=== PATIENT | female | born 1945 | race Caucasian/White ===

== ENCOUNTER 2019-02-13 11:16 | Emergency (ER) | payer MEDICARE ==
[~2019-02-13] VITALS: Ht 154.9 cm; Wt 45.5 kg
[2019-02-13] MEDS ORDERED: ASPE16CR TOP (12:00)
[2019-02-13] MEDS ORDERED: PROAAER10 INH (12:09)
[2019-02-13] MEDS ORDERED: PANT40TA3 PO (12:09)
[2019-02-13] MEDS ORDERED: BENA25CA4 PO (12:09)
[2019-02-13] MEDS ORDERED: VITA-157 PO (12:09)
[2019-02-13] MEDS ORDERED: RENV2TAB PO (12:09)
[2019-02-13] MEDS ORDERED: ONDA4TAB6 PO ×2 (12:09→16:19)
[2019-02-13] MEDS ORDERED: ATOR1TAB19 PO (12:09)
[2019-02-13] MEDS ORDERED: MAPA325T2 PO (12:09)
[2019-02-13] MEDS ORDERED: HYDR-3715 PO (12:09)
[2019-02-13] MEDS ORDERED: DEPA500T2 PO (12:09)
[2019-02-13] MEDS ORDERED: CLONI1TA PO ×2 (12:09)
[2019-02-13] MEDS ORDERED: LISI-538 PO (12:09)
[2019-02-13] MEDS ORDERED: BUPR150T5 PO (12:09)
[2019-02-13] MEDS ORDERED: ELIQ2.5T PO (12:09)
[2019-02-13] MEDS ORDERED: NS 500 ML IV ONE (12:45)
--- NOTE | 2019-02-13 13:04 | REP ---
PA and lateral chest: There are no comparisons. The lung bailey are hyperinflated but otherwise clear. Cardiac size is normal. The shona and mediastinum are unremarkable. There is a dual lumen right IJ central venous catheter with the tips at the confluence of the superior vena cava and right atrium in satisfactory position. There is a density in the right humeral head, nonspecific, blastic metastasis versus enchondroma versus bone infarct. Consider radionuclide bone scan. Impression: Hyperinflation. No acute cardiopulmonary findings. Dual lumen right IJ central venous catheter. Nonspecific density in the right humeral head. Consider radionuclide bone scan. Electronically Signed by Pj Haynes MD 02/13/2019 12:56 P
[2019-02-13 13:07] LABS: BASO # 0.1 10^3/uL (0.0-0.2); EOS # 0.1 10^3/uL (0.0-0.50); HEMATOCRIT 30.6 % (36.0-47.0); HEMOGLOBIN 9.7 g/dl (12.0-15.5); LYMPH # 1.2 10^3/uL (1.5-4.5); LYMPH % 16.2 % (24.0-44.0); MEAN CORPUSCULAR HEMOGLOBIN 31.6 pg (27.0-33.0); MEAN CORPUSCULAR HGB CONC 31.7 g/dl (32.0-36.5); MEAN CORPUSCULAR VOLUME 99.7 fl (80.0-96.0); MONO # 0.6 10^3/uL (0.0-0.8); MONO % 8.4 % (0.0-5.0); NEUTROPHILS # 5.2 10^3/uL (1.8-7.7); PLATELET COUNT, AUTOMATED 288 10^3/uL (150-450); RED BLOOD COUNT 3.07 10^6/uL (4.00-5.40); VENOUS BASE EXCESS -3.3 (-2.0-2.0); VENOUS HCO3 18.5 MEQ/L (23.0-27.0); VENOUS O2 SATURATION 99.3 % (60.0-80.0); VENOUS PARTIAL PRESSURE CO2 23.5 mmHg (38.0-50.0); VENOUS PARTIAL PRESSURE O2 203.1 mmHg (30.0-50.0); VENOUS PH 7.514 UNITS (7.330-7.430); VENOUS STANDARD HCO3 21.7 MEQ/L; VENOUS TOTAL CO2 19.2 MEQ/L (24.0-28.0); WHITE BLOOD COUNT 7.2 10^3/uL (4.0-10.0)
[2019-02-13 13:44] LABS: ALBUMIN 2.9 GM/DL (3.2-5.2); BILIRUBIN,DIRECT 0.1 MG/DL (0.0-0.2); BILIRUBIN,TOTAL 1.6 MG/DL (0.2-1.0); CK-MB VALUE MASS 1.7 NG/ML (<3.6); CREATININE FOR GFR 5.13 MG/DL (0.55-1.30); GLOMERULAR FILTRATION RATE 8.7 (>39); MB/CK RELATIVE INDEX 5.31 (< OR =4); POTASSIUM SERUM 4.1 MEQ/L (3.5-5.1); THYROID STIMULATING HORMONE 0.924 uIU/ML (0.358-3.740); TROPONIN I 0.02 NG/ML (< 0.10)
[2019-02-13] MEDS ORDERED: CEPHALEXIN 500 MG CAP PO ONE (15:15)
[2019-02-13] MEDS ORDERED: KEFL500C17 PO (15:32)
[2019-02-13 16:28] VITALS: BP 176/85
[2019-02-13] MEDS ORDERED: ONDANSETRON 4 MG ORAL DISINTEGRATING TAB (Q0162 PER 1MG) PO ONE (16:30)
[2019-02-13 16:47] VITALS: O2SAT 98
--- NOTE | 2019-02-14 21:12 | ECGEPIP ---
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
--- NOTE | 2019-02-22 09:42 | ED PDOC ---
Post-Departure Follow-Up certified letter sent to pt for fu of cxr .see report. find out pcp name and fax Ayo Felton MD Feb 22, 2019 09:42
== END 2019-02-13 17:10 | disposition home or self-care (01) ==
LOC: M ED 11:16
DX: N30.90 Cystitis, unspecified without hematuria (principal); E86.0 Dehydration; D63.1 Anemia in chronic kidney disease; J44.9 Chronic obstructive pulmonary disease, unspecified; I10 Essential (primary) hypertension; I48.91 Unspecified atrial fibrillation; E78.00 Pure hypercholesterolemia, unspecified; Z86.73 Personal history of transient ischemic attack (TIA), and cerebral infarction without residual deficits; Z99.81 Dependence on supplemental oxygen; Z79.899 Other long term (current) drug therapy; Z79.01 Long term (current) use of anticoagulants; Z88.0 Allergy status to penicillin; Z88.1 Allergy status to other antibiotic agents; Z87.891 Personal history of nicotine dependence
CPT/HCPCS: 36415; 71046; 80048; 80076; 81001; 82550; 82553; 82803; 84443; 84484; 85025; 87088; 87186; 93005; 93041; 99284; Q0162

== ENCOUNTER 2019-02-27 02:19 | Inpatient (IN) | payer MEDICARE ==
[~2019-02-27] VITALS: Ht 154.9 cm; Wt 46.9 kg
[2019-02-27] VITALS (9 sets, daily range): BP systolic 115–173; BP diastolic 57–100
[~2019-02-27 02:19] MED LIST: ASPE16CR TOP; ATOR1TAB19 PO; BENA25CA4 PO; BUPR150T5 PO; CLONI1TA PO; DEPA500T2 PO; ELIQ2.5T PO; HYDR-3715 PO; KEFL500C17 PO; LISI-538 PO; MAPA325T2 PO; ONDA4TAB6 PO; PANT40TA3 PO; PROAAER10 INH; RENV2TAB PO; VITA-157 PO
[2019-02-27 02:45] LABS: HEMATOCRIT 33.2 % (36.0-47.0); HEMOGLOBIN 10.4 g/dl (12.0-15.5); MEAN CORPUSCULAR HEMOGLOBIN 32.3 pg (27.0-33.0); MEAN CORPUSCULAR HGB CONC 31.3 g/dl (32.0-36.5); MEAN CORPUSCULAR VOLUME 103.1 fl (80.0-96.0); PLATELET COUNT, AUTOMATED 205 10^3/uL (150-450); RED BLOOD COUNT 3.22 10^6/uL (4.00-5.40); WHITE BLOOD COUNT 10.6 10^3/uL (4.0-10.0)
[2019-02-27] MEDS ORDERED: AMLO5TAB6 PO (02:51)
[2019-02-27] MEDS ORDERED: COLA100C5 PO (02:51)
[2019-02-27 03:11] LABS: ALBUMIN 2.6 GM/DL (3.2-5.2); ALT/SGPT 13 U/L (12-78); BILIRUBIN,DIRECT < 0.1 MG/DL (0.0-0.2); BILIRUBIN,TOTAL 0.7 MG/DL (0.2-1.0); BLOOD UREA NITROGEN 45 MG/DL (7-18); CALCIUM LEVEL 9.1 MG/DL (8.8-10.2); CARBON DIOXIDE LEVEL 32 MEQ/L (21-32); CHLORIDE LEVEL 98 MEQ/L (98-107); CREATININE FOR GFR 4.37 MG/DL (0.55-1.30); GLOMERULAR FILTRATION RATE 10.5 (>39); GLUCOSE, FASTING 53 MG/DL (70-100); LIPASE 1900 U/L (73-393); POTASSIUM SERUM 5.7 MEQ/L (3.5-5.1); SODIUM LEVEL 138 MEQ/L (136-145); TOTAL PROTEIN 5.6 GM/DL (6.4-8.2)
[2019-02-27 03:13] LABS: LYMPHOCYTES 14 % (16-52); METAMYELOCYTES 10 % (0-0); MONOCYTES 2 % (0-8); MYELOCYTES 1 % (0-0); NEUTROPHILS 69 % (35-75)
[2019-02-27 03:14] LABS: ANISOCYTOSIS 1+; PLATELET ESTIMATE NORMAL (NORMAL)
[2019-02-27 03:15] LABS: HYPOCHROMASIA 1+
[2019-02-27] MEDS ORDERED: MORPHINE 2 MG/ML 1ML SYRINGE (J2270) IV ONE (08:45)
[2019-02-27] MEDS ORDERED: ONDANSETRON 4MG/2ML VIAL (J2405) IV ONE ×3 (09:00→18:15)
--- NOTE | 2019-02-27 09:02 | REPVR ---
EXAM: CT Abdomen and Pelvis Without Contrast EXAM DATE/TIME: 02/27/2019 7:15 AM CLINICAL HISTORY: 73 years old, female; Abdominal pain; Generalized; Additional info: Diffuse abd ttp TECHNIQUE: Imaging protocol: Axial computed tomography images of the abdomen and pelvis without contrast. Coronal and sagittal reformatted images were created and reviewed. Radiation optimization: All CT scans at this facility use at least one of these dose optimization techniques: automated exposure control; mA and/or kV adjustment per patient size (includes targeted exams where dose is matched to clinical indication); or iterative reconstruction. COMPARISON: No relevant prior studies available. FINDINGS: Lungs: Centrilobular emphysema. Pleural space: Small left pleural effusion with adjacent compressive atelectasis. Liver: Normal. No mass. Gallbladder and bile ducts: Intra-and extrahepatic biliary ductal dilatation to the level of the ampulla. Markedly distended gallbladder without other specific signs of acute cholecystitis. Pancreas: Normal. No ductal dilation. Spleen: Normal. No splenomegaly. Adrenals: Normal. No mass. Kidneys and ureters: Bilateral renal cortical atrophy. Small exophytic right renal cyst Stomach and bowel: Moderate stool throughout the colon with distention of the cecum. Nonspecific bowel wall thickening involving stomach and multiple small bowel loops. Appendix: No evidence of appendicitis. Intraperitoneal space: There is small hemopneumoperitoneum highly concerning for hollow viscus perforation. The site of perforation is uncertain. Vasculature: Atherosclerotic disease of the coronary arteries. Atherosclerotic disease of the abdominal aorta. Mild aneurysmal dilatation of the infrarenal portion of the aorta measuring 5 cm. Inferior vena cava filter in place. Lymph nodes: Normal. No enlarged lymph nodes. Bladder: Unremarkable as visualized. Reproductive: Unremarkable as visualized. Bones/joints: Osteopenia. Multilevel degenerative disease and hypertrophy of the lumbar spine. Mild anterolisthesis of L4 on L5 stenosis of the spinal canal. Soft tissues: Unremarkable. IMPRESSION: Small hemopneumoperitoneum highly concerning for hollow viscus perforation. The site of perforation is uncertain. COMMENT: Consistent with the [employer]'s Incidental Findings Committee Report (J Am Sabrina Radiol 2010): Unless the patient's specific circumstances suggest otherwise, any liver lesion 0.5 cm or less, any cystic kidney lesion less than 1.0 cm, and/or any adrenal lesion 1.0 cm or less not otherwise characterized in this report as possessing suspicious or indeterminate imaging features is/are highly likely to be benign and do not require follow-up imaging or biopsy. Electronically signed by: Keaton Don On 02/27/2019 09:02:12 AM
[2019-02-27] MEDS ORDERED: metroNIDAZOLE 500 MG in APPROPRIATE DILUENT 1 EA IV ONE (09:30)
[2019-02-27] MEDS ORDERED: CIPROFLOXACIN 400 MG in APPROPRIATE DILUENT 1 EA IV ONE (09:45)
--- NOTE | 2019-02-27 10:21 | HPEPDOC ---
General Surgery H&P Date of Admission Feb 27, 2019 Attending Physician: CARL TAPIA MD History and Physical CHIEF COMPLAINT: abdominal pain HISTORY OF PRESENT ILLNESS: 73 F on hemodialysis presented to the ER at about 2:00 this morning with continuous crampy abdominal pain since at 3 am with nausea, though no vomiting found to have evidence for free air in the CT consistent with perforated viscus. Her daughter reports history of constipation. She felt constipated yesterday that she wanted to get some labs to disimpact herself. 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 She denies prior episodes similar to this. ALLERGIES: Please see below. HOME MEDICATIONS: Please see below. PAST MEDICAL HISTORY: 1. ESRD on dialysis 2. DVT with filter on eliquis last intake yesterday morning. 3. Hypertension PAST SURGICAL HISTORY: 1. IVC filter 2. AV graft - not working 3. dialysis catheter 4. tubal ligation. PERSONAL/SOCIAL HISTORY: Denies smoking, alcohol use, or recreational drug use. REVIEW OF SYSTEMS: GENERAL: Denies chills, fatigue, fever, weight gain and weight loss. HEENT: Denies blurred vision and double vision. Denies ear symptoms. Denies hoarseness. NECK: Denies any neck pain. CARDIOVASCULAR: Denies chest pain and palpitations. MUSCULOSKELETAL: Denies arthralgias, back pain and thrombophlebitis. SKIN: Denies rash. NEUROLOGIC: Denies headache, stroke and transient ischemic attack. PSYCHIATRIC: Denies anxiety and depression. ENDOCRINE: Denies thyroid disease. HEMATOLOGY/ONCOLOGY: Denies any bleeding or clotting disorder. HEART: Denies any chest pains, palpitations, paroxysmal dyspnea, orthopnea. PULMONARY: Denies chronic cough, dyspnea and wheezing. GASTROINTESTINAL: Denies rectal bleeding, family history of colon cancer, constipation, diarrhea, dysphagia, heartburn and jaundice. GENITOURINARY: Denies dysuria, frequency, hematuria and nocturia. ENDOCRINE: Denies polydipsia, polyphagia, polyuria, heat or cold intolerance. INFECTIOUS: Denies any recent upper respiratory tract infection, UTI, need for use of antibiotics. NUTRITION: Reports good appetite. PHYSICAL EXAMINATION: VITAL SIGNS: Please see below. GENERAL APPEARANCE: Patient is noticeably uncomfortable, not moving on the bed with grimacing with slight movements. Awake, alert, oriented. HEENT: Dry lips normocephalic, atraumatic. Mild pale palpebral conjunctiva. CHEST: No chest wall abnormalities. Normal respiratory motion/effort. NECK: No obvious jugular venous distention. LUNGS: Lung sounds are clear to auscultation bilaterally. No wheezing appreciated. Right sided permacath HEART: No chest wall abnormalities. Heart rate and rhythm are regular with no murmurs. ABDOMEN: Slightly rounded abdomen, moderately distended but soft. Tympanitic to percussion, quiet abdomen. Tender to palpation throughout the abdomen with involuntary guarding. SKIN: Warm and dry. EXTREMITIES: Left arm AV graft. NEUROLOGICAL: Awake, alert, oriented. ANCILLARIES: . LABORATORY DATA: Please see below. MICROBIOLOGY: Please see below. IMAGING: CT abdomen and pelvis Small hemopneumoperitoneum highly concerning for hollow viscus perforation. The site of perforation is uncertain. IMPRESSION AND PLAN: Perforated viscus unknown etiology with generalized peritonitis. I suspect most likely diverticulitis. Patient has been advised of need for surgery. She has generalized peritonitis. Based from her history probably will be acute diverticulitis with perforation. Other differentials would include a perforated ulcer, small bowel. Would start with laparoscopy but most likely would have enough with laparotomy. I advised the patient that she may need temporary colostomy if this turns out to be from diverticulitis with associated: Inflammation. She reports allergy to penicillin when she was in her teens forming a rash, denies any shortness of breath, tongue or throat swelling. She has so far received a dose of metronidazole and is supposed to get a dose of ciprofloxacin. I'll instead Humira dose of Invanz. Her blood sugars noted to be low at 50 a repeat was 34. She will get a dose of D50 IV and I'll put her on glucose containing IV fluids and this will be monitored closely perioperatively. Vital Signs Vital Signs Date Time Temp Pulse Resp B/P (MAP) Pulse Ox O2 Delivery O2 Flow Rate FiO2 02/27/19 09:13 18 02/27/19 08:30 74 157/68 (97) 99 02/27/19 06:00 97.6 Room Air 02/27/19 02:29 2.0 Laboratory Data Labs 24H Laboratory Tests 2 02/27/19 02:39: Nucleated Red Blood Cells % (auto) 0.0, Neutrophils 69, Band Neutrophils 4, Lymphocytes (Manual) 14L, Monocytes (Manual) 2, Metamyelocytes 10H, Myelocytes 1H, Platelet Estimate NORMAL, Hypochromasia 1+, Anisocytosis 1+, Anion Gap 8, Glomerular Filtration Rate 10.5L, Calcium Level 9.1, Aspartate Amino Transf (AST/SGOT) 47H, Alanine Aminotransferase (ALT/SGPT) 13, Alkaline Phosphatase 77, Total Bilirubin 0.7, Direct Bilirubin < 0.1, Total Protein 5.6L, Albumin 2.6L, Albumin/Globulin Ratio 0.87L, Lipase 1900H 02/27/19 06:25: Urine Color YELLOW, Urine Appearance CLOUDYH, Urine pH 8.0, Urine Specific Gr avity 1.013, Urine Protein 2+H, Urine Glucose (UA) NEGATIVE, Urine Ketones NEGATIVE, Urine Blood 1+H, Urine Nitrite NEGATIVE, Urine Bilirubin NEGATIVE, Urine Urobilinogen 0.2, Urine Leukocyte Esterase 2+H, Urine WBC (Auto) 58H, Urine RBC (Auto) 6H, Urine Hyaline Casts (Auto) 0, Urine Bacteria (Auto) 2+H, Urine Squamous Epithelial Cells 8, Urine Transitional Epithelial Cells 3, Urine Renal Epithelial Cells 1, Urine Amorphous Sediment MODERATEH, Urine Sperm (Auto) CBC/BMP Laboratory Tests 02/27/19 02:39 Red Blood Count 3.22 L, Mean Corpuscular Volume 103.1 H, Mean Corpuscular Hemoglobin 32.3, Mean Corpuscular Hemoglobin Concent 31.3 L, Red Cell Distribution Width 17.9 H 02/27/19 07:30 Microbiology Microbiology 02/27/19 Urine Culture, Received Pending Home Medications Scheduled Amlodipine Besylate (Amlodipine Besylate) 5 Mg Tablet, 5 MG PO QHS, (Reported) Apixaban (Eliquis) 2.5 Mg Tablet, 2.5 MG PO BID, (Reported) Atorvastatin Calcium (Atorvastatin Calcium) 10 Mg Tablet, 10 MG PO DAILY, (Repor debora) Bupropion HCl (Bupropion Xl) 150 Mg Tab.er.24h, 150 MG PO DAILY, (Reported) Clonidine Hcl (Clonidine HCl) 0.1 Mg Tablet, 0.1 MG PO TID, (Reported) Divalproex Sodium (Depakote ER) 500 Mg Tab.er.24h, 2 TAB PO QHS, (Reported) Pantoprazole Sodium (Pantoprazole Sodium) 40 Mg Tablet.dr, 40 MG PO DAILY, (Reported) Sevelamer Carbonate (Renvela) 800 Mg Tablet, 1,600 MG PO WM, (Reported) Vit B Comp No.3/Folic/C/Biotin (Mariza-Janak Rx Tablet) 1 Each Tablet, 1 TAB PO DAILY, (Reported) Scheduled PRN Acetaminophen (Mapap) 325 Mg Tablet, 650 MG PO Q4H PRN for PAIN, (Reported) Albuterol Sulfate (Proair Hfa) 8.5 Gm Hfa.aer.ad, 2 PUFF INH Q4H PRN for SHORTNESS OF BREATH, (Reported) Diphenhydramine HCl (Benadryl) 25 Mg Capsule, 12.5 MG PO PRN PRN for ITCHING, (Reported) Docusate Sodium (Colace) 100 Mg Capsule, 100 MG PO DAILY PRN for CONSTIPATION, (Reported) Hydrocodone/Acetaminophen (Hydrocodone-Acetamin 5-325 mg) 1 Each Tablet, 1 TAB PO BID PRN for PAIN, (Reported) Naproxen Sodium (Aleve) 220 Mg Tablet, 220 MG PO QHS PRN for PAIN, (Reported) Ondansetron (Ondansetron Odt) 4 Mg Tab.rapdis, 4 MG PO Q6H PRN for NAUSEA OR VOMITING, (Reported) Peppermint Oil (Ibgard) 90 Mg Capdr...er, 90 MG PO for IBS, (Reported) Allergies Coded Allergies: Penicillins (Verified Allergy, Intermediate, RASH, 02/27/19) ciprofloxacin (Verified Adverse Reaction, Mild, NV, 02/27/19) A-FIB/CHADSVASC A-FIB History Current/History of A-Fib/PAF?: No Current PO Anticoag Therapy: Yes CARL TAPIA MD Feb 27, 2019 10:21
[2019-02-27] MEDS ORDERED: ALEV220T22 PO (10:31)
[2019-02-27] MEDS ORDERED: PEPP90CA PO (10:31)
[2019-02-27] MEDS ORDERED: BUPR-365 PO (10:31)
[2019-02-27] MEDS ORDERED: RENATAB6 PO (10:31)
[2019-02-27] MEDS ORDERED: ROCURONIUM BROMIDE 50 MG/5 ML VIAL As Ordered ONE (10:41)
[2019-02-27] MEDS ORDERED: PROPOFOL 200 MG/20 ML VIAL As Ordered ONE (10:41)
[2019-02-27] MEDS ORDERED: LIDOCAINE 2% INJ 100 MG/5 ML SDV (FOR ANES.) As Ordered ONE (10:41)
[2019-02-27] MEDS ORDERED: dexameTHASONE 4 MG/ML 1ML VIAL (J1100) As Ordered ONE (10:43)
[2019-02-27] MEDS ORDERED: fentaNYL 250 MCG/5 ML INJECTION (J3010) As Ordered ONE (10:44)
[2019-02-27] MEDS ORDERED: MIDAZOLAM INJ 2 MG/2 ML VIAL (J2250) As Ordered ONE (10:44)
[2019-02-27] MEDS ORDERED: PHENYLEPHRINE INJ 10MG/ML VIAL (J2370) As Ordered ONE (10:46)
[2019-02-27] MEDS ORDERED: DEXTROSE 50% 50 ML SYRINGE As Ordered ONE ×2 (10:54→12:50)
[2019-02-27] MEDS ORDERED: MORPHINE 4 MG/ML 1ML VIAL/SYRINGE (J2270) IV ONE (11:00)
[2019-02-27] MEDS ORDERED: DEXTROSE 50% 50 ML SYRINGE IV ONE (11:00)
[2019-02-27] MEDS ORDERED: D5W/0.45% SODIUM CHLORIDE 1,000 ML IV SCH ×3 (11:00→15:45)
[2019-02-27] MEDS ORDERED: ERTAPENEM SODIUM 1 GM in NS MINI-BAG PLUS 50 ML IV ONE (11:00)
[2019-02-27] MEDS ORDERED: LIDOCAINE 1% SDV INJ 30 ML VIAL As Ordered ONE (11:22)
[2019-02-27] MEDS ORDERED: BUPIVACAINE HCL 0.25% 30 ML VIAL As Ordered ONE (11:22)
[2019-02-27] MEDS ORDERED: ONDANSETRON 4MG/2ML VIAL (J2405) As Ordered ONE ×2 (11:50→13:24)
[2019-02-27] MEDS ORDERED: DEXTROSE 50% 50 ML SYRINGE ONE (12:50)
[2019-02-27] MEDS ORDERED: LIDOCAINE 1% SDV INJ 30 ML VIAL ONE (12:50)
[2019-02-27] MEDS ORDERED: BUPIVACAINE HCL 0.25% 30 ML VIAL ONE (12:50)
[2019-02-27] MEDS ORDERED: DEXTROSE 50% 50 ML VIAL ONE (12:50)
[2019-02-27] MEDS ORDERED: DEXTROSE 50% 50 ML VIAL As Ordered ONE (12:50)
--- NOTE | 2019-02-27 12:50 | ECGEPIP ---
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
[2019-02-27] MEDS ORDERED: SUGAMMADEX SODIUM 500 MG/5 ML VIAL (BRIDION) As Ordered ONE (13:37)
[2019-02-27] MEDS ORDERED: D5W/0.9% SODIUM CHLORIDE 1,000 ML IV SCH ×2 (14:01→15:00)
[2019-02-27] MEDS ORDERED: ACETAMINOPHEN TAB 650MG DOSE (2X325MG) PO PRN (14:15)
[2019-02-27] MEDS ORDERED: GLUCAGON FOR INJ 1 MG VIAL (J1610) SC PRN (14:15)
[2019-02-27] MEDS ORDERED: diphenhydrAMINE 12.5MG/5ML ELIXIR UDC PO PRN (14:15)
[2019-02-27] MEDS ORDERED: ALBUTEROL 90 MCG/ACT 8GM HFA INHALER INH PRN (14:15)
[2019-02-27] MEDS ORDERED: GLUCOSE 4 GM CHEW TABLET PO PRN (14:15)
[2019-02-27] MEDS ORDERED: ERTAPENEM SODIUM 1 GM in NS MINI-BAG PLUS 50 ML IV SCH (14:15)
[2019-02-27] MEDS ORDERED: DEXTROSE 50% 50 ML SYRINGE IV PRN (14:15)
--- NOTE | 2019-02-27 14:20 | ROOPDOC ---
[facility] Report Of Operation Report of Operation DATE OF PROCEDURE: 02/27/19 PREPROCEDURE DIAGNOSES: perforated viscus, peritonitis. POSTPROCEDURE DIAGNOSES: perforation at sigmoid colon, diverticulitis vs fecal impaction with perforation. PROCEDURE: Diagnostic Laparoscopy, Converted to Open Exploration, Sigmoid Colectomy with Colostomy. SURGEON: Luisito March MD ANESTHESIA: General Anesthesia. ESTIMATED BLOOD LOSS: Approximately 50 mL. COMPLICATIONS: none, patient hemodynamically stable, extubated but still critically ill. PROCEDURE NOTE: large area of perforation of the sigmoid colon at the postero- lateral wall with fecal soilage of the area, minimal purulent fluid in the pelvis and in the right perihepatic, fecal soilage along left gutter. The area proximal and distal to the perforation remains healthy but her colon including the rectal stump is filled with large, hard stools. DESCRIPTION OF PROCEDURE: Patient was given metronidazole 500 mg IV in the emergency room. I had them give her a dose of Invanz 1 g IV preoperatively. She had apparent skin reaction to the ciprofloxacin 500 mg IV. She was brought to the operating room, placed supine on the table with both arms tucked. Compression boots placed on both low er extremities were DVT prophylaxis. General endotracheal anesthesia started. Anesthesia placed a right radial A-line. Prabhakar catheter was placed for urine output monitoring. Her abdomen was widely prepped and draped down to the peritoneum the usual sterile fashion. We paused for a surgical timeout using both pre-incision safety checklist to verify correct patient, procedure site and additional clinical information prior to beginning the procedure. I began by marking the skin landmarks in preparation for possible colostomy on both sides. I entered abdomen via a small left upper quadrant incision where a Veress needle was inserted in a controlled fashion. CO2 insufflation started to pressure 15 mmHg. Using a same incision a 5 mm optical trocar was placed und er direct vision laparoscope. Insertion site was inspected for injury and none was found. I surveyed the abdomen and immediately noted inflammatory swelling and stool as well as exudates located at the left lower abdomen and pelvis consistent with most likely perforated diverticulitis. There were no other noticeable fluid collections on survey of the abdomen. After determining the most likely site of perforation we ended up for laparoscopy and converted to open laparotomy. Midline incision was created about 2-3 cm above the umbilicus and taken to the level of the symphysis pubis. The subcutaneous layers as well as the anterior fascia was divided with cautery. The posterior sheath and peritoneum was lifted up in between hemostats and opened up under direct vision. This was then enlarged throughout the whole of the skin incision. On entry there was a small amount of purulent material noted in the pelvis. She was placed on a steep Trendelenburg position, her left side tilted up. The Index self-retaining retr actor was set up. The small bowel was retracted away from the pelvis towards the upper quadrants. As previously noted during laparoscopy there was some stool spillage localized on the left side. The omentum was lifted away from the area. There was no gross obstruction as the colon before and after the area of perforation seems to be of the same caliber. She has a very floppy sigmoid colon. She has hard stools all throughout her colon, with noticeable bulging into the wall of the colon with no gross distention noted. She has a very thin mesentery. The sigmoid colon was retracted medially and its attachments to the lateral abdominal and pelvic sidewall along the line of Toldt was opened up. After cleaning off the small amount of stool that spilled out there is a distinct area of perforation the size of a third of the wall on the posterior lateral wall of the mid sigmoid area with a piece of hard stool protruding out from the hole. She does have small amount of diverticulosis within the area. There is only a small amount of inflammatory reaction and this is well localized to the area of perforation. I chose an area distally where the colon seems away from the inflammation I pushed the hard stools distally towards the rectum. A mesenteric window was created and the colon was divided with a 75 mm ALISHA stapler with a green load. Continue to try to push the stools away from the area now is afraid that the hard and stools in the rectum may cause an obstruction thus a ran a running suture of 3-0 Prolene to reinforce the staple line as well as to identify this later on. I felt there is a small amount of sigmoid and left may be on to 2 cm at the cuff. I continued taking down the sigmoid colon mesentery be on the area of perforation and away from the retroperitoneum. I tried to identify the ureter but due to the inflammation, fecal soilage I was not able to definitely identify this but my dissection was well away from the retroperitoneum. The sigmoid colon mesentery was divided with Harmonic scalpel to an area well away from the perforation at the junction of the descending and sigmoid colon and this is where I divided the colon proximally with the same 75 mm ALISHA stapler with green load. The lateral attachments of the descending colon was freed up along the white line of Toldt to the splenic flexure and the descending colon was freed up from the retroperitoneal attachments and lateral to medial dissection but the splenic flexure was left in place mostly. She has adequate length for the colostomy with this. I opened up part of the medial peritoneal reflection to enable the stump of the sigmoid/descending colon to reach the abdominal wall. After passing off the specimen, I then irrigated the abdomen with several liters of warm saline on all four quadrants. I created a circular skin incision on my previously chose an area for colostomy placement on the left lower quadrant area. The subcutaneous tissue was dissected out and divided. The fascia was opened up and the rectus muscles bluntly dissected. The posterior sheath was opened up and enlarged to accommodate 2 fingerbreadths. The colon stump was then delivered through this and positioned in a way that the mesentery is not twisted. After this I irrigated the abdomen and pelvis in all 4 quadrants and in particular in the pelvis and left side of the pelvic sidewall with saline until clear returns. I left a 19 Abdirizak drain going into the pelvis posterior to the rectal stump coming through the right lower quadrant abdominal wall. The peritoneum on the infraumbilical area as well as posterior sheath coming towards the umbilicus was closed under direct visualization with 0 Vicryl. The anterior fascia was then closed starting from bottom with a running suture of double looped 1 PDS on the upper portion of the incision both the anterior and posterior fascia was incorporated with the fascial closure with another one looped PDS. This was tied secure. The subcutaneous tissue was irrigated and slightly undermined to allow for closure. We changed gloves for skin closure. The skin was then closed with imer loosely and I placed Telfa strips to act as lexy for possible subsequent drainage. The drain was secured to the skin. The colostomy was then matured in Breanna fashion. I tried to fish out the accessible hard stools in the descending colon and ran a couple of large stools removed. The colostomy appliance was placed and postoperative dressings were placed. Patient remained hemodynamically stable throughout the procedure. She was promptly awakened, extubated her Prabhakar catheter was removed testis was not putting out much. She was brought to the recovery room in stable condition. LUISITO MARCH MD Feb 27, 2019 14:20
--- NOTE | 2019-02-27 14:21 | POST-OPPD ---
Postoperative Procedure Note Date Of Procedure: Feb 27, 2019 DATE OF PROCEDURE: 02/27/19 PREPROCEDURE DIAGNOSES: perforated viscus, peritonitis. POSTPROCEDURE DIAGNOSES: perforation at sigmoid colon, diverticulitis vs fecal impaction with perforation. PROCEDURE: Diagnostic Laparoscopy, Converted to Open Exploration, Sigmoid Colectomy with Colostomy. SURGEON: Luisito March MD ANESTHESIA: General Anesthesia. ESTIMATED BLOOD LOSS: Approximately 50 mL. COMPLICATIONS: none, patient hemodynamically stable, extubated but still critically ill. Blood sugars are on the low side PROCEDURE NOTE: large area of perforation of the sigmoid colon at the postero- lateral wall with fecal soilage of the area, minimal purulent fluid in the pelvis and in the right perihepatic, fecal soilage along left gutter. The area proximal and distal to the perforation remains healthy but her colon including the rectal stump is filled with large, hard stools. SPECIMENS: sigmoid colon DRAINS: 19 shade drain to deep pelvis LUISITO MARCH MD Feb 27, 2019 14:21
[2019-02-27] MEDS ORDERED: ACETAMINOPHEN 1000MG 100ML IV BTL (OFIRMEV) (J0131 PER 10MG) As Ordered ONE (14:32)
[2019-02-27] MEDS ORDERED: METOCLOPRAMIDE INJ 10MG/2ML VIAL (J2765) As Ordered ONE (14:39)
[2019-02-27] MEDS ORDERED: KETOROLAC 30 MG/ML VIAL (J1885) As Ordered ONE (14:40)
[2019-02-27] MEDS ORDERED: fentaNYL 100 MCG/2 ML INJECTION (J3010) IV PRN (15:00)
[2019-02-27] MEDS ORDERED: ACETAMINOPHEN IV ONE (15:00)
[2019-02-27] MEDS ORDERED: ONDANSETRON 4MG/2ML VIAL (J2405) IV PRN (15:00)
[2019-02-27] MEDS ORDERED: METOCLOPRAMIDE INJ 10MG/2ML VIAL (J2765) IV PRN (15:00)
[2019-02-27] MEDS ORDERED: DILUENT IV ONE (15:00)
[2019-02-27] MEDS ORDERED: HYDROMORPHONE HCL 0.5 MG/ 0.5 ML SYRINGE (J1170 PER 1) As Ordered ONE ×2 (15:13→15:14)
[2019-02-27] MEDS: HYDROMORPHONE HCL 0.5 MG/ 0.5 ML SYRINGE (J1170 PER 1) IV PRN ×5 (15:15→15:35)
[2019-02-27] MEDS ORDERED: fentaNYL 100 MCG/2 ML INJECTION (J3010) As Ordered ONE (15:39)
[2019-02-27] MEDS: cloNIDine 0.1 MG TAB PO SCH ×3 (16:00→23:36)
--- NOTE | 2019-02-27 16:01 | CR.PDOC ---
General Date of Consultation: Feb 27, 2019 Attending Physician: CARL TAPIA MD Consultation REASON FOR CONSULTATION/CHIEF COMPLAINT: . Management of medical comorbidities HISTORY OF PRESENT ILLNESS: . 73-year-old female with past medical history of hypertension, dyslipidemia, end- stage renal disease on hemodialysis, DVT status post IVC filter on Eliquis presented to the ER with a chief complaint of abdominal pain. The patient's history was limited as she was seen postoperatively. According to the patient's daughter, who is at the bedside the patient started to have crampy abdominal pain that started about 5 days ago. She notes that the patient was nauseous, but denied any vomiting, fever, chills, or any diarrhea. In the ER, a CT scan of the abdomen/pelvis was notable for a perforated viscus. The patient was admitted under the Gen. surgery service and taken to the operating room urgently for surgical intervention. The hospitalist service has been consulted for management of the patient's medical comorbidities. ALLERGIES: Please see below. HOME MEDICATIONS: Please see below. PAST MEDICAL HISTORY: As noted in HPI. PAST SURGICAL HISTORY: 1. IVC filter 2. AV graft - not working 3. dialysis catheter 4. tubal ligation. REVIEW OF SYSTEMS: 10 point review of systems Limited due to the patient's clinical condition postoperatively PHYSICAL EXAMINATION: VITAL SIGNS: Please see below. GENERAL APPEARANCE: . Awake, alert, answering questions. In mild-moderate distress due to pain following surgery. HEENT: . Normocephalic, atraumatic RESPIRATORY: . Diminished breath sounds diffusely CARDIOVASCULAR: . Normal rate, normal S1, S2 ABDOMEN: . Patient noted to have surgical dressing placed vertically across abdominal wall. Colostomy bag + in the LLQ EXTREMITIES: . No erythema, no tenderness LABORATORY DATA: Please see below. ASSESSMENT/PLAN: Perforation at Sigmoid Colon CT abd/pel notable for perforated viscus s/p Diagnostic Laparoscopy converted to Open Exploration with Sigmoid Colectomy and Colostomy Placement on 02/27 Cultures from the OR pending Patient on Invanz Keep NPO Patient hemodynamically stable post-operatively--We will cont to monitor We will follow up Gen Surg recommendations Hypoglycemia The patient's blood glucose level was noted to be 37 this AM s/p dextrose and IVF Hydration with D5W with appropriate response---Patient not on any oral hypoglycemic therapy or Insulin based off of med reconciliation We will cont D5W with IVF at a judicious rate given the patient's history of requiring HD. We will cont to monitor the patient's fingerstick levels ESRD on HD Nephrology consulted, dialysis as per them Hx of DVT s/p IVC Filter Patient on Eliquis at baseline, this has been held 2/ surgery To be continued as per Gen Surg HTN Cont Norvasc, Clonidine Dyslipidemia Continue statin GI prophylaxis Protonix IV DVT prophylaxis SCDs/TEDs (Restart Eliquis/ or start Heparin SC on 03/01 as per Gen Surg discretion) Vital Signs/I&O Vital Signs Date Time Temp Pulse Resp B/P (MAP) Pulse Ox O2 Delivery O2 Flow Rate FiO2 02/27/19 15:30 16 97 2 02/27/19 15:15 83 171/77 (108) 02/27/19 15:00 96.6 02/27/19 11:27 Room Air Laboratory Data Labs 24H Laboratory Tests 2 02/27/19 02:39: Nucleated Red Blood Cells % (auto) 0.0, Neutrophils 69, Band Neutrophils 4, Lymphocytes (Manual) 14L, Monocytes (Manual) 2, Metamyelocytes 10H, Myelocytes 1H, Platelet Estimate NORMAL, Hypochromasia 1+, Anisocytosis 1+, Anion Gap 8, Glomerular Filtration Rate 10.5L, Calcium Level 9.1, Aspartate Amino Transf (AST/SGOT) 47H, Alanine Aminotransferase (ALT/SGPT) 13, Alkaline Phosphatase 77, Total Bilirubin 0.7, Direct Bilirubin < 0.1, Total Protein 5.6L, Albumin 2.6L, Albumin/Globulin Ratio 0.87L, Lipase 1900H 02/27/19 06:25: Urine Color YELLOW, Urine Appearance CLOUDYH, Urine pH 8.0, Urine Specific [place] 1.013, Urine Protein 2+H, Urine Glucose (UA) NEGATIVE, Urine Ketones NEGATIVE, Urine Blood 1+H, Urine Nitrite NEGATIVE, Urine Bilirubin NEGATIVE, Urine Urobilinogen 0.2, Urine Leukocyte Esterase 2+H, Urine WBC (Auto) 58H, Urine RBC (Auto) 6H, Urine Hyaline Casts (Auto) 0, Urine Bacteria (Auto) 2+H, Urine Squamous Epithelial Cells 8, Urine Transitional Epithelial Cells 3, Urine Renal Epithelial Cells 1, Urine Amorphous Sediment MODERATEH, Urine Sperm (Auto) 02/27/19 10:34: Bedside Glucose (Misc Panel) 37*L 02/27/19 11:28: Bedside Glucose (Misc Panel) 154H 02/27/19 12:41: POC pH (Misc Panel) 7.343L, POC Base Excess (Misc Panel) 2.0, POC Saturated Perc ent O2 (Misc) 100H, POC pO2 (Misc Panel) 257.0H, POC pCO2 (Misc Panel) 51.1H, POC HCO3 (Misc Panel) 27.7H, POC Glucose (Misc Panel) 88, POC Sodium (Misc Panel) 136, POC Potassium (Misc Panel) 4.1, POC Total CO2 (Misc Panel) 29.0H, POC Ionized Calcium (Misc Panel) 4.7, POC Hemoglobin (Calculated)(Misc) 9.5L, POC Hematocrit (Misc Panel) 28.0L 02/27/19 14:24: Bedside Glucose (Misc Panel) 143H CBC/BMP Laboratory Tests 02/27/19 02:39 Red Blood Count 3.22 L, Mean Corpuscular Volume 103.1 H, Mean Corpuscular Hemoglobin 32.3, Mean Corpuscular Hemoglobin Concent 31.3 L, Red Cell Distribution Width 17.9 H 02/27/19 07:30 Microbiology Microbiology 02/27/19 Anaerobic Culture, Received Pending 02/27/19 Urine Culture, Received Pending 02/27/19 Gram Stain - Final, Resulted 02/27/19 Abscess Culture, Resulted Pending Allergies Coded Allergies: Penicillins (Verified Allergy, Intermediate, RASH, 02/27/19) ciprofloxacin (Verified Adverse Reaction, Mild, NV, 02/27/19) Home Medications Scheduled Amlodipine Besylate (Amlodipine Besylate) 5 Mg Tablet, 5 MG PO QHS, (Reported) Apixaban (Eliquis) 2.5 Mg Tablet, 2.5 MG PO BID, (Reported) Atorvastatin Calcium (Atorvastatin Calcium) 10 Mg Tablet, 10 MG PO DAILY, (Reported) Bupropion HCl (Bupropion Xl) 150 Mg Tab.er.24h, 150 MG PO DAILY, (Reported) Clonidine Hcl (Clonidine HCl) 0.1 Mg Tablet, 0.1 MG PO TID, (Reported) Divalproex Sodium (Depakote ER) 500 Mg Tab.er.24h, 2 TAB PO QHS, (Reported) Pantoprazole Sodium (Pantoprazole Sodium) 40 Mg Tablet.dr, 40 MG PO DAILY, (Reported) Sevelamer Carbonate (Renvela) 800 Mg Tablet, 1,600 MG PO WM, (Reported) Vit B Comp No.3/Folic/C/Biotin (Mariza-Janak Rx Tablet) 1 Each Tablet, 1 TAB PO DAILY, (Reported) Scheduled PRN Acetaminophen (Mapap) 325 Mg Tablet, 650 MG PO Q4H PRN for PAIN, (Reported) Albuterol Sulfate (Proair Hfa) 8.5 Gm Hfa.aer.ad, 2 PUFF INH Q4H PRN for SHOR TNESS OF BREATH, (Reported) Diphenhydramine HCl (Benadryl) 25 Mg Capsule, 12.5 MG PO PRN PRN for ITCHING, (Reported) Docusate Sodium (Colace) 100 Mg Capsule, 100 MG PO DAILY PRN for CONSTIPATION, (Reported) Hydrocodone/Acetaminophen (Hydrocodone-Acetamin 5-325 mg) 1 Each Tablet, 1 TAB PO BID PRN for PAIN, (Reported) Naproxen Sodium (Aleve) 220 Mg Tablet, 220 MG PO QHS PRN for PAIN, (Reported) Ondansetron (Ondansetron Odt) 4 Mg Tab.rapdis, 4 MG PO Q6H PRN for NAUSEA OR VOMITING, (Reported) Peppermint Oil (Ibgard) 90 Mg Capdr...er, 90 MG PO for IBS, (Reported) DON DAVIS MD Feb 27, 2019 16:01
[2019-02-27] MEDS ORDERED: KETOROLAC 30 MG/ML VIAL (J1885) IV ONE (17:00)
[2019-02-27] MEDS ORDERED: HumaLOG INSULIN (NovoLOG) PER UNIT SC SCH ×2 (17:30→21:00)
[2019-02-27] MEDS: PANTOPRAZOLE 40MG INJ (PROTONIX) (C9113) IV SCH (17:44)
[2019-02-27 18:03] LABS: HEMATOCRIT 32.8 % (36.0-47.0); HEMOGLOBIN 10.1 g/dl (12.0-15.5); MEAN CORPUSCULAR HEMOGLOBIN 32.2 pg (27.0-33.0); MEAN CORPUSCULAR HGB CONC 30.8 g/dl (32.0-36.5); MEAN CORPUSCULAR VOLUME 104.5 fl (80.0-96.0); PLATELET COUNT, AUTOMATED 219 10^3/uL (150-450); RED BLOOD COUNT 3.14 10^6/uL (4.00-5.40); WHITE BLOOD COUNT 8.7 10^3/uL (4.0-10.0)
[2019-02-27 18:25] LABS: CALCIUM LEVEL 8.1 MG/DL (8.8-10.2); CREATININE FOR GFR 4.7 MG/DL (0.55-1.30); GLOMERULAR FILTRATION RATE 9.6 (>39); POTASSIUM SERUM 4.8 MEQ/L (3.5-5.1)
[2019-02-27] MEDS ORDERED: PROMETHAZINE INJ 25 MG/ML VIAL (J2550) IV PRN (19:45)
[2019-02-27] MEDS: amLODIPine 5 MG TAB PO SCH ×2 (21:00→23:37)
[2019-02-27] MEDS: DIVALPROEX 500MG *ER* TAB PO SCH ×2 (21:00→23:37)
[2019-02-27] MEDS: ONDANSETRON 4MG/2ML VIAL (J2405) IV PRN (23:47)
[2019-02-27] MEDS: PERCOCET 5MG/325MG TAB PO PRN (23:48)
[2019-02-28] VITALS (21 sets, daily range): BP systolic 98–202; BP diastolic 54–98
[2019-02-28 05:08] LABS: HEMATOCRIT 27.1 % (36.0-47.0); HEMOGLOBIN 8.6 g/dl (12.0-15.5); MEAN CORPUSCULAR HEMOGLOBIN 32.2 pg (27.0-33.0); MEAN CORPUSCULAR HGB CONC 31.7 g/dl (32.0-36.5); MEAN CORPUSCULAR VOLUME 101.5 fl (80.0-96.0); PLATELET COUNT, AUTOMATED 202 10^3/uL (150-450); RED BLOOD COUNT 2.67 10^6/uL (4.00-5.40); WHITE BLOOD COUNT 7.4 10^3/uL (4.0-10.0)
[2019-02-28 05:18] LABS: CALCIUM LEVEL 7.8 MG/DL (8.8-10.2); CREATININE FOR GFR 2.8 MG/DL (0.55-1.30); GLOMERULAR FILTRATION RATE 17.5 (>39); POTASSIUM SERUM 4.7 MEQ/L (3.5-5.1)
[2019-02-28 06:13] LABS: ANISOCYTOSIS 1+; HYPOCHROMASIA 1+; LYMPHOCYTES 6 % (16-52); MONOCYTES 3 % (0-8); NEUTROPHILS 78 % (35-75); PLATELET ESTIMATE NORMAL (NORMAL); POIKILOCYTOSIS 1+
[2019-02-28] MEDS ORDERED: DEXTROSE 50% 50 ML SYRINGE IV STA ×3 (07:15→16:07)
--- NOTE | 2019-02-28 08:03 | CR ---
DATE OF CONSULTATION: 02/27/2019 NEPHROLOGY CONSULTATION FOR: Luisito March MD REASON FOR CONSULTATION: To assist in the management of end-stage renal disease. HISTORY OF PRESENT ILLNESS: Mrs. Teague is a 73-year-old, frail lady with known history of hypertension, dyslipidemia, end-stage renal disease requiring maintenance hemodialysis, prior history of deep venous thrombosis (DVT), status post inferior vena cava (IVC) filter placement and anticoagulation. She started dialysis while in [place] 3 years ago and has been receiving dialysis via a PermaCath. She did have an arteriovenous (AV) fistula, which did not develop. She transferred to [facility] dialysis just about couple of weeks ago as she is now living with her daughter. The patient is very weak and had abdominal pain. She has very poor appetite for last couple of weeks. She was initially treated for a urinary tract infection. However, yesterday she developed abdominal pain and presented to the emergency room this morning. She was found to have free air and possible perforated viscus. She was taken to operating room by Dr. March and underwent colon resection and colostomy. Apparently, she had very hard stool in her colon. Patient is now admitted to intensive care unit postoperatively. A nephrology consultation was requested by Dr. March just before taking her to the operating room (OR) and I have seen her now in intensive care unit after surgery. Patient is receiving maintenance hemodialysis on Friday, , and Friday schedule. She did miss her dialysis today. PAST MEDICAL AND SURGICAL HISTORY (significant for): 1. Hypertension. 2. Prior history of DVT, status post IVC filter placement and anticoagulation. 3. Dyslipidemia. 4. History of anemia secondary to end-stage renal disease. 5. History of gastroesophageal reflux disease. 6. Hyperlipidemia. 7. Depression. 8. Secondary hyperparathyroidism. MEDICATIONS: Her home medications include: - amlodipine 5 mg daily - Eliquis 2.5 mg twice a day - atorvastatin 10 mg daily - bupropion 150 mg daily - clonidine 0.1 mg three times a day - Depakote ER 500 mg 2 tablets at bedtime - Protonix 40 mg daily - Renvela 800 mg 2 tablets three times a day with meals - multivitamin 1 tablet daily She is also taking: - Tylenol as needed for pain - hydrocodone/acetaminophen 5/325 mg as needed for severe pain - Zofran for nausea - albuterol inhaler as needed for dyspnea ALLERGIES: She has allergy to PENICILLIN and CIPRO. PERSONAL AND SOCIAL HISTORY: Patient does not smoke or drink. She is currently living here in [facility], recently moved from [place]. FAMILY HISTORY: Is negative for end-stage renal disease and noncontributory for this admission. REVIEW OF SYSTEMS At present, patient is quite weak and nauseated. She just came out of the operating room after her colostomy. She denies any fever or chills. Ears, nose, and throat are unremarkable. Cardiovascular system negative for dyspnea or chest pain. Respiratory system is negative for cough or hemoptysis. Gastrointestinal (GI) system is significant for nausea and vomiting. She had abdominal pain, which started yesterday. She has history of poor appetite for last couple of weeks. Genitourinary () system is significant for recent urinary tract infection. Endocrine system is negative for diabetes or thyroid problems. Hematological system is significant for long-term anticoagulation and history of DVT in the past. Psychosocial system significant for depression. Neurological system is negative for known history of seizures or stroke. She is on Depakote, for which I do not have any details. Skin is negative for rash or ulcers. PHYSICAL EXAM: Temperature 96.6 degrees Fahrenheit, heart rate 82 per minute, and respiratory rate 16 per minute. Blood pressure is 150/60 mmHg and oxygen saturation 97%. Head is atraumatic. She is using oxygen via nasal cannula. Neck is supple and without jugular venous distention (JVD) or thyroid enlargement. There is a hemodialysis catheter in right internal jugular vein. Heart sounds are regular and lungs clear to auscultation. Abdomen has a drain in the right lower quadrant and colostomy in the left lower quadrant. Bowel sounds are not audible. Extremities have no cyanosis or clubbing. Neurologically, she is awake and able to answer simple questions. LAB DATA: On admission, her WBC count was 10.6, hemoglobin 10.4 and hematocrit 33.2. Sodium 138, potassium 5.7, CO2 32, BUN 45, and creatinine 4.37. Total protein 5.6 and albumin 2.6. Lipase level was 1900. A repeat potassium level was 5.0. CT scan of abdomen and pelvis done in the emergency room was consistent with viscus perforation as there was free air. PROBLEMS: 1. End-stage renal disease. Patient has been on maintenance hemodialysis on Friday, , and Friday schedule. She is due for dialysis today and we are going to dialyze her this afternoon in intensive care unit. In fact, dialysis staff is already here with the treatment and she will be dialyzed now. 2. Hypertension. She has been on antihypertensive medications and her end-stage renal disease is likely secondary to hypertensive kidney disease. Her blood pressure will need to be monitored closely postoperatively. Once her oral intake resumes, then she can start with oral antihypertensives. At present, her blood pressure is reasonable and will watch closely. 3. Hyperkalemia. She did have hyperkalemia on admission, which did improve. We are going to recheck her labs and dialyze her with 2.0 mEq potassium bath. 4. Anemia. She has anemia of chronic kidney disease and preoperatively her anemia was appropriate. No urgent need for a transfusion. 5. Perforated viscus, status post colostomy. Patient just had her surgery and is currently on Invanz. She will receive intravenous (IV) fluids for now as ordered by surgical service. I think 50-60 mL/h of IV fluid is appropriate. Once her oral intake resumes, then her IV fluid can be cut down. Thank you for involving me in the care of Mrs. Teague. We will follow her along with you.
[2019-02-28] MEDS: BISACODYL 10 MG SUPP PR SCH (08:48)
[2019-02-28] MEDS: cloNIDine 0.1 MG TAB PO SCH ×3 (08:48→20:46)
[2019-02-28] MEDS: PANTOPRAZOLE 40MG INJ (PROTONIX) (C9113) IV SCH (08:48)
[2019-02-28] MEDS: ATORVASTATIN 10 MG TAB PO SCH (08:48)
--- NOTE | 2019-02-28 09:54 | IPNPDOC ---
Subjective General Date/Time Seen The patient was seen on 02/28/19 at 09:49. Subject Chief Complaint/History The patient is a 73-year-old female admitted with a reason for visit of Perforated Viscus. HD stable. She had some dialysis done yesterday and was able to tolerate it. Denies nausea, reports discomfort at the midline incision. Denies SOB, chest pains. Current Medications Current Medications Current Medications Medications (Trade) Dose Ordered Sig/Katelyn Route PRN Reason Start Time Stop Time Status Last Admin Dose Admin Acetaminophen (Tylenol Tab) 650 mg Q4HP PRN PO MILD PAIN or TEMP > 101 02/27/19 14:15 Albuterol Sulfate (Proventil, Ventolin Hfa) 2 puff Q4H PRN INH SHORTNESS OF BREATH 02/27/19 14:15 Amlodipine Besylate (Norvasc) 5 mg QHS PO 02/27/19 21:00 02/27/19 23:37 Atorvastatin Calcium (Lipitor) 10 mg DAILY PO 02/28/19 09:00 02/28/19 08:48 Bisacodyl (Dulcolax Suppository) 10 mg DAILY OR 02/28/19 09:00 02/28/19 08:48 Clonidine HCl (Catapres) 0.1 mg TID PO 02/27/19 16:00 02/27/19 23:36 Dextrose (Dextrose 50%) 25 ml ASDIRECTED PRN IV SEE LABEL COMMENTS 02/27/19 14:15 Dextrose (Dextrose 50%) 50 ml STAT STAT IV 02/28/19 07:15 02/28/19 07:16 DC 02/28/19 08:48 Dextrose/Sodium Chloride 1,000 ml @ 30 mls/hr Q24H IV 02/27/19 15:00 02/27/19 16:00 DC Dextrose/Sodium Chloride 1,000 ml @ 50 mls/hr Q20H IV 02/27/19 15:45 02/28/19 11:44 02/27/19 17:39 Dextrose/Sodium Chloride 1,000 ml @ 100 mls/hr Q10H IV 02/27/19 11:00 02/27/19 14:16 DC Dextrose/Sodium Chloride 1,000 ml @ 100 mls/hr Q10H IV 02/27/19 14:01 02/27/19 15:35 DC Dextrose/Sodium Chloride 1,000 ml @ 125 mls/hr Q8H IV 02/27/19 14:01 02/27/19 14:35 DC Diphenhydramine HCl (Benadryl Elixir) 12.5 mg Q6H PRN PO ITCHING 02/27/19 14:15 Divalproex Sodium (Depakote Er) 1,000 mg QHS PO 02/27/19 21:00 02/27/19 23:37 Enoxaparin Sodium (Lovenox) 30 mg DAILY SC 03/01/19 09:00 03/01/19 09:00 DC Ertapenem 0.5 gm/ Sodium Chloride 50 ml @ 100 mls/hr Q24H IV 02/28/19 16:00 Ertapenem 1 gm/ Sodium Chloride 50 ml @ 100 mls/hr Q24H IV 02/27/19 14:15 02/27/19 14:40 DC Fentanyl Citrate (Sublimaze) 25 mcg Q5MP PRN IV MODERATE PAIN (PS 4-7) 02/27/19 15:00 02/27/19 16:00 DC Glucagon (Glucagon) 1 mg ASDIRECTED PRN SC SEE LABEL COMMENTS 02/27/19 14:15 Glucose (Glucose) 16 GM ASDIRECTED PRN PO SEE LABEL COMMENTS 02/27/19 14:15 Heparin Sodium (Porcine) (Heparin) 5,000 units Q12H SQ 03/01/19 09:00 Home Med (Med Rec Complete!) ASDIRECTED XX 02/27/19 10:45 02/27/19 10:45 DC Hydromorphone HCl (Dilaudid) 0.2 mg Q5MP PRN IV MODERATE/SEVERE PAIN (PS 5-10) 02/27/19 15:00 02/27/19 16:00 DC 02/27/19 15:35 Insulin Human Lispro (HumaLOG INSULIN) SEE PROTOCOL TABLE QHS SC 02/27/19 21:00 02/27/19 21:00 DC Insulin Human Lispro (HumaLOG INSULIN) See Protocol Table AC SC 02/27/19 17:30 02/28/19 07:16 DC Metoclopramide HCl (REGLAN INJection) 5 mg Q6HP PRN IV NAUSEA OR VOMITING 02/27/19 15:00 02/27/19 16:00 DC 02/27/19 14:50 Morphine Sulfate (Morphine Sulfate Inj) 4 mg Q3HP PRN IV SEVERE PAIN (PS 8-10) 02/27/19 14:15 Ondansetron HCl (ZOFRAN INJection) 4 mg Q4HP PRN IV NAUSEA OR VOMITING 02/27/19 15:00 02/27/19 16:00 DC Ondansetron HCl (ZOFRAN INJection) 4 mg Q6HP PRN IV NAUSEA OR VOMITING 02/27/19 14:15 02/27/19 23:47 Oxycodone/ Acetaminophen (Percocet 5mg/ 325mg Tablet) 1 tab Q4HP PRN PO MODERATE PAIN (PS 5-7) 02/27/19 14:15 02/27/19 23:48 Oxycodone/ Acetaminophen (Percocet 5mg/ 325mg Tablet) 2 tab Q6HP PRN PO SEVERE PAIN (PS 8-10) 02/27/19 14:15 Pantoprazole Sodium (Protonix) 40 mg DAILY IV 02/27/19 09:00 02/28/19 08:48 Promethazine HCl (PHENERGAN INJection) 25 mg Q6HP PRN IV NAUSEA 02/27/19 19:45 02/28/19 00:18 DC 02/27/19 19:58 Allergies Coded Allergies: Penicillins (Verified Allergy, Intermediate, RASH, 02/27/19) ciprofloxacin (Verified Adverse Reaction, Mild, NV, 02/27/19) Objective Physical Examination Examination GENERAL APPEARANCE: relatively comfortable. SKIN: warm and dry. NECK: Supple, no thyromegaly. No obvious jugular venous distention. LUNGS: [Clear to auscultation bilaterally. No wheezing appreciated]. HEART: [No chest wall abnormalities. Regular rate and rhythm with no murmurs appreciated]. ABDOMEN: Abdomen is round, soft, mildly distended. Midline incision dressing C/D/I. SABINA drain light serosanguenous. Mildly tender at lower midline incision. EXTREMITIES: no edema. Vital Signs Vital Signs Date Time Temp Pulse Resp B/P (MAP) Pulse Ox O2 Delivery O2 Flow Rate FiO2 02/28/19 09:30 90 116/57 (82) 98 2.0 137/54 02/28/19 08:00 98.9 13 02/27/19 11:27 Room Air I&Os I&O- Last 24 Hours up to 6 AM 02/28/19 06:00 Intake Total 2127 ml Output Total 555 ml Balance 1572 ml Laboratory Data Labs 24H Laboratory Tests 2 02/27/19 10:34: Bedside Glucose (Misc Panel) 37*L 02/27/19 11:28: Bedside Glucose (Misc Panel) 154H 02/27/19 12:41: POC pH (Misc Panel) 7.343L, POC Base Excess (Misc Panel) 2.0, POC Saturated Percent O2 (Misc) 100H, POC pO2 (Misc Panel) 257.0H, POC pCO2 (Misc Panel) 51.1H, POC HCO3 (Misc Panel) 27.7H, POC Glucose (Misc Panel) 88, POC Sodium (Misc Panel) 136, POC Potassium (Misc Panel) 4.1, POC Total CO2 (Misc Panel) 29.0H, POC Ionized Calcium (Misc Panel) 4.7, POC Hemoglobin (Calculated)(Misc) 9.5L, POC Hematocrit (Misc Panel) 28.0L 02/27/19 14:24: Bedside Glucose (Misc Panel) 143H 02/27/19 17:00: Bedside Glucose (Misc Panel) 104 02/27/19 17:49: Nucleated Red Blood Cells % (auto) 0.0, Anion Gap 7L, Glomerular Filtration Rate 9.6L, Blood Urea Nitrogen 54H, Creatinine 4.70H, Sodium Level 139, Potassium Level 4.8, Chloride Level 104, Carbon Dioxide Level 28, Calcium Level 8.1L 02/27/19 18:42: Bedside Glucose (Misc Panel) 105 02/27/19 20:00: Bedside Glucose (Misc Panel) 112H 02/27/19 22:00: Bedside Glucose (Misc Panel) 81L 02/28/19 00:09: Bedside Glucose (Misc Panel) 78L 02/28/19 01:55: Bedside Glucose (Misc Panel) 80L 02/28/19 04:40: Bedside Glucose (Misc Panel) 78L 02/28/19 04:43: Nucleated Red Blood Cells % (auto) 0.0, Neutrophils 78H, Band Neutrophils 13H, Lymphocytes (Manual) 6L, Monocytes (Manual) 3, Platelet Estimate NORMAL, Hypochromasia 1+, Poikilocytosis 1+, Anisocytosis 1+, Macrocytosis 1+, Anion Gap 6L, Glomerular Filtration Rate 17.5L, Blood Urea Nitrogen 26#H, Creatinine 2 .80H, Sodium Level 141, Potassium Level 4.7, Chloride Level 110H, Carbon Dioxide Level 25, Calcium Level 7.8L 02/28/19 06:13: Bedside Glucose (Misc Panel) 70L 02/28/19 07:50: Bedside Glucose (Misc Panel) 78L CBC/BMP Laboratory Tests 02/27/19 17:49 Red Blood Count 3.14 L, Mean Corpuscular Volume 104.5 H, Mean Corpuscular Hemoglobin 32.2, Mean Corpuscular Hemoglobin Concent 30.8 L, Red Cell Distribution Width 17.7 H, Calcium Level 8.1 L 02/28/19 04:43 Red Blood Count 2.67 L, Mean Corpuscular Volume 101.5 H, Mean Corpuscular Hemoglobin 32.2, Mean Corpuscular Hemoglobin Concent 31.7 L, Red Cell Distribution Width 17.7 H, Calcium Level 7.8 L Microbiology Microbiology 02/27/19 Anaerobic Culture, Received Pending 02/27/19 Urine Culture - Final, Complete 02/27/19 Gram Stain - Final, Resulted 02/27/19 Abscess Culture, Resulted Pending Impression POD1 Ex Lap, Sigmoid colon resection, colostomy for perforation at sigmoid colon d/t diverticulitis/fecal impaction still with episodes of hypoglycemia though not symptomatic ESRD D/C a-Line Clear liquids today Dialysis per nephrology Continue to monitor BS OK to transfer to PCU OOB to chair, possibly ambulate incentive spirometers Eliquis on hold as of the moment lovenox for dvt prophylaxis for now Continue Invanz Plan / VTE VTE Prophylaxis Ordered?: Yes CARL TAPIA MD Feb 28, 2019 09:54
[2019-02-28] MEDS: SENOKOT S TAB PO SCH ×2 (11:40→20:44)
[2019-02-28] MEDS: MOM 30ML SUSPENSION UDC PO SCH (11:40)
[2019-02-28] MEDS: D10W/0.45% SODIUM CHLORIDE 1,000 ML IV SCH (12:55)
--- NOTE | 2019-02-28 13:44 | IPNPDOC ---
Subjective Date Seen The patient was seen on 02/28/19. Subjective Chief Complaint/HPI Patient seen and examined at the bedside. Reports that her abdominal pain is well controlled with current regimen. Denies any other acute complaints at this time. The patient has remained hemodynamically stable overnight. Objective Physical Examination General Exam: Positive: Alert, Cooperative, No Acute Distress ENT Exam: Positive: Atraumatic, Mucous membr. moist/pink Neck Exam: Negative: JVD Chest Exam: Positive: Clear to auscultation, Normal air movement Heart Exam: Positive: Rate Normal, Normal S1, Normal S2 Abdomen Exam: Positive: Soft, Other (Patient noted to have surgical dressing placed vertically across abdominal wall. Colostomy bag + in the LLQ) Extremity Exam: Negative: Tenderness, Swelling Psych Exam: Positive: Oriented x 3 Assessment /Plan Plan/VTE VTE Prophylaxis Ordered?: Yes Plan Perforation at Sigmoid Colon CT abd/pel notable for perforated viscus s/p Diagnostic Laparoscopy converted to Open Exploration with Sigmoid Colectomy and Colostomy Placement on 02/27 Cultures from the OR pending Patient on Invanz Patient ordered on a clear liquid diet as per Gen Surg Patient hemodynamically stable post-operatively--We will cont to monitor We will follow up Gen Surg recommendations Hypoglycemia The patient's blood glucose level has trended downward this AM We will increase dextrose composition in IVF to D10W at a judicious rate given the patient's history of requiring HD. We will cont to monitor the patient's fingerstick levels ESRD on HD Nephrology consulted, dialysis as per them Hx of DVT s/p IVC Filter Patient on Eliquis at baseline, this has been held 2/2 surgery To be continued as per Gen Surg HTN Cont Norvasc, Clonidine Dyslipidemia Continue statin GI prophylaxis Protonix IV DVT prophylaxis SCDs/TEDs, Restart Heparin SC on 03/01 VS, I&O, 24H, Fishbone Vital Signs/I&O Vital Signs Date Time Temp Pulse Resp B/P (MAP) Pulse Ox O2 Delivery O2 Flow Rate FiO2 02/28/19 12:00 2.0 02/28/19 10:00 88 119/57 (82) 98 02/28/19 08:00 98.9 13 02/27/19 11:27 Room Air I&O- Last 24 Hours up to 6 AM 02/28/19 05:59 Intake Total 2027 ml Output Total 505 ml Balance 1522 ml Laboratory Data 24H LABS Laboratory Tests 2 02/27/19 14:24: Bedside Glucose (Misc Panel) 143H 02/27/19 17:00: Bedside Glucose (Misc Panel) 104 02/27/19 17:49: Nucleated Red Blood Cells % (auto) 0.0, Anion Gap 7L, Glomerular Filtration Rate 9.6L, Blood Urea Nitrogen 54H, Creatinine 4.70H, Sodium Level 139, Potassium Level 4.8, Chloride Level 104, Carbon Dioxide Level 28, Calcium Level 8.1L 02/27/19 18:42: Bedside Glucose (Misc Panel) 105 02/27/19 20:00: Bedside Glucose (Misc Panel) 112H 02/27/19 22:00: Bedside Glucose (Misc Panel) 81L 02/28/19 00:09: Bedside Glucose (Misc Panel) 78L 02/28/19 01:55: Bedside Glucose (Misc Panel) 80L 02/28/19 04:40: Bedside Glucose (Misc Panel) 78L 02/28/19 04:43: Nucleated Red Blood Cells % (auto) 0.0, Neutrophils 78H, Band Neutrophils 13H, Lymphocytes (Manual) 6L, Monocytes (Manual) 3, Platelet Estimate NORMAL, Hypochromasia 1+, Poikilocytosis 1+, Anisocytosis 1+, Macrocytosis 1+, Anion Gap 6L, Glomerular Filtration Rate 17.5L, Blood Urea Nitrogen 26#H, Creatinine 2.80H, Sodium Level 141, Potassium Level 4.7, Chloride Level 110H, Carbon Dioxide Level 25, Calcium Level 7.8L 02/28/19 06:13: Bedside Glucose (Misc Panel) 70L 02/28/19 07:50: Bedside Glucose (Misc Panel) 78L 02/28/19 10:25: Bedside Glucose (Misc Panel) 116H 02/28/19 11:59: Bedside Glucose (Misc Panel) 63L 02/28/19 13:04: Bedside Glucose (Misc Panel) 174H CBC/BMP Laboratory Tests 02/27/19 17:49 Red Blood Count 3.14 L, Mean Corpuscular Volume 104.5 H, Mean Corpuscular Hemoglobin 32.2, Mean Corpuscular Hemoglobin Concent 30.8 L, Red Cell Distribution Width 17.7 H, Calcium Level 8.1 L 02/28/19 04:43 Red Blood Count 2.67 L, Mean Corpuscular Volume 101.5 H, Mean Corpuscular Hemoglobin 32.2, Mean Corpuscular Hemoglobin Concent 31.7 L, Red Cell Distribution Width 17.7 H, Calcium Level 7.8 L Microbiology Microbiology 02/27/19 Anaerobic Culture, Received Pending 02/27/19 Urine Culture - Final, Complete 02/27/19 Gram Stain - Final, Resulted 02/27/19 Abscess Culture, Resulted Pending DON DAVIS MD Feb 28, 2019 13:44
[2019-02-28] MEDS: ONDANSETRON 4MG/2ML VIAL (J2405) IV PRN ×2 (16:18→21:27)
[2019-02-28] MEDS: ERTAPENEM SODIUM 0.5 GM in NS 50 ML IV SCH (16:18)
[2019-02-28 20:01] LABS: HEMATOCRIT 26.4 % (36.0-47.0); HEMOGLOBIN 8.3 g/dl (12.0-15.5); MEAN CORPUSCULAR HEMOGLOBIN 32.7 pg (27.0-33.0); MEAN CORPUSCULAR HGB CONC 31.4 g/dl (32.0-36.5); MEAN CORPUSCULAR VOLUME 103.9 fl (80.0-96.0); PLATELET COUNT, AUTOMATED 196 10^3/uL (150-450); RED BLOOD COUNT 2.54 10^6/uL (4.00-5.40); WHITE BLOOD COUNT 7.3 10^3/uL (4.0-10.0)
[2019-02-28 20:29] LABS: ALBUMIN 1.7 GM/DL (3.2-5.2); BILIRUBIN,TOTAL 0.3 MG/DL (0.2-1.0); CALCIUM LEVEL 8.8 MG/DL (8.8-10.2); CREATININE FOR GFR 3.72 MG/DL (0.55-1.30); GLOMERULAR FILTRATION RATE 12.6 (>39); POTASSIUM SERUM 4.3 MEQ/L (3.5-5.1); TOTAL PROTEIN 4.9 GM/DL (6.4-8.2)
[2019-02-28] MEDS: DIVALPROEX 500MG *ER* TAB PO SCH (20:44)
[2019-02-28] MEDS: amLODIPine 5 MG TAB PO SCH (20:45)
[2019-02-28] MEDS: PERCOCET 5MG/325MG TAB PO PRN (21:27)
[2019-03-01] VITALS (17 sets, daily range): BP systolic 109–190; BP diastolic 56–86
[2019-03-01] MEDS: ONDANSETRON 4MG/2ML VIAL (J2405) IV PRN ×3 (04:37→17:23)
[2019-03-01 04:38] LABS: HEMATOCRIT 26.2 % (36.0-47.0); HEMOGLOBIN 8.1 g/dl (12.0-15.5); MEAN CORPUSCULAR HEMOGLOBIN 31.3 pg (27.0-33.0); MEAN CORPUSCULAR HGB CONC 30.9 g/dl (32.0-36.5); MEAN CORPUSCULAR VOLUME 101.2 fl (80.0-96.0); PLATELET COUNT, AUTOMATED 190 10^3/uL (150-450); RED BLOOD COUNT 2.59 10^6/uL (4.00-5.40); WHITE BLOOD COUNT 8.9 10^3/uL (4.0-10.0)
[2019-03-01] MEDS: PERCOCET 5MG/325MG TAB PO PRN ×4 (04:38→17:23)
[2019-03-01 05:00] LABS: CALCIUM LEVEL 8.5 MG/DL (8.8-10.2); CREATININE FOR GFR 4.01 MG/DL (0.55-1.30); GLOMERULAR FILTRATION RATE 11.6 (>39); PERCENT SATURATION 18.6 % (13.2-45.0); POTASSIUM SERUM 4.7 MEQ/L (3.5-5.1)
[2019-03-01 05:02] LABS: ALBUMIN 1.7 GM/DL (3.2-5.2); BILIRUBIN,TOTAL 0.4 MG/DL (0.2-1.0); CALCIUM LEVEL 8.7 MG/DL (8.8-10.2); CREATININE FOR GFR 4.05 MG/DL (0.55-1.30); GLOMERULAR FILTRATION RATE 11.5 (>39); POTASSIUM SERUM 4.6 MEQ/L (3.5-5.1); TOTAL PROTEIN 4.6 GM/DL (6.4-8.2)
[2019-03-01 05:11] LABS: ANISOCYTOSIS 1+; EOSINOPHILS 9 % (0-5); LYMPHOCYTES 14 % (16-52); MONOCYTES 4 % (0-8); MYELOCYTES 1 % (0-0); NEUTROPHILS 72 % (35-75); PLATELET ESTIMATE NORMAL (NORMAL)
--- NOTE | 2019-03-01 07:41 | IPNPDOC ---
Subjective General Date/Time Seen The patient was seen on 03/01/19 at 07:39. Subject Chief Complaint/History The patient is a 73-year-old female admitted with a reason for visit of Perforated Viscus. Remains hemodynamically stable. Nurse reports not drinking much orally. Blood glucose still on the low side . Ostomy not having any output yet. Current Medications Current Medications Current Medications Medications (Trade) Dose Ordered Sig/Katelyn Route PRN Reason Start Time Stop Time Status Last Admin Dose Admin Acetaminophen (Tylenol Tab) 650 mg Q4HP PRN PO MILD PAIN or TEMP > 101 02/27/19 14:15 Albuterol Sulfate (Proventil, Ventolin Hfa) 2 puff Q4H PRN INH SHORTNESS OF BREATH 02/27/19 14:15 Amlodipine Besylate (Norvasc) 5 mg QHS PO 02/27/19 21:00 02/28/19 20:45 Atorvastatin Calcium (Lipitor) 10 mg DAILY PO 02/28/19 09:00 02/28/19 08:48 Bisacodyl (Dulcolax Suppository) 10 mg DAILY RI 02/28/19 09:00 02/28/19 08:48 Clonidine HCl (Catapres) 0.1 mg TID PO 02/27/19 16:00 02/28/19 20:46 Dextrose (Dextrose 50%) 25 ml ASDIRECTED PRN IV SEE LABEL COMMENTS 02/27/19 14:15 Dextrose (Dextrose 50%) 50 ml STAT STAT IV 02/28/19 07:15 02/28/19 07:16 DC 02/28/19 08:48 Dextrose (Dextrose 50%) 50 ml STAT STAT IV 02/28/19 12:07 02/28/19 12:09 DC 02/28/19 12:33 Dextrose (Dextrose 50%) 50 ml STAT STAT IV 02/28/19 16:07 02/28/19 16:08 DC 02/28/19 17:52 Dextrose/Sodium Chloride 1,000 ml @ 30 mls/hr Q24H IV 02/27/19 15:00 02/27/19 16:00 DC Dextrose/Sodium Chloride 1,000 ml @ 30 mls/hr Q24H IV 02/28/19 14:00 02/28/19 12:55 Dextrose/Sodium Chloride 1,000 ml @ 50 mls/hr Q20H IV 02/27/19 15:45 02/28/19 11:44 DC 02/27/19 17:39 Dextrose/Sodium Chloride 1,000 ml @ 100 mls/hr Q10H IV 02/27/19 11:00 02/27/19 14:16 DC Dextrose/Sodium Chloride 1,000 ml @ 100 mls/hr Q10H IV 02/27/19 14:01 02/27/19 15:35 DC Dextrose/Sodium Chloride 1,000 ml @ 125 mls/hr Q8H IV 02/27/19 14:01 02/27/19 14:35 DC Diphenhydramine HCl (Benadryl Elixir) 12.5 mg Q6H PRN PO ITCHING 02/27/19 14:15 Divalproex Sodium (Depakote Er) 1,000 mg QHS PO 02/27/19 21:00 02/28/19 20:44 Enoxaparin Sodium (Lovenox) 30 mg DAILY SC 03/01/19 09:00 03/01/19 09:00 DC Enoxaparin Sodium (Lovenox) 30 mg DAILY SC 03/01/19 09:00 03/01/19 09:00 DC Ertapenem 0.5 gm/ Sodium Chloride 50 ml @ 100 mls/hr Q24H IV 02/28/19 16:00 02/28/19 16:18 Ertapenem 1 gm/ Sodium Chloride 50 ml @ 100 mls/hr Q24H IV 02/27/19 14:15 02/27/19 14:40 DC Fentanyl Citrate (Sublimaze) 25 mcg Q5MP PRN IV MODERATE PAIN (PS 4-7) 02/27/19 15:00 02/27/19 16:00 DC Glucagon (Glucagon) 1 mg ASDIRECTED PRN SC SEE LABEL COMMENTS 02/27/19 14:15 Glucose (Glucose) 16 GM ASDIRECTED PRN PO SEE LABEL COMMENTS 02/27/19 14:15 Heparin Sodium (Porcine) (Heparin) 5,000 units Q12H SQ 03/01/19 09:00 Home Med (Med Rec Complete!) ASDIRECTED XX 02/27/19 10:45 02/27/19 10:45 DC Hydromorphone HCl (Dilaudid) 0.2 mg Q5MP PRN IV MODERATE/SEVERE PAIN (PS 5-10) 02/27/19 15:00 02/27/19 16:00 DC 02/27/19 15:35 Insulin Human Lispro (HumaLOG INSULIN) SEE PROTOCOL TABLE QHS SC 02/27/19 21:00 02/27/19 21:00 DC Insulin Human Lispro (HumaLOG INSULIN) See Protocol Table AC SC 02/27/19 17:30 02/28/19 07:16 DC Magnesium Hydroxide (Milk Of Magnesia) 30 ml DAILY PO 02/28/19 09:00 02/28/19 11:40 Metoclopramide HCl (REGLAN INJection) 5 mg Q6HP PRN IV NAUSEA OR VOMITING 02/27/19 15:00 02/27/19 16:00 DC 02/27/19 14:50 Morphine Sulfate (Morphine Sulfate Inj) 4 mg Q3HP PRN IV SEVERE PAIN (PS 8-10) 02/27/19 14:15 Ondansetron HCl (ZOFRAN INJection) 4 mg Q4HP PRN IV NAUSEA OR VOMITING 02/27/19 15:00 02/27/19 16:00 DC Ondansetron HCl (ZOFRAN INJection) 4 mg Q6HP PRN IV NAUSEA OR VOMITING 02/27/19 14:15 03/01/19 04:37 Oxycodone/ Acetaminophen (Percocet 5mg/ 325mg Tablet) 1 tab Q4HP PRN PO MODERATE PAIN (PS 5-7) 02/27/19 14:15 03/01/19 04:38 Oxycodone/ Acetaminophen (Percocet 5mg/ 325mg Tablet) 2 tab Q6HP PRN PO SEVERE PAIN (PS 8-10) 02/27/19 14:15 Pantoprazole Sodium (Protonix) 40 mg DAILY IV 02/27/19 09:00 02/28/19 08:48 Promethazine HCl (PHENERGAN INJection) 25 mg Q6HP PRN IV NAUSEA 02/27/19 19:45 02/28/19 00:18 DC 02/27/19 19:58 Senna/Docusate Sodium (Senokot S) 1 tab BID PO 02/28/19 09:00 02/28/19 20:44 Allergies Coded Allergies: Penicillins (Verified Allergy, Intermediate, RASH, 02/27/19) ciprofloxacin (Verified Adverse Reaction, Mild, NV, 02/27/19) Objective Physical Examination Examination GENERAL APPEARANCE:relatively comfortable. SKIN: warm and dry.. HEENT: mild pale palpebral conjunctivae. NECK: Supple, no thyromegaly. No obvious jugular venous distention. LUNGS: Clear to auscultation bilaterally. No wheezing appreciated. slight shallow resp. efforts. HEART: No chest wall abnormalities. Regular rate and rhythm with no murmurs appreciated. ABDOMEN: Abdomen is round, soft, looks more distended/prominent than yesterday. Hypoactive BS. Dressings removed. Midline incision C/D/I. Telfa lexy removed . mild tenderness around incision sites.. EXTREMITIES: no edema. Vital Signs Vital Signs Date Time Temp Pulse Resp B/P (MAP) Pulse Ox O2 Delivery O2 Flow Rate FiO2 03/01/19 06:00 58 15 122/68 (86) 99 03/01/19 05:08 2.0 03/01/19 04:00 97.2 02/27/19 11:27 Room Air I&Os I&O- Last 24 Hours up to 6 AM 03/01/19 06:00 Intake Total 1350 ml Output Total 75 ml Balance 1275 ml Laboratory Data Labs 24H Laboratory Tests 2 02/28/19 07:50: Bedside Glucose (Misc Panel) 78L 02/28/19 10:25: Bedside Glucose (Misc Panel) 116H 02/28/19 11:59: Bedside Glucose (Misc Panel) 63L 02/28/19 13:04: Bedside Glucose (Misc Panel) 174H 02/28/19 14:03: Bedside Glucose (Misc Panel) 133H 02/28/19 15:46: Bedside Glucose (Misc Panel) 93 02/28/19 16:55: Bedside Glucose (Misc Panel) 89 02/28/19 17:48: Bedside Glucose (Misc Panel) 78L 02/28/19 19:36: Bedside Glucose (Misc Panel) 129H 02/28/19 19:53: Nucleated Red Blood Cells % (auto) 0.0, Anion Gap 5L, Glomerular Filtration Rate 12.6L, Blood Urea Nitrogen 34H, Creatinine 3.72H, Sodium Level 139, Potassium Level 4.3, Chloride Level 109H, Carbon Dioxide Level 25, Calcium Level 8.8, Aspartate Amino Transf (AST/SGOT) 30, Alanine Aminotransferase (ALT/SGPT) 20, Alkaline Phosphatase 66, Total Bilirubin 0.3#, Total Protein 4.9L, Albumin 1.7#L, Albumin/Globulin Ratio 0.53L, Lipase 113 02/28/19 21:26: Bedside Glucose (Misc Panel) 80L 02/28/19 23:19: Bedside Glucose (Misc Panel) 76L 03/01/19 01:04: Bedside Glucose (Misc Panel) 75L 03/01/19 02:13: Bedside Glucose (Misc Panel) 84 03/01/19 04:16: Nucleated Red Blood Cells % (auto) 0.0, Neutrophils 72, Lymphocytes (Manual) 14L, Monocytes (Manual) 4, Eosinophils (Manual) 9H, Myelocytes 1H, Platelet Estimate NORMAL, Anisocytosis 1+, Anion Gap 8, Glomerular Filtration Rate 11.5L, Blood Urea Nitrogen 37H, Creatinine 4.05H, Sodium Level 139, Potassium Level 4.6, Chloride Level 108H, Carbon Dioxide Level 23, Calcium Level 8.7L, Aspartate Amino Transf (AST/SGOT) 22, Alanine Aminotransferase (ALT/SGPT) 19, Alkaline Phosphatase 86, Total Bilirubin 0.4, Total Protein 4.6L, Albumin 1.7L, Iron Level 16L, Total Iron Binding Capacity 86L, Transferrin % Saturation 18.6, Albumin/Globulin Ratio 0.59L, Lipase 119 03/01/19 04:19: Bedside Glucose (Misc Panel) 81L 03/01/19 06:06: Bedside Glucose (Misc Panel) 83 CBC/BMP Laboratory Tests 02/28/19 19:53 Red Blood Count 2.54 L, Mean Corpuscular Volume 103.9 H, Mean Corpuscular Hemoglobin 32.7, Mean Corpuscular Hemoglobin Concent 31.4 L, Red Cell Distribution Width 17.5 H, Calcium Level 8.8, Aspartate Amino Transf (AST/SGOT) 30, Alanine Aminotransferase (ALT/SGPT) 20, Alkaline Phosphatase 66, Total Bili castillo 0.3 #, Total Protein 4.9 L, Albumin 1.7 #L 03/01/19 04:16 Red Blood Count 2.59 L, Mean Corpuscular Volume 101.2 H, Mean Corpuscular Hemoglobin 31.3, Mean Corpuscular Hemoglobin Concent 30.9 L, Red Cell Distribution Width 17.6 H, Calcium Level 8.7 L, Aspartate Amino Transf (AST/SGOT) 22, Alanine Aminotransferase (ALT/SGPT) 19, Alkaline Phosphatase 86, Total Bilirubin 0.4, Total Protein 4.6 L, Albumin 1.7 L Microbiology Microbiology 02/27/19 Anaerobic Culture, Received Pending 02/27/19 Urine Culture - Final, Complete 02/27/19 Gram Stain - Final, Resulted 02/27/19 Abscess Culture, Resulted Pending Impression POD2 Ex Lap, Sigmoid colon resection, colostomy for perforation at sigmoid colon d/t diverticulitis/fecal impaction still with episodes of hypoglycemia though not symptomatic ESRD anemia multifactorial constipation/fecal impaction hypoglycemia full liquids today Dialysis per nephrology Continue to monitor BS OK to transfer to PCU OOB to chair, possibly ambulate incentive spirometers Eliquis on hold as of the moment lovenox for dvt prophylaxis for now Continue Invanz PICC line placement - difficult peripheral access, Plan / VTE VTE Prophylaxis Ordered?: Yes CARL TAPIA MD Mar 01, 2019 07:41
[2019-03-01] MEDS: BISACODYL 10 MG SUPP PR SCH (08:03)
[2019-03-01] MEDS: MOM 30ML SUSPENSION UDC PO SCH (08:03)
[2019-03-01] MEDS: ATORVASTATIN 10 MG TAB PO SCH (08:03)
[2019-03-01] MEDS: HEPARIN SOD (PORCINE) 5000 UNITS/ML VIAL SQ SCH ×2 (08:03→20:05)
[2019-03-01] MEDS: PANTOPRAZOLE 40MG INJ (PROTONIX) (C9113) IV SCH (08:03)
[2019-03-01] MEDS: SENOKOT S TAB PO SCH ×2 (08:04→20:08)
[2019-03-01] MEDS: cloNIDine 0.1 MG TAB PO SCH ×3 (08:04→20:07)
[2019-03-01] MEDS ORDERED: ENOXAPARIN 30 MG/0.3 ML SYR (J1650) SC SCH ×2 (09:00)
[2019-03-01] MEDS: MORPHINE 4 MG/ML 1ML VIAL/SYRINGE (J2270) IV PRN (09:16)
--- NOTE | 2019-03-01 10:44 | IPNPDOC ---
Subjective Date Seen The patient was seen on 03/01/19. Subjective Chief Complaint/HPI Patient seen and examined at the bedside this morning. She was noted to be seated in a chair. States that her pain is relatively well controlled at this time. No acute overnight events noted. Objective Physical Examination General Exam: Positive: Alert, Cooperative, No Acute Distress ENT Exam: Positive: Atraumatic, Mucous membr. moist/pink Neck Exam: Negative: JVD Chest Exam: Positive: Clear to auscultation, Normal air movement Heart Exam: Positive: Rate Normal, Normal S1, Normal S2 Abdomen Exam: Positive: Soft, Other (Patient noted to have surgical dressing placed vertically across abdominal wall. Colostomy bag + in the LLQ) Extremity Exam: Negative: Tenderness, Swelling Psych Exam: Positive: Oriented x 3 Assessment /Plan Plan/VTE VTE Prophylaxis Ordered?: Yes Plan Perforation at Sigmoid Colon CT abd/pel notable for perforated viscus s/p Diagnostic Laparoscopy converted to Open Exploration with Sigmoid Colectomy and Colostomy Placement on 02/27 Cultures from the OR pending Patient on Invanz Patient advanced to a full liquid diet as per Gen Surg Patient hemodynamically stable post-operatively--We will cont to monitor We will follow up Gen Surg recommendations Hypoglycemia Cont IVF with D10W at a judicious rate given the patient's history of requiring HD. PO intake encouraged We will cont to monitor the patient's fingerstick levels ESRD on HD Nephrology consulted, dialysis as per them Hx of DVT s/p IVC Filter Patient on Eliquis at baseline, this has been held 2/2 surgery To be continued as per Gen Surg HTN Cont Norvasc, Clonidine Dyslipidemia Continue statin GI prophylaxis Protonix IV DVT prophylaxis Heparin SC Disposition-pending continued clinical improvement. Physical therapy ordered for functional optimization. VS, I&O, 24H, Fishbone Vital Signs/I&O Vital Signs Date Time Temp Pulse Resp B/P (MAP) Pulse Ox O2 Delivery O2 Flow Rate FiO2 03/01/19 09:26 12 2.0 03/01/19 08:04 145/70 03/01/19 06:00 58 99 03/01/19 04:00 97.2 02/27/19 11:27 Room Air I&O- Last 24 Hours up to 6 AM 03/01/19 05:59 Intake Total 1330 ml Output Total 115 ml Balance 1215 ml Laboratory Data 24H LABS Laboratory Tests 2 02/28/19 11:59: Bedside Glucose (Misc Panel) 63L 02/28/19 13:04: Bedside Glucose (Misc Panel) 174H 02/28/19 14:03: Bedside Glucose (Misc Panel) 133H 02/28/19 15:46: Bedside Glucose (Misc Panel) 93 02/28/19 16:55: Bedside Glucose (Misc Panel) 89 02/28/19 17:48: Bedside Glucose (Misc Panel) 78L 02/28/19 19:36: Bedside Glucose (Misc Panel) 129H 02/28/19 19:53: Nucleated Red Blood Cells % (auto) 0.0, Anion Gap 5L, Glomerular Filtration Rate 12.6L, Blood Urea Nitrogen 34H, Creatinine 3.72H, Sodium Level 139, Potassium Level 4.3, Chloride Level 109H, Carbon Dioxide Level 25, Calcium Level 8.8, Aspartate Amino Transf (AST/SGOT) 30, Alanine Aminotransferase (ALT/SGPT) 20, Alkaline Phosphatase 66, Total Bilirubin 0.3#, Total Protein 4.9L, Albumin 1.7#L, Albumin/Globulin Ratio 0.53L, Lipase 113 02/28/19 21:26: Bedside Glucose (Misc Panel) 80L 02/28/19 23:19: Bedside Glucose (Misc Panel) 76L 03/01/19 01:04: Bedside Glucose (Misc Panel) 75L 03/01/19 02:13: Bedside Glucose (Misc Panel) 84 03/01/19 04:16: Nucleated Red Blood Cells % (auto) 0.0, Neutrophils 72, Lymphocytes (Manual) 14L, Monocytes (Manual) 4, Eosinophils (Manual) 9H, Myelocytes 1H, Platelet Estimate NORMAL, Anisocytosis 1+, Anion Gap 8, Glomerular Filtration Rate 11.5L, Blood Urea Nitrogen 37H, Creatinine 4.05H, Sodium Level 139, Potassium Level 4.6, Chloride Level 108H, Carbon Dioxide Level 23, Calcium Level 8.7L, Aspartate Amino Transf (AST/SGOT) 22, Alanine Aminotransferase (ALT/SGPT) 19, Alkaline Phosphatase 86, Total Bilirubin 0.4, Total Protein 4.6L, Albumin 1.7L, Iron Level 16L, Total Iron Binding Capacity 86L, Transferrin % Saturation 18.6, Albumin/Globulin Ratio 0.59L, Lipase 119 8/12/19 04:19: Bedside Glucose (Misc Panel) 81L 03/01/19 06:06: Bedside Glucose (Misc Panel) 83 03/01/19 07:42: Bedside Glucose (Misc Panel) 82L 03/01/19 10:10: Bedside Glucose (Misc Panel) 78L CBC/BMP Laboratory Tests 02/28/19 19:53 Red Blood Count 2.54 L, Mean Corpuscular Volume 103.9 H, Mean Corpuscular Hemoglobin 32.7, Mean Corpuscular Hemoglobin Concent 31.4 L, Red Cell Distribution Width 17.5 H, Calcium Level 8.8, Aspartate Amino Transf (AST/SGOT) 30, Alanine Aminotransferase (ALT/SGPT) 20, Alkaline Phosphatase 66, Total B ilirubin 0.3 #, Total Protein 4.9 L, Albumin 1.7 #L 03/01/19 04:16 Red Blood Count 2.59 L, Mean Corpuscular Volume 101.2 H, Mean Corpuscular Hemoglobin 31.3, Mean Corpuscular Hemoglobin Concent 30.9 L, Red Cell Distribution Width 17.6 H, Calcium Level 8.7 L, Aspartate Amino Transf (AST/SGOT) 22, Alanine Aminotransferase (ALT/SGPT) 19, Alkaline Phosphatase 86, Total Bilirubin 0.4, Total Protein 4.6 L, Albumin 1.7 L Microbiology Microbiology 02/27/19 Anaerobic Culture, Received Pending 02/27/19 Urine Culture - Final, Complete 02/27/19 Gram Stain - Final, Resulted 02/27/19 Abscess Culture, Resulted Pending DON DAVIS MD Mar 01, 2019 10:44
[2019-03-01] MEDS: D10W/0.45% SODIUM CHLORIDE 1,000 ML IV SCH (14:22)
[2019-03-01] MEDS: ERTAPENEM SODIUM 0.5 GM in NS 50 ML IV SCH (16:02)
[2019-03-01] MEDS: amLODIPine 5 MG TAB PO SCH (20:07)
[2019-03-01] MEDS: DIVALPROEX 500MG *ER* TAB PO SCH (20:07)
--- NOTE | 2019-03-01 20:36 | IPN ---
DATE: 02/28/2019 Mrs. Teague is seen this morning on her bedside. Daughter is present on her bedside and reports that the patient does get confused at times. She was admitted with perforated viscus and found to have fecal impaction and a perforated diverticulum for which she underwent exploratory laparotomy and colostomy yesterday. She was dialyzed after her surgery. She did tolerate her dialysis treatment very well. She has recurrent hypoglycemia and daughter is concerned about it. The patient has been relatively asymptomatic. PHYSICAL EXAMINATION: Temperature 98 degrees Fahrenheit, heart rate 90 per minute and respiratory rate 14 per minute. Blood pressure 116/60 mmHg and oxygen saturation 98% on 2 liters oxygen. Head is atraumatic. Internal jugular vein catheter on right side is present without any signs of infection. Oral mucosa somewhat dry. Heart sounds are regular and lungs clear to auscultation. Abdomen is soft and SABINA drain is present in right lower quadrant. Colostomy is present in left lower quadrant. Bowel sounds are absent. Extremities have no cyanosis or clubbing. Neurologically she is awake and able to answer simple questions. Today's labs show a sodium level 141, potassium 4.7, CO2 25, BUN 26 and creatinine 2.8. Calcium level 7.8. WBC count 7.4, hemoglobin 8.6 and hematocrit 27.1. Platelets 202. PROBLEMS: 1. End-stage renal disease. The patient was dialyzed yesterday and her next dialysis will be due on Friday. At present there is no emergent need for dialysis today. 2. Hyperkalemia. She did have mild hyperkalemia on admission and she was dialyzed yesterday and now her potassium level is 4.7. She does not have any oral intake as yet. We do not anticipate recurrence of hyperkalemia at present. 3. Anemia. Her anemia did get worse following surgery. We will check her iron studies and give her a dose of Aranesp with next dialysis treatment. There is no emergent need for transfusion. 4. Hypertension. Blood pressure seems well controlled and she will continue with her current chronic antihypertensive medications.
[2019-03-02] VITALS (14 sets, daily range): BP systolic 86–156; BP diastolic 51–72
--- NOTE | 2019-03-02 00:26 | IPN ---
DATE: 03/01/2019 Mrs. Teague is seen this morning on her bedside. She is feeling about the same. She remains on IV fluids due to recurrent hypotension. She has no fever or chills. PHYSICAL EXAMINATION: Temperature 97 degrees Fahrenheit, heart rate 78 per minute and respiratory rate 16 per minute. Blood pressure 128/60 mmHg and oxygen saturation 98%. Head is atraumatic. Neck is supple and jugular venous distention (JVD) is not elevated. Internal jugular vein catheter on right side is present for dialysis. Heart sounds are regular and lungs clear to auscultation. Abdomen is soft and colostomy is present in left lower quadrant. A Sahil-Amor (SABINA) drain is present in the right lower quadrant. Neurologically, she is at her baseline mentation. Today's labs show WBC count 8.9, hemoglobin 8.1 and hematocrit 26.2. Sodium 139, potassium 4.6, CO2 of 23, BUN 37 and creatinine 4.05. Calcium 8.7. PROBLEM #1: End-stage renal disease. The patient was dialyzed Friday and her next dialysis will be scheduled for tomorrow. There is no emergent indication for dialysis today. PROBLEM #2: Anemia. Her anemia is gradually worsening, and we may have to consider transfusion during her next dialysis. CBC will be checked again tomorrow. PROBLEM #3: Recurrent hypoglycemia. The patient remains on IV fluid at 30 mL per hour due to recurrent hypoglycemia. She is not receiving any medications for diabetes. PROBLEM #4: Perforated viscus, status post sigmoid resection and colostomy. The patient is being followed by surgery and remains on antibiotics. She is currently afebrile and has been hemodynamically stable.
[2019-03-02] MEDS: ONDANSETRON 4MG/2ML VIAL (J2405) IV PRN ×3 (00:52→20:30)
[2019-03-02] MEDS: PERCOCET 5MG/325MG TAB PO PRN ×2 (00:53→09:30)
[2019-03-02] MEDS: MORPHINE 4 MG/ML 1ML VIAL/SYRINGE (J2270) IV PRN ×2 (04:33→20:31)
[2019-03-02 04:47] LABS: BASO % 0.4 % (0.0-1.0); EOS # 0.7 10^3/uL (0.0-0.50); EOS % 7.3 % (0.0-3.0); HEMOGLOBIN 8.5 g/dl (12.0-15.5); LYMPH # 0.9 10^3/uL (1.5-4.5); LYMPH % 9.4 % (24.0-44.0); MEAN CORPUSCULAR HEMOGLOBIN 32.9 pg (27.0-33.0); MEAN CORPUSCULAR HGB CONC 31.5 g/dl (32.0-36.5); MEAN CORPUSCULAR VOLUME 104.7 fl (80.0-96.0); MONO # 0.9 10^3/uL (0.0-0.8); MONO % 9.2 % (0.0-5.0); NEUTROPHILS # 6.9 10^3/uL (1.8-7.7); NEUTROPHILS % 73.3 % (36.0-66.0); PLATELET COUNT, AUTOMATED 193 10^3/uL (150-450); RED BLOOD COUNT 2.58 10^6/uL (4.00-5.40); WHITE BLOOD COUNT 9.5 10^3/uL (4.0-10.0)
[2019-03-02 05:02] LABS: CALCIUM LEVEL 8.8 MG/DL (8.8-10.2); CREATININE FOR GFR 4.89 MG/DL (0.55-1.30); GLOMERULAR FILTRATION RATE 9.2 (>39); POTASSIUM SERUM 4.4 MEQ/L (3.5-5.1)
--- NOTE | 2019-03-02 08:51 | IPNPDOC ---
Text Note Date of Service The patient was seen on 03/02/19. NOTE S: patient feeling weak and dizzy today. no CP, no SOB. Sitting in chair and leaning to right. Denies parathesia. States generalized weakness. no stool yet. Case discussed with Dr March. Patient for dialysis today per nursing staff. O: Vitals as below General: pleasant Weak, NAD sitting in chair and leaning to right HRRR no murmur LCTA no W/R/R HEENT: speech clear, no deviated tongue or smile. facial muscles symmetrical; Weak neck muscles and wants pills to support head while sitting in chair Ext: no edema Abdomen exam : per surgery, no bowel sound audible, tender RLQ A/P: 1) Perforation at Sigmoid Colon CT abd/pel notable for perforated viscus s/p Diagnostic Laparoscopy converted to Open Exploration with Sigmoid Colectomy and Colostomy Placement on 02/27 Cultures from the OR pending Patient on Invanz Patient advanced to a full liquid diet as per Gen Surg Patient hemodynamically stable post-operatively--We will cont to monitor We will follow up Gen Surg recommendations 2) Hypoglycemia - stable and ranging 70-87 Cont IVF with D10W at a judicious rate given the patient's history of requiring HD. PO intake encouraged We will cont to monitor the patient's fingerstick levels 3) ESRD on HD Nephrology consulted, dialysis as per them 4) Hx of DVT s/p IVC Filter Patient on Eliquis at baseline, this has been held 2/2 surgery discussed with surgery and if CT head negative, okay to restart eliquis 5) weakness and right side leaning - check CT head ; transfuse 1 unit pRBC with dialysis 6) HTN Cont Norvasc, Clonidine 7) Dyslipidemia Continue statin 8) GI prophylaxis Protonix IV 10) DVT prophylaxis Heparin SC - once elqiuis is restarted will d/c heparin Disposition-pending continued clinical improvement. Physical therapy ordered for functional optimization. VS,Fishbone, I+O VS, Fishbone, I+O Laboratory Tests 03/02/19 04:10 Red Blood Count 2.58 L, Mean Corpuscular Volume 104.7 H, Mean Corpuscular Hemoglobin 32.9, Mean Corpuscular Hemoglobin Concent 31.5 L, Red Cell Distribution Width 17.1 H, Neutrophils (%) (Auto) 73.3 H, Lymphocytes (%) (Auto) 9.4 L, Monocytes (%) (Auto) 9.2 H, Eosinophils (%) (Auto) 7.3 H, Basophils (%) (Auto) 0.4, Neutrophils # (Auto) 6.9, Lymphocytes # (Auto) 0.9 L, Monocytes # (Auto) 0.9 H, Eosinophils # (Auto) 0.7 H, Basophils # (Auto) 0.0, Calcium Level 8.8 Vital Signs Date Time Temp Pulse Resp B/P (MAP) Pulse Ox O2 Delivery O2 Flow Rate FiO2 03/02/19 06:00 81 116/59 (78) 98 2.0 03/02/19 04:43 18 03/02/19 04:00 98.2 02/27/19 11:27 Room Air I&O- Last 24 Hours up to 6 AM 03/02/19 05:59 Intake Total 1365 ml Output Total 50 ml Balance 1315 ml RAYO RUSH DO Mar 02, 2019 07:56
--- NOTE | 2019-03-02 09:24 | REP ---
CT BRAIN WITHOUT CONTRAST: HISTORY: Rule out CVA. No comparison study. FINDINGS: Preliminary digital shipping services sales representative radiograph is unremarkable. Bone window settings demonstrate an intact bony calvarium. Vascular calcification is noted in the carotid siphons. The visualized paranasal sinuses are intact. No intraorbital abnormality is seen. On soft tissue window settings, there is diffuse moderate atrophy. There are periventricular low density areas in the frontal lobes bilaterally consistent with small vessel atherosclerotic change. There is no evidence of hemorrhage, acute infarction, mass, extra-axial fluid collection, or midline shift. IMPRESSION: Diffuse atrophy, vascular calcification, small vessel atherosclerotic changes. No acute intracranial abnormality. Electronically Signed by Mulugeta Seo MD 03/02/2019 07:29 P
[2019-03-02] MEDS: HEPARIN SOD (PORCINE) 5000 UNITS/ML VIAL SQ SCH (09:28)
[2019-03-02] MEDS: PANTOPRAZOLE 40MG INJ (PROTONIX) (C9113) IV SCH (09:28)
[2019-03-02] MEDS: MOM 30ML SUSPENSION UDC PO SCH (09:31)
[2019-03-02] MEDS: ATORVASTATIN 10 MG TAB PO SCH (09:31)
[2019-03-02] MEDS: cloNIDine 0.1 MG TAB PO SCH ×3 (09:31→20:33)
[2019-03-02] MEDS: SENOKOT S TAB PO SCH ×2 (09:31→20:31)
[2019-03-02] MEDS ORDERED: HEPARIN 1,000 UNITS/ML 10ML VIAL (FOR RADIOLOGY& DIALYSIS ONLY) XX ONE (11:45)
[2019-03-02] MEDS: BISACODYL 10 MG SUPP PR SCH (13:07)
[2019-03-02] MEDS: D10W/0.45% SODIUM CHLORIDE 1,000 ML IV SCH (14:00)
--- NOTE | 2019-03-02 14:53 | IPNPDOC ---
Subjective General Date/Time Seen The patient was seen on 03/02/19 at 14:46. Subject Chief Complaint/History The patient is a 73-year-old female admitted with a reason for visit of Perforated Viscus. Patient seen sitting up on the chair. Her nurse notices that she lists towards the right side she sits up. She needs to person assist to get out of the bed. Poor oral intake. Still no output yet from her colostomy. She denies any nausea that she complains of abdominal discomfort from the incision. He has been hemodynamically stable, afebrile. We were not able to get a PICC line on her yesterday. Current Medications Current Medications Current Medications Medications (Trade) Dose Ordered Sig/Katelyn Route PRN Reason Start Time Stop Time Status Last Admin Dose Admin Acetaminophen (Tylenol Tab) 650 mg Q4HP PRN PO MILD PAIN or TEMP > 101 02/27/19 14:15 Albuterol Sulfate (Proventil, Ventolin Hfa) 2 puff Q4H PRN INH SHORTNESS OF BREATH 02/27/19 14:15 Amino Ac/Electrol/ Dextrose/Calcium 2,000 ml @ 60 mls/hr ONCE@1800 IV 03/02/19 18:00 03/03/19 17:59 Amlodipine Besylate (Norvasc) 5 mg QHS PO 02/27/19 21:00 03/01/19 20:07 Apixaban (Eliquis) 2.5 mg BID PO 03/02/19 21:00 Atorvastatin Calcium (Lipitor) 10 mg DAILY PO 02/28/19 09:00 03/02/19 09:31 Bisacodyl (Dulcolax Suppository) 10 mg DAILY IN 02/28/19 09:00 03/02/19 13:07 Clonidine HCl (Catapres) 0.1 mg TID PO 02/27/19 16:00 03/02/19 09:31 Dextrose (Dextrose 50%) 25 ml ASDIRECTED PRN IV SEE LABEL COMMENTS 02/27/19 14:15 Dextrose (Dextrose 50%) 50 ml STAT STAT IV 02/28/19 07:15 02/28/19 07:16 DC 02/28/19 08:48 Dextrose (Dextrose 50%) 50 ml STAT STAT IV 02/28/19 12:07 02/28/19 12:09 DC 02/28/19 12:33 Dextrose (Dextrose 50%) 50 ml STAT STAT IV 02/28/19 16:07 02/28/19 16:08 DC 02/28/19 17:52 Dextrose/Sodium Chloride 1,000 ml @ 30 mls/hr Q24H IV 02/27/19 15:00 02/27/19 16:00 DC Dextrose/Sodium Chloride 1,000 ml @ 30 mls/hr Q24H IV 02/28/19 14:00 03/02/19 17:59 03/01/19 14:22 Dextrose/Sodium Chloride 1,000 ml @ 50 mls/hr Q20H IV 02/27/19 15:45 02/28/19 11:44 DC 02/27/19 17:39 Dextrose/Sodium Chloride 1,000 ml @ 100 mls/hr Q10H IV 02/27/19 11:00 02/27/19 14:16 DC Dextrose/Sodium Chloride 1,000 ml @ 100 mls/hr Q10H IV 02/27/19 14:01 02/27/19 15:35 DC Dextrose/Sodium Chloride 1,000 ml @ 125 mls/hr Q8H IV 02/27/19 14:01 02/27/19 14:35 DC Diphenhydramine HCl (Benadryl Elixir) 12.5 mg Q6H PRN PO ITCHING 02/27/19 14:15 Divalproex Sodium (Depakote Er) 1,000 mg QHS PO 02/27/19 21:00 03/01/19 20:07 Enoxaparin Sodium (Lovenox) 30 mg DAILY SC 03/01/19 09:00 03/01/19 09:00 DC Enoxaparin Sodium (Lovenox) 30 mg DAILY SC 03/01/19 09:00 03/01/19 09:00 DC Ertapenem 0.5 gm/ Sodium Chloride 50 ml @ 100 mls/hr Q24H IV 02/28/19 16:00 03/01/19 16:02 Ertapenem 1 gm/ Sodium Chloride 50 ml @ 100 mls/hr Q24H IV 02/27/19 14:15 02/27/19 14:40 DC Fat Emulsion Intravenous 500 ml @ 20 mls/hr ONCE@1800 IV 03/02/19 18:00 03/03/19 17:59 Fentanyl Citrate (Sublimaze) 25 mcg Q5MP PRN IV MODERATE PAIN (PS 4-7) 02/27/19 15:00 02/27/19 16:00 DC Glucagon (Glucagon) 1 mg ASDIRECTED PRN SC SEE LABEL COMMENTS 02/27/19 14:15 Glucose (Glucose) 16 GM ASDIRECTED PRN PO SEE LABEL COMMENTS 02/27/19 14:15 Heparin Sodium (Porcine) (Heparin) 5,000 units Q12H SQ 03/01/19 09:00 03/02/19 10:30 DC 03/02/19 09:28 Home Med (Med Rec Complete!) ASDIRECTED XX 02/27/19 10:45 02/27/19 10:45 DC Hydromorphone HCl (Dilaudid) 0.2 mg Q5MP PRN IV MODERATE/SEVERE PAIN (PS 5-10) 02/27/19 15:00 02/27/19 16:00 DC 02/27/19 15:35 Insulin Human Lispro (HumaLOG INSULIN) SEE PROTOCOL TABLE QHS SC 02/27/19 21:00 02/27/19 21:00 DC Insulin Human Lispro (HumaLOG INSULIN) See Protocol Table AC SC 02/27/19 17:30 02/28/19 07:16 DC Magnesium Hydroxide (Milk Of Magnesia) 30 ml DAILY PO 02/28/19 09:00 03/02/19 09:31 Metoclopramide HCl (REGLAN INJection) 5 mg Q6HP PRN IV NAUSEA OR VOMITING 02/27/19 15:00 02/27/19 16:00 DC 02/27/19 14:50 Morphine Sulfate (Morphine Sulfate Inj) 4 mg Q3HP PRN IV SEVERE PAIN (PS 8-10) 02/27/19 14:15 03/02/19 04:33 Ondansetron HCl (ZOFRAN INJection) 4 mg Q4HP PRN IV NAUSEA OR VOMITING 02/27/19 15:00 02/27/19 16:00 DC Ondansetron HCl (ZOFRAN INJection) 4 mg Q6HP PRN IV NAUSEA OR VOMITING 02/27/19 14:15 03/02/19 12:58 Oxycodone/ Acetaminophen (Percocet 5mg/ 325mg Tablet) 1 tab Q4HP PRN PO MODERATE PAIN (PS 5-7) 02/27/19 14:15 03/01/19 17:23 Oxycodone/ Acetaminophen (Percocet 5mg/ 325mg Tablet) 2 tab Q6HP PRN PO SEVERE PAIN (PS 8-10) 02/27/19 14:15 03/02/19 09:30 Pantoprazole Sodium (Protonix) 40 mg DAILY IV 02/27/19 09:00 03/02/19 09:28 Promethazine HCl (PHENERGAN INJection) 25 mg Q6HP PRN IV NAUSEA 02/27/19 19:45 02/28/19 00:18 DC 02/27/19 19:58 Senna/Docusate Sodium (Senokot S) 1 tab BID PO 02/28/19 09:00 03/02/19 09:31 Allergies Coded Allergies: Penicillins (Verified Allergy, Intermediate, RASH, 02/27/19) ciprofloxacin (Verified Adverse Reaction, Mild, NV, 02/27/19) Objective Physical Examination Examination GENERAL APPEARANCE: Relatively comfortable. SKIN: Warm and dry, pale appearance HEENT: Peel palpebral conjunctiva. Lips and mucosa appear dry. NECK: Supple, no thyromegaly. No obvious jugular venous distention. LUNGS: Clear to auscultation bilaterally. No wheezing appreciated. Poor respiratory effort HEART: No chest wall abnormalities. Regular rate and rhythm with no murmurs appreciated. ABDOMEN: Abdomen is round, soft, still mildly distended. Lower midline incision is intact, no drainage no erythema. Right lower quadrant SABINA drain with serosanguineous fluid. Left colostomy swollen, mildly pale, no output get. EXTREMITIES: Extremities have no deformities. No edema identified. Vital Signs Vital Signs Date Time Temp Pulse Resp B/P (MAP) Pulse Ox O2 Delivery O2 Flow Rate FiO2 03/02/19 12:00 97.2 93 20 133/62 (85) 98 2.0 02/27/19 11:27 Room Air I&Os I&O- Last 24 Hours up to 6 AM 03/02/19 06:00 Intake Total 1425 ml Output Total 50 ml Balance 1375 ml Laboratory Data Labs 24H Laboratory Tests 2 03/01/19 16:01: Bedside Glucose (Misc Panel) 73L 03/01/19 20:19: Bedside Glucose (Misc Panel) 80L 03/02/19 00:59: Bedside Glucose (Misc Panel) 79L 03/02/19 04:09: Bedside Glucose (Misc Panel) 82L 03/02/19 04:10: Immature Granulocyte % (Auto) 0.4, White Blood Count 9.5, Red Blood Count 2.58L, Hemoglobin 8.5L, Hematocrit 27.0L, Mean Corpuscular Volume 104.7H, Mean Corpuscular Hemoglobin 32.9, Mean Corpuscular Hemoglobin Concent 31.5L, Red Cell Distribution Width 17.1H, Platelet Count 193, Neutrophils (%) (Auto) 73.3H, Lymphocytes (%) (Auto) 9.4L, Monocytes (%) (Auto) 9.2H, Eosinophils (%) (Auto) 7.3H, Basophils (%) (Auto) 0.4, Neutrophils # (Auto) 6.9, Lymphocytes # (Auto) 0.9L, Monocytes # (Auto) 0.9H, Eosinophils # (Auto) 0.7H, Basophils # (Auto) 0.0, Nucleated Red Blood Cells % (auto) 0.0, Anion Gap 9, Glomerular Filtration Rate 9.2L, Blood Urea Nitrogen 42H, Creatinine 4.89H, Sodium Level 138, Potassi um Level 4.4, Chloride Level 106, Carbon Dioxide Level 23, Calcium Level 8.8 03/02/19 08:06: Bedside Glucose (Misc Panel) 86 03/02/19 11:59: Bedside Glucose (Misc Panel) 83 CBC/BMP Laboratory Tests 03/02/19 04:10 Red Blood Count 2.58 L, Mean Corpuscular Volume 104.7 H, Mean Corpuscular Hemoglobin 32.9, Mean Corpuscular Hemoglobin Concent 31.5 L, Red Cell Distribution Width 17.1 H, Neutrophils (%) (Auto) 73.3 H, Lymphocytes (%) (Auto) 9.4 L, Monocytes (%) (Auto) 9.2 H, Eosinophils (%) (Auto) 7.3 H, Basophils (%) (Auto) 0.4, Neutrophils # (Auto) 6.9, Lymphocytes # (Auto) 0.9 L, Monocytes # (Auto) 0.9 H, Eosinophils # (Auto) 0.7 H, Basophils # (Auto) 0.0, Calcium Level 8.8 Microbiology Microbiology 02/27/19 Anaerobic Culture, Received Pending 02/27/19 Urine Culture - Final, Complete 02/27/19 Gram Stain - Final, Complete 02/27/19 Abscess Culture - Final, Complete Klebsiella Pneumoniae Escherichia Coli Enterococcus Avium Streptococcus Mitis Streptococcus Anginosus Grp Impression POD3 Ex Lap, Sigmoid colon resection, colostomy for perforation at sigmoid colon d/t diverticulitis/fecal impaction still with episodes of hypoglycemia though not symptomatic, on D10 IVF ESRD on dialysis anemia multifactorial constipation/fecal impaction We are going to get a CT of the head is to make sure there is no any acute cerebral event that would explain the listing to the right side. Her daughter reports that she has been doing this and seems to be favoring the right side because of her left-sided AV fistula. Mentation why she seems to be just about baseline. If the CT of the head is negative I think we can resume her Eliquis. Continue on IV antibiotics. She is on some bowel regimen. My concern is that she has had this hard stools. I think this has some effect on her abdominal distention. Continue on full liquids. She is also getting some Dulcolax suppository per rectum for the rem aining hard stools in the rectum. Dialysis per nephrology. I think she is showing that she will not have a expedient recovery. Given that baseline she may have some poor nutrition, I think it is prudent to start her on TPN while awaiting bowel function. We'll also arrange for PT and OT to start working with her. Plan / VTE VTE Prophylaxis Ordered?: Yes CARL TAPIA MD Mar 02, 2019 14:53
[2019-03-02] MEDS: ERTAPENEM SODIUM 0.5 GM in NS 50 ML IV SCH (15:27)
[2019-03-02] MEDS ORDERED: NS 500 ML IV ONE (17:00)
[2019-03-02] MEDS ORDERED: FAT EMULSION IV 20% 500 ML IV SCH (18:00)
[2019-03-02] MEDS ORDERED: AMINO AC/ELECTROLYTE/DEX/CALC 2,000 ML IV SCH (18:00)
--- NOTE | 2019-03-02 18:37 | IPN ---
DATE: 03/02/2019 Mrs. Teague is seen this morning on her bedside. She is still on intravenous fluid with D10W due to recurrent hypoglycemia. Her diet has been advanced to full liquid diet. Colostomy is still not functioning. She denies any dyspnea or chest pain. She has no fever or chills. PHYSICAL EXAMINATION: The patient is awake and at her baseline mentation. Temperature 98.2 degrees Fahrenheit, heart rate 90 per minute, respiratory rate 20 per minute, blood pressure 143/63 mm of mercury, and oxygen saturation 95% on 2 liters oxygen. Head is atraumatic. Neck is supple and without jugular venous distention (JVD) or thyroid enlargement. Perm-A-Cath is present in right internal jugular vein. Heart sounds are regular, and lungs clear to auscultation. Abdomen soft with some bowel sounds which are hypoactive. Colostomy has no significant output. She has a Sahil-Amor (SABINA) drain in right lower abdomen. Extremities have no cyanosis or clubbing. Today's labs show WBC count 9.5, hemoglobin 8.5, hematocrit 27.0, platelets 193. Sodium 138, potassium 4.4, CO2 of 23, BUN 42, and creatinine 4.89. Glucose 79 and calcium 8.8. Yesterday her iron level was only 16 and saturation 18.6%. PROBLEMS: 1. End-stage renal disease. The patient is due for dialysis today. We will try to dialyze her late this afternoon or most likely merchandise flow associate tomorrow. Her volume status is well compensated, and electrolytes are all within normal range. There is no emergent need for dialysis today. She was last dialyzed on Friday evening after her surgery. 2. Anemia. Her anemia did get worse postoperatively. She can be transfused during dialysis. Dr. March has ordered 1 unit of blood, which can be transfused during dialysis today. 3. Nutrition. The patient has very minimal oral intake. If surgery feels that the patient will not be able to eat for a few more days, then total parenteral nutrition (TPN) could be an option. Unfortunately she could not get a peripherally inserted central catheter (PICC) line placed yesterday, and her hemodialysis catheter is currently being used for intravenous (IV) fluid. TPN can certainly be an option, which can be given via her dialysis catheter if needed. 4. Hypertension. Blood pressure seems well controlled on current medications.
[2019-03-02] MEDS: amLODIPine 5 MG TAB PO SCH (20:31)
[2019-03-02] MEDS: DIVALPROEX 500MG *ER* TAB PO SCH (20:32)
[2019-03-02] MEDS: APIXABAN 2.5 MG TAB (ELIQUIS) PO SCH (20:32)
[2019-03-03] VITALS (19 sets, daily range): BP systolic 100–152; BP diastolic 53–75
[2019-03-03] MEDS: PERCOCET 5MG/325MG TAB PO PRN (04:06)
[2019-03-03 04:23] LABS: BASO % 0.3 % (0.0-1.0); EOS # 0.7 10^3/uL (0.0-0.50); EOS % 7.6 % (0.0-3.0); LYMPH % 10.1 % (24.0-44.0); MEAN CORPUSCULAR HEMOGLOBIN 32.1 pg (27.0-33.0); MEAN CORPUSCULAR HGB CONC 30.8 g/dl (32.0-36.5); MEAN CORPUSCULAR VOLUME 104.4 fl (80.0-96.0); MONO # 1.2 10^3/uL (0.0-0.8); MONO % 12.8 % (0.0-5.0); NEUTROPHILS # 6.4 10^3/uL (1.8-7.7); NEUTROPHILS % 68.2 % (36.0-66.0); PLATELET COUNT, AUTOMATED 184 10^3/uL (150-450); RED BLOOD COUNT 2.49 10^6/uL (4.00-5.40); WHITE BLOOD COUNT 9.4 10^3/uL (4.0-10.0)
[2019-03-03 04:43] LABS: CALCIUM LEVEL 9.3 MG/DL (8.8-10.2); CREATININE FOR GFR 5.63 MG/DL (0.55-1.30); GLOMERULAR FILTRATION RATE 7.8 (>39); POTASSIUM SERUM 4.7 MEQ/L (3.5-5.1)
[2019-03-03] MEDS: cloNIDine 0.1 MG TAB PO SCH ×3 (08:39→20:18)
[2019-03-03] MEDS: ATORVASTATIN 10 MG TAB PO SCH (08:40)
[2019-03-03] MEDS: SENOKOT S TAB PO SCH ×2 (08:40→20:18)
[2019-03-03] MEDS: PANTOPRAZOLE 40MG INJ (PROTONIX) (C9113) IV SCH (08:40)
[2019-03-03] MEDS: BISACODYL 10 MG SUPP PR SCH (08:40)
[2019-03-03] MEDS: APIXABAN 2.5 MG TAB (ELIQUIS) PO SCH ×2 (08:40→20:18)
[2019-03-03] MEDS: MOM 30ML SUSPENSION UDC PO SCH (08:41)
[2019-03-03] MEDS ORDERED: NICOTINE 14 MG/24 HR TRANSDERMAL TD SCH (09:00)
[2019-03-03] MEDS ORDERED: KETOROLAC 30 MG/ML VIAL (J1885) IV PRN (09:15)
--- NOTE | 2019-03-03 09:15 | IPNPDOC ---
Text Note Date of Service The patient was seen on 03/03/19. NOTE S: patient did not receive pRBC yesterday or dialysis. Received morphine at 1999 last night and 2 percocet at 0400 this AM, and now patient is lethargic, tired, falling asleep during exam and slur speech. She is unable to participate with PT today due to pain medication induced lethargy. Daughter at bedside. Patient is able to answer questions appropriately and then falls back asleep. She states no pain, no CP, no SOB, n o stool output via ostomy, minimal gas via ostomy. O: Vitals as below General: lethargic, sleeping, easily awakens HRRR no murmur LCTA no W/R/R, decreased breath sounds Ext: no edema Abdomen: diffusely tender, scant bowel sounds A/P; 1) Perforation at Sigmoid Colon - POD 4 CT abd/pel notable for perforated viscus s/p Diagnostic Laparoscopy converted to Open Exploration with Sigmoid Colectomy and Colostomy Placement on 02/27 Cultures from the OR with klebsiella, e coli, entercoccus and strep. - roblero sensitivity to levaquin and ceftriaxone. would recommend changing invanz to rocephin for abscess culture. Patient on Invanz Patient advanced diet as per Gen Surg Patient hemodynamically stable post-operatively--We will cont to monitor 2) Hypoglycemia - stable and improved with TPN We will cont to monitor the patient's fingerstick levels 3) ESRD on HD Nephrology consulted, dialysis as per them- possibly today 03/03 with 1 unit pRBC 4) Hx of DVT s/p IVC Filter- eliquis restarted post operatively 5) weakness and right side leaning - negative for stroke - this appears to be global weakness and deconditioning. Daughter states weakness/deconditioning started in December after aggressive PT sessions left patient in pain and too tired to continue. Consider adjusting pain medication regimen as this contributes to her fatigue and deconditioning. 6) HTN Cont Norvasc, Clonidine 7) Dyslipidemia Continue statin 8) GI prophylaxis Protonix IV 10) DVT prophylaxis- on eliquis therapeutic dose for age/renal function Current Medications Medications (Trade) Dose Ordered Sig/Katelyn Route PRN Reason Start Time Stop Time Status Last Admin Dose Admin Acetaminophen (Tylenol Tab) 650 mg Q4HP PRN PO MILD PAIN or TEMP > 101 02/27/19 14:15 Albuterol Sulfate (Proventil, Ventolin Hfa) 2 puff Q4H PRN INH SHORTNESS OF BREATH 02/27/19 14:15 Amino Ac/Electrol/ Dextrose/Calcium 2,000 ml @ 60 mls/hr ONCE@1800 IV 03/02/19 18:00 03/03/19 17:59 03/02/19 17:31 Amlodipine Besylate (Norvasc) 5 mg QHS PO 02/27/19 21:00 03/02/19 20:31 Apixaban (Eliquis) 2.5 mg BID PO 03/02/19 21:00 03/03/19 08:40 Atorvastatin Calcium (Lipitor) 10 mg DAILY PO 02/28/19 09:00 03/03/19 08:40 Bisacodyl (Dulcolax Suppository) 10 mg DAILY OH 02/28/19 09:00 03/03/19 08:40 Clonidine HCl (Catapres) 0.1 mg TID PO 02/27/19 16:00 03/02/19 20:33 Dextrose (Dextrose 50%) 25 ml ASDIRECTED PRN IV SEE LABEL COMMENTS 02/27/19 14:15 Dextrose (Dextrose 50%) 50 ml STAT STAT IV 02/28/19 07:15 02/28/19 07:16 DC 02/28/19 08:48 Dextrose (Dextrose 50%) 50 ml STAT STAT IV 02/28/19 12:07 02/28/19 12:09 DC 02/28/19 12:33 Dextrose (Dextrose 50%) 50 ml STAT STAT IV 02/28/19 16:07 02/28/19 16:08 DC 02/28/19 17:52 Dextrose/Sodium Chloride 1,000 ml @ 30 mls/hr Q24H IV 02/27/19 15:00 02/27/19 16:00 DC Dextrose/Sodium Chloride 1,000 ml @ 30 mls/hr Q24H IV 02/28/19 14:00 03/02/19 17:59 DC 03/01/19 14:22 Dextrose/Sodium Chloride 1,000 ml @ 50 mls/hr Q20H IV 02/27/19 15:45 02/28/19 11:44 DC 02/27/19 17:39 Dextrose/Sodium Chloride 1,000 ml @ 100 mls/hr Q10H IV 02/27/19 11:00 02/27/19 14:16 DC Dextrose/Sodium Chloride 1,000 ml @ 100 mls/hr Q10H IV 02/27/19 14:01 02/27/19 15:35 DC Dextrose/Sodium Chloride 1,000 ml @ 125 mls/hr Q8H IV 02/27/19 14:01 02/27/19 14:35 DC Diphenhydramine HCl (Benadryl Elixir) 12.5 mg Q6H PRN PO ITCHING 02/27/19 14:15 Divalproex Sodium (Depakote Er) 1,000 mg QHS PO 02/27/19 21:00 03/02/19 20:32 Enoxaparin Sodium (Lovenox) 30 mg DAILY SC 03/01/19 09:00 03/01/19 09:00 DC Enoxaparin Sodium (Lovenox) 30 mg DAILY SC 03/01/19 09:00 03/01/19 09:00 DC Ertapenem 0.5 gm/ Sodium Chloride 50 ml @ 100 mls/hr Q24H IV 02/28/19 16:00 03/02/19 15:27 Ertapenem 1 gm/ Sodium Chloride 50 ml @ 100 mls/hr Q24H IV 02/27/19 14:15 02/27/19 14:40 DC Fat Emulsion Intravenous 500 ml @ 20 mls/hr ONCE@1800 IV 03/02/19 18:00 03/03/19 17:59 03/02/19 17:32 Fentanyl Citrate (Sublimaze) 25 mcg Q5MP PRN IV MODERATE PAIN (PS 4-7) 02/27/19 15:00 02/27/19 16:00 DC Glucagon (Glucagon) 1 mg ASDIRECTED PRN SC SEE LABEL COMMENTS 02/27/19 14:15 Glucose (Glucose) 16 GM ASDIRECTED PRN PO SEE LABEL COMMENTS 02/27/19 14:15 Heparin Sodium (Porcine) (Heparin) 5,000 units Q12H SQ 03/01/19 09:00 03/02/19 10:30 DC 03/02/19 09:28 Home Med (Med Rec Complete!) ASDIRECTED XX 02/27/19 10:45 02/27/19 10:45 DC Hydromorphone HCl (Dilaudid) 0.2 mg Q5MP PRN IV MODERATE/SEVERE PAIN (PS 5-10) 02/27/19 15:00 02/27/19 16:00 DC 02/27/19 15:35 Insulin Human Lispro (HumaLOG INSULIN) SEE PROTOCOL TABLE QHS SC 02/27/19 21:00 02/27/19 21:00 DC Insulin Human Lispro (HumaLOG INSULIN) See Protocol Table AC SC 02/27/19 17:30 02/28/19 07:16 DC Magnesium Hydroxide (Milk Of Magnesia) 30 ml DAILY PO 02/28/19 09:00 03/03/19 08:41 Metoclopramide HCl (REGLAN INJection) 5 mg Q6HP PRN IV NAUSEA OR VOMITING 02/27/19 15:00 02/27/19 16:00 DC 02/27/19 14:50 Morphine Sulfate (Morphine Sulfate Inj) 4 mg Q3HP PRN IV SEVERE PAIN (PS 8-10) 02/27/19 14:15 03/02/19 20:31 Nicotine (Nicoderm Cq 14mg) 1 patch DAILY TD 03/03/19 09:00 03/03/19 09:00 DC Ondansetron HCl (ZOFRAN INJection) 4 mg Q4HP PRN IV NAUSEA OR VOMITING 02/27/19 15:00 02/27/19 16:00 DC Ondansetron HCl (ZOFRAN INJection) 4 mg Q6HP PRN IV NAUSEA OR VOMITING 02/27/19 14:15 03/02/19 20:30 Oxycodone/ Acetaminophen (Percocet 5mg/ 325mg Tablet) 1 tab Q4HP PRN PO MODERATE PAIN (PS 5-7) 02/27/19 14:15 03/01/19 17:23 Oxycodone/ Acetaminophen (Percocet 5mg/ 325mg Tablet) 2 tab Q6HP PRN PO SEVERE PAIN (PS 8-10) 02/27/19 14:15 03/03/19 04:06 Pantoprazole Sodium (Protonix) 40 mg DAILY IV 02/27/19 09:00 03/03/19 08:40 Promethazine HCl (PHENERGAN INJection) 25 mg Q6HP PRN IV NAUSEA 02/27/19 19:45 02/28/19 00:18 DC 02/27/19 19:58 Senna/Docusate Sodium (Senokot S) 1 tab BID PO 02/28/19 09:00 03/03/19 08:40 VS,Patito, I+O VS, Guilhermebone, I+O Laboratory Tests 03/03/19 03:47 Red Blood Count 2.49 L, Mean Corpuscular Volume 104.4 H, Mean Corpuscular Hemoglobin 32.1, Mean Corpuscular Hemoglobin Concent 30.8 L, Red Cell Distribution Width 16.9 H, Neutrophils (%) (Auto) 68.2 H, Lymphocytes (%) (Auto) 10.1 L, Monocytes (%) (Auto) 12.8 H, Eosinophils (%) (Auto) 7.6 H, Basophils (%) (Auto) 0.3, Neutrophils # (Auto) 6.4, Lymphocytes # (Auto) 1.0 L, Monocytes # (Auto) 1.2 H, Eosinophils # (Auto) 0.7 H, Basophils # (Auto) 0.0, Calcium Level 9.3 Vital Signs Date Time Temp Pulse Resp B/P (MAP) Pulse Ox O2 Delivery O2 Flow Rate FiO2 03/03/19 06:00 73 17 102/53 (69) 97 2.0 03/03/19 04:00 99.0 02/27/19 11:27 Room Air I&O- Last 24 Hours up to 6 AM 03/03/19 06:00 Intake Total 1520 ml Output Total 40 ml Balance 1480 ml RAYO RUSH DO Mar 03, 2019 07:31
--- NOTE | 2019-03-03 09:17 | IPNPDOC ---
Subjective General Date/Time Seen The patient was seen on 03/03/19 at 09:14. Subject Chief Complaint/History The patient is a 73-year-old female admitted with a reason for visit of Perforated Viscus. Patient looks lethargic this morning. She can be awakened with verbal prompts but would promptly fell back to sleep. Otherwise she has been hemodynamically stable. Still no stool output yet from the colostomy. Current Medications Current Medications Current Medications Medications (Trade) Dose Ordered Sig/Katelyn Route PRN Reason Start Time Stop Time Status Last Admin Dose Admin Acetaminophen (Tylenol Tab) 650 mg Q4HP PRN PO MILD PAIN or TEMP > 101 02/27/19 14:15 Albuterol Sulfate (Proventil, Ventolin Hfa) 2 puff Q4H PRN INH SHORTNESS OF BREATH 02/27/19 14:15 Amino Ac/Electrol/ Dextrose/Calcium 2,000 ml @ 60 mls/hr ONCE@1800 IV 03/02/19 18:00 03/03/19 17:59 03/02/19 17:31 Amlodipine Besylate (Norvasc) 5 mg QHS PO 02/27/19 21:00 03/02/19 20:31 Apixaban (Eliquis) 2.5 mg BID PO 03/02/19 21:00 03/03/19 08:40 Atorvastatin Calcium (Lipitor) 10 mg DAILY PO 02/28/19 09:00 03/03/19 08:40 Bisacodyl (Dulcolax Suppository) 10 mg DAILY MO 02/28/19 09:00 03/03/19 08:40 Clonidine HCl (Catapres) 0.1 mg TID PO 02/27/19 16:00 03/02/19 20:33 Dextrose (Dextrose 50%) 25 ml ASDIRECTED PRN IV SEE LABEL COMMENTS 02/27/19 14:15 Dextrose (Dextrose 50%) 50 ml STAT STAT IV 02/28/19 07:15 02/28/19 07:16 DC 02/28/19 08:48 Dextrose (Dextrose 50%) 50 ml STAT STAT IV 02/28/19 12:07 02/28/19 12:09 DC 02/28/19 12:33 Dextrose (Dextrose 50%) 50 ml STAT STAT IV 02/28/19 16:07 02/28/19 16:08 DC 02/28/19 17:52 Dextrose/Sodium Chloride 1,000 ml @ 30 mls/hr Q24H IV 02/27/19 15:00 02/27/19 16:00 DC Dextrose/Sodium Chloride 1,000 ml @ 30 mls/hr Q24H IV 02/28/19 14:00 03/02/19 17:59 DC 03/01/19 14:22 Dextrose/Sodium Chloride 1,000 ml @ 50 mls/hr Q20H IV 02/27/19 15:45 02/28/19 11:44 DC 02/27/19 17:39 Dextrose/Sodium Chloride 1,000 ml @ 100 mls/hr Q10H IV 02/27/19 11:00 02/27/19 14:16 DC Dextrose/Sodium Chloride 1,000 ml @ 100 mls/hr Q10H IV 02/27/19 14:01 02/27/19 15:35 DC Dextrose/Sodium Chloride 1,000 ml @ 125 mls/hr Q8H IV 02/27/19 14:01 02/27/19 14:35 DC Diphenhydramine HCl (Benadryl Elixir) 12.5 mg Q6H PRN PO ITCHING 02/27/19 14:15 Divalproex Sodium (Depakote Er) 1,000 mg QHS PO 02/27/19 21:00 03/02/19 20:32 Enoxaparin Sodium (Lovenox) 30 mg DAILY SC 03/01/19 09:00 03/01/19 09:00 DC Enoxaparin Sodium (Lovenox) 30 mg DAILY SC 03/01/19 09:00 03/01/19 09:00 DC Ertapenem 0.5 gm/ Sodium Chloride 50 ml @ 100 mls/hr Q24H IV 02/28/19 16:00 03/02/19 15:27 Ertapenem 1 gm/ Sodium Chloride 50 ml @ 100 mls/hr Q24H IV 02/27/19 14:15 02/27/19 14:40 DC Fat Emulsion Intravenous 500 ml @ 20 mls/hr ONCE@1800 IV 03/02/19 18:00 03/03/19 17:59 03/02/19 17:32 Fentanyl Citrate (Sublimaze) 25 mcg Q5MP PRN IV MODERATE PAIN (PS 4-7) 02/27/19 15:00 02/27/19 16:00 DC Glucagon (Glucagon) 1 mg ASDIRECTED PRN SC SEE LABEL COMMENTS 02/27/19 14:15 Glucose (Glucose) 16 GM ASDIRECTED PRN PO SEE LABEL COMMENTS 02/27/19 14:15 Heparin Sodium (Porcine) (Heparin) 5,000 units Q12H SQ 03/01/19 09:00 03/02/19 10:30 DC 03/02/19 09:28 Home Med (Med Rec Complete!) ASDIRECTED XX 02/27/19 10:45 02/27/19 10:45 DC Hydromorphone HCl (Dilaudid) 0.2 mg Q5MP PRN IV MODERATE/SEVERE PAIN (PS 5-10) 02/27/19 15:00 02/27/19 16:00 DC 02/27/19 15:35 Insulin Human Lispro (HumaLOG INSULIN) SEE PROTOCOL TABLE QHS SC 02/27/19 21:00 02/27/19 21:00 DC Insulin Human Lispro (HumaLOG INSULIN) See Protocol Table AC SC 02/27/19 17:30 02/28/19 07:16 DC Ketorolac Tromethamine (ToRADol) 15 mg Q12H PRN IV pain 03/03/19 09:15 03/08/19 09:14 UNV Magnesium Hydroxide (Milk Of Magnesia) 30 ml DAILY PO 02/28/19 09:00 03/03/19 08:41 Metoclopramide HCl (REGLAN INJection) 5 mg Q6HP PRN IV NAUSEA OR VOMITING 02/27/19 15:00 02/27/19 16:00 DC 02/27/19 14:50 Morphine Sulfate (Morphine Sulfate Inj) 4 mg Q3HP PRN IV SEVERE PAIN (PS 8-10) 02/27/19 14:15 03/02/19 20:31 Nicotine (Nicoderm Cq 14mg) 1 patch DAILY TD 03/03/19 09:00 03/03/19 09:00 DC Ondansetron HCl (ZOFRAN INJection) 4 mg Q4HP PRN IV NAUSEA OR VOMITING 02/27/19 15:00 02/27/19 16:00 DC Ondansetron HCl (ZOFRAN INJection) 4 mg Q6HP PRN IV NAUSEA OR VOMITING 02/27/19 14:15 03/02/19 20:30 Oxycodone/ Acetaminophen (Percocet 5mg/ 325mg Tablet) 1 tab Q4HP PRN PO MODERATE PAIN (PS 5-7) 02/27/19 14:15 03/01/19 17:23 Oxycodone/ Acetaminophen (Percocet 5mg/ 325mg Tablet) 2 tab Q6HP PRN PO SEVERE PAIN (PS 8-10) 02/27/19 14:15 03/03/19 04:06 Pantoprazole Sodium (Protonix) 40 mg DAILY IV 02/27/19 09:00 03/03/19 08:40 Promethazine HCl (PHENERGAN INJection) 25 mg Q6HP PRN IV NAUSEA 02/27/19 19:45 02/28/19 00:18 DC 02/27/19 19:58 Senna/Docusate Sodium (Senokot S) 1 tab BID PO 02/28/19 09:00 03/03/19 08:40 Allergies Coded Allergies: Penicillins (Verified Allergy, Intermediate, RASH, 02/27/19) ciprofloxacin (Verified Adverse Reaction, Mild, NV, 02/27/19) Objective Physical Examination Examination GENERAL APPEARANCE: Asleep, lethargic. SKIN: Warm and dry. HEENT: Mild pale palpebral conjunctiva. Lips mildly dry. NECK: Supple, no thyromegaly. No obvious jugular venous distention. LUNGS: Clear to auscultation bilaterally. No wheezing appreciated. HEART: No chest wall abnormalities. Regular rate and rhythm with no murmurs appr eciated. ABDOMEN: Abdomen is found, soft, slightly less distended today compared to yesterday.. Lower midline incision with imer intact. No bleeding no drainage. Left lower quadrant ostomy with some air in the bag no stool output as of yet. Right lower quadrant SABINA drain noted small amount of serosanguineous light pink fluid. EXTREMITIES: Extremities have no deformities. No edema identified. Vital Signs Vital Signs Date Time Temp Pulse Resp B/P (MAP) Pulse Ox O2 Delivery O2 Flow Rate FiO2 03/03/19 08:39 133/60 03/03/19 06:00 73 17 97 2.0 03/03/19 04:00 99.0 02/27/19 11:27 Room Air I&Os I&O- Last 24 Hours up to 6 AM 03/03/19 06:00 Intake Total 1520 ml Output Total 40 ml Balance 1480 ml Laboratory Data Labs 24H Laboratory Tests 2 03/02/19 11:59: Bedside Glucose (Misc Panel) 83 03/02/19 15:23: Bedside Glucose (Misc Panel) 88 03/02/19 20:03: Bedside Glucose (Misc Panel) 118H 03/03/19 00:17: Bedside Glucose (Misc Panel) 117H 03/03/19 03:47: Immature Granulocyte % (Auto) 1.0, White Blood Count 9.4, Red Blood Count 2.49L, Hemoglobin 8.0L, Hematocrit 26.0L, Mean Corpuscular Volume 104.4H, Mean Corpuscular Hemoglobin 32.1, Mean Corpuscular Hemoglobin Concent 30.8L, Red Cell Distribution Width 16.9H, Platelet Count 184, Neutrophils (%) (Auto) 68.2H, Lymphocytes (%) (Auto) 10.1L, Monocytes (%) (Auto) 12.8H, Eosinophils (%) (Auto) 7.6H, Basophils (%) (Auto) 0.3, Neutrophils # (Auto) 6.4, Lymphocytes # (Auto) 1.0L, Monocytes # (Auto) 1.2H, Eosinophils # (Auto) 0.7H, Basophils # (Auto) 0.0, Nucleated Red Blood Cells % (auto) 0.0, Bedside Glucose (Misc Panel) 116H, Anion Gap 6L, Glomerular Filtration Rate 7.8L, Blood Urea Nitrogen 56H, Creatinine 5.63H, Sodium Level 136, Potassium Level 4.7, Chloride Level 103, Carbon Dioxide Level 27, Calcium Level 9.3, Total Creatine Kinase 41 CBC/BMP Laboratory Tests 03/03/19 03:47 Red Blood Count 2.49 L, Mean Corpuscular Volume 104.4 H, Mean Corpuscular Hemoglobin 32.1, Mean Corpuscular Hemoglobin Concent 30.8 L, Red Cell Distribution Width 16.9 H, Neutrophils (%) (Auto) 68.2 H, Lymphocytes (%) (Auto) 10.1 L, Monocytes (%) (Auto) 12.8 H, Eosinophils (%) (Auto) 7.6 H, Basophils (%) (Auto) 0.3, Neutrophils # (Auto) 6.4, Lymphocytes # (Auto) 1.0 L, Monocytes # (Auto) 1.2 H, Eosinophils # (Auto) 0.7 H, Basophils # (Auto) 0.0, Calcium Level 9.3 Microbiology Microbiology 02/27/19 Anaerobic Culture, Received Pending 02/27/19 Urine Culture - Final, Complete 02/27/19 Gram Stain - Final, Complete 02/27/19 Abscess Culture - Final, Complete Klebsiella Pneumoniae Escherichia Coli Enterococcus Avium Streptococcus Mitis Streptococcus Anginosus Grp Impression POD4 Ex Lap, Sigmoid colon resection, colostomy for perforation at sigmoid colon d/t diverticulitis/fecal impaction still with episodes of hypoglycemia though not symptomatic, on D10 IVF ESRD on dialysis anemia multifactorial constipation/fecal impaction Shes quite lethargic this morning, she would wake up when prompted but would fall back to sleep so PT and nurses not able to do much with her activity prado. She took a few bites from her morning tray(oatmeal) it looks like. She has been started on TPN and would need this continued until she has adequate oral intake. Shes requiring intermittent percocets for pain, last one was 4 am. Ill add some toradol to see if we can control the pain without narcotics. Ostomy starting to show function (gas) and abdomen slightly softer. may resume eliquis dialysis today per nerphrology - would get a unit of blood with dialysis. Patient remains on Invanz. I reviewed the microbiology results. Should be adequate coverage. This will be difficult to confer to orals given allergy to both penicillin and 14 on screening reported by the patient. Continue with TPN Plan / VTE VTE Prophylaxis Ordered?: Yes CARL TAPIA MD Mar 03, 2019 09:17
[2019-03-03] MEDS: ONDANSETRON 4MG/2ML VIAL (J2405) IV PRN (09:48)
[2019-03-03] MEDS ORDERED: HEPARIN 1,000 UNITS/ML 10ML VIAL (FOR RADIOLOGY& DIALYSIS ONLY) XX ONE (14:00)
[2019-03-03] MEDS ORDERED: AMINO AC/ELECTROLYTE/DEX/CALC 2,000 ML IV SCH (18:00)
[2019-03-03] MEDS ORDERED: FAT EMULSION IV 20% 500 ML IV SCH (18:00)
[2019-03-03] MEDS: ERTAPENEM SODIUM 0.5 GM in NS 50 ML IV SCH (18:59)
[2019-03-03] MEDS: KETOROLAC 30 MG/ML VIAL (J1885) IV PRN (19:01)
[2019-03-03] MEDS: HumaLOG INSULIN (NovoLOG) PER UNIT SC SCH (19:18)
[2019-03-03] MEDS: DIVALPROEX 500MG *ER* TAB PO SCH ×3 (20:17→21:10)
[2019-03-03] MEDS: amLODIPine 5 MG TAB PO SCH (20:18)
[2019-03-04] VITALS (23 sets, daily range): BP systolic 120–171; BP diastolic 57–83
[2019-03-04] MEDS: HumaLOG INSULIN (NovoLOG) PER UNIT SC SCH ×4 (06:00→17:57)
[2019-03-04 07:58] LABS: CALCIUM LEVEL 8.4 MG/DL (8.8-10.2); CREATININE FOR GFR 2.92 MG/DL (0.55-1.30); GLOMERULAR FILTRATION RATE 16.7 (>39); POTASSIUM SERUM 4.1 MEQ/L (3.5-5.1)
[2019-03-04 08:12] LABS: BASO # 0.1 10^3/uL (0.0-0.2); EOS # 0.7 10^3/uL (0.0-0.50); HEMATOCRIT 36.2 % (36.0-47.0); LYMPH # 1.2 10^3/uL (1.5-4.5); LYMPH % 13.4 % (24.0-44.0); MEAN CORPUSCULAR HEMOGLOBIN 29.5 pg (27.0-33.0); MEAN CORPUSCULAR HGB CONC 32.3 g/dl (32.0-36.5); MEAN CORPUSCULAR VOLUME 91.4 fl (80.0-96.0); MONO # 1.6 10^3/uL (0.0-0.8); MONO % 18.4 % (0.0-5.0); NEUTROPHILS # 4.7 10^3/uL (1.8-7.7); NEUTROPHILS % 54.6 % (36.0-66.0); PLATELET COUNT, AUTOMATED 172 10^3/uL (150-450); RED BLOOD COUNT 3.96 10^6/uL (4.00-5.40); WHITE BLOOD COUNT 8.7 10^3/uL (4.0-10.0)
[2019-03-04] MEDS: cloNIDine 0.1 MG TAB PO SCH ×3 (09:00→21:41)
[2019-03-04] MEDS: APIXABAN 2.5 MG TAB (ELIQUIS) PO SCH ×3 (09:00→21:00)
[2019-03-04 09:22] LABS: HEMOGLOBIN 11.7 g/dl (12.0-15.5)
--- NOTE | 2019-03-04 11:24 | IPNPDOC ---
Text Note Date of Service The patient was seen on 03/04/19. NOTE S:Patient discouraged this AM. States feels better than yesterday but has di ffuse pain (myalgia, arthralgia and abdomen pain). states no CP, no SOB, no N. no stool output; received dialysis and i unit pRBC yesterday. O: Vitals as below General: pleasant NAD AAOx3 HRRR LCTA Abdomen: distended, soft, no audible bowel sounds. no stool in ostomy Ext: no edema A/P: 1) Perforation at Sigmoid Colon - POD 5 CT abd/pel notable for perforated viscus s/p Diagnostic Laparoscopy converted to Open Exploration with Sigmoid Colectomy and Colostomy Placement on 02/27 Cultures from the OR with klebsiella, e coli, entercoccus and strep. - discussed with surgeon and continue with deangeloanz for now. Patient advanced diet as per Gen Surg Patient hemodynamically stable post-operatively Case discussed with nephrology /surgery and will order CT abd/pel due to distension, increased pain, no stool output from ostomy 2) Hypoglycemia - stable and improved with TPN We will cont to monitor the patient's fingerstick levels 3) ESRD on HD Nephrology consulted, dialysis as per them- dialysis on 03/03 and transfused i unit pRBC 03/03 4) Hx of DVT s/p IVC Filter- eliquis restarted post operatively 5) weakness and right side leaning - negative for stroke - this appears to be global weakness and deconditioning. Daughter states weakness/deconditioning started in December after aggressive PT sessions left patient in pain and too tired to continue. 6) HTN Cont Norvasc, Clonidine 7) Dyslipidemia Continue statin 8) GI prophylaxis Protonix IV 10) DVT prophylaxis- on eliquis therapeutic dose for age/renal function Current Medications Medications (Trade) Dose Ordered Sig/Katelyn Route PRN Reason Start Time Stop Time Status Last Admin Dose Admin Acetaminophen (Tylenol Tab) 650 mg Q4HP PRN PO MILD PAIN or TEMP > 101 02/27/19 14:15 Albuterol Sulfate (Proventil, Ventolin Hfa) 2 puff Q4H PRN INH SHORTNESS OF BREATH 02/27/19 14:15 Amino Ac/Electrol/ Dextrose/Calcium 2,000 ml @ 60 mls/hr ONCE@1800 IV 03/02/19 18:00 03/03/19 17:59 DC 03/02/19 17:31 Amino Ac/Electrol/ Dextrose/Calcium 2,000 ml @ 60 mls/hr ONCE@1800 IV 03/03/19 18:00 03/04/19 17:59 03/03/19 18:59 Amlodipine Besylate (Norvasc) 5 mg QHS PO 02/27/19 21:00 03/03/19 20:18 Apixaban (Eliquis) 2.5 mg BID PO 03/02/19 21:00 03/03/19 20:18 Atorvastatin Calcium (Lipitor) 10 mg DAILY PO 02/28/19 09:00 03/03/19 08:40 Bisacodyl (Dulcolax Suppository) 10 mg DAILY OK 02/28/19 09:00 03/03/19 08:40 Clonidine HCl (Catapres) 0.1 mg TID PO 02/27/19 16:00 03/03/19 20:18 Dextrose (Dextrose 50%) 25 ml ASDIRECTED PRN IV SEE LABEL COMMENTS 02/27/19 14:15 Dextrose (Dextrose 50%) 50 ml STAT STAT IV 02/28/19 07:15 02/28/19 07:16 DC 02/28/19 08:48 Dextrose (Dextrose 50%) 50 ml STAT STAT IV 02/28/19 12:07 02/28/19 12:09 DC 02/28/19 12:33 Dextrose (Dextrose 50%) 50 ml STAT STAT IV 02/28/19 16:07 02/28/19 16:08 DC 02/28/19 17:52 Dextrose/Sodium Chloride 1,000 ml @ 30 mls/hr Q24H IV 02/27/19 15:00 02/27/19 16:00 DC Dextrose/Sodium Chloride 1,000 ml @ 30 mls/hr Q24H IV 02/28/19 14:00 03/02/19 17:59 DC 03/01/19 14:22 Dextrose/Sodium Chloride 1,000 ml @ 50 mls/hr Q20H IV 02/27/19 15:45 02/28/19 11:44 DC 02/27/19 17:39 Dextrose/Sodium Chloride 1,000 ml @ 100 mls/hr Q10H IV 02/27/19 11:00 02/27/19 14:16 DC Dextrose/Sodium Chloride 1,000 ml @ 100 mls/hr Q10H IV 02/27/19 14:01 02/27/19 15:35 DC Dextrose/Sodium Chloride 1,000 ml @ 125 mls/hr Q8H IV 02/27/19 14:01 02/27/19 14:35 DC Diphenhydramine HCl (Benadryl Elixir) 12.5 mg Q6H PRN PO ITCHING 02/27/19 14:15 Divalproex Sodium (Depakote Er) 1,000 mg QHS PO 02/27/19 21:00 03/02/19 20:32 Enoxaparin Sodium (Lovenox) 30 mg DAILY SC 03/01/19 09:00 03/01/19 09:00 DC Enoxaparin Sodium (Lovenox) 30 mg DAILY SC 03/01/19 09:00 03/01/19 09:00 DC Ertapenem 0.5 gm/ Sodium Chloride 50 ml @ 100 mls/hr Q24H IV 02/28/19 16:00 03/03/19 18:59 Ertapenem 1 gm/ Sodium Chloride 50 ml @ 100 mls/hr Q24H IV 02/27/19 14:15 02/27/19 14:40 DC Fat Emulsion Intravenous 500 ml @ 20 mls/hr ONCE@1800 IV 03/02/19 18:00 03/03/19 17:59 DC 03/02/19 17:32 Fat Emulsion Intravenous 500 ml @ 20 mls/hr ONCE@1800 IV 03/03/19 18:00 03/04/19 17:59 03/03/19 19:00 Fentanyl Citrate (Sublimaze) 25 mcg Q5MP PRN IV MODERATE PAIN (PS 4-7) 02/27/19 15:00 02/27/19 16:00 DC Glucagon (Glucagon) 1 mg ASDIRECTED PRN SC SEE LABEL COMMENTS 02/27/19 14:15 Glucose (Glucose) 16 GM ASDIRECTED PRN PO SEE LABEL COMMENTS 02/27/19 14:15 Heparin Sodium (Porcine) (Heparin) 5,000 units Q12H SQ 03/01/19 09:00 03/02/19 10:30 DC 03/02/19 09:28 Home Med (Med Rec Complete!) ASDIRECTED XX 02/27/19 10:45 02/27/19 10:45 DC Hydromorphone HCl (Dilaudid) 0.2 mg Q5MP PRN IV MODERATE/SEVERE PAIN (PS 5-10) 02/27/19 15:00 02/27/19 16:00 DC 02/27/19 15:35 Insulin Human Lispro (HumaLOG INSULIN) SEE PROTOCOL TABLE QHS SC 02/27/19 21:00 02/27/19 21:00 DC Insulin Human Lispro (HumaLOG INSULIN) See Protocol Table AC SC 02/27/19 17:30 02/28/19 07:16 DC Insulin Human Lispro (HumaLOG INSULIN) See Protocol Table Q6H SC 03/03/19 18:00 03/04/19 12:01 Ketorolac Tromethamine (ToRADol) 10 mg Q12H PRN IV pain 03/03/19 09:00 03/08/19 08:59 03/03/19 19:01 Ketorolac Tromethamine (ToRADol) 15 mg Q12H PRN IV pain 03/03/19 09:15 03/03/19 10:16 DC Magnesium Hydroxide (Milk Of Magnesia) 30 ml DAILY PO 02/28/19 09:00 03/03/19 08:41 Metoclopramide HCl (REGLAN INJection) 5 mg Q6HP PRN IV NAUSEA OR VOMITING 02/27/19 15:00 02/27/19 16:00 DC 02/27/19 14:50 Morphine Sulfate (Morphine Sulfate Inj) 4 mg Q3HP PRN IV SEVERE PAIN (PS 8-10) 02/27/19 14:15 03/03/19 13:54 DC 03/02/19 20:31 Nicotine (Nicoderm Cq 14mg) 1 patch DAILY TD 03/03/19 09:00 03/03/19 09:00 DC Ondansetron HCl (ZOFRAN INJection) 4 mg Q4HP PRN IV NAUSEA OR VOMITING 02/27/19 15:00 02/27/19 16:00 DC Ondansetron HCl (ZOFRAN INJection) 4 mg Q6HP PRN IV NAUSEA OR VOMITING 02/27/19 14:15 03/03/19 09:48 Oxycodone/ Acetaminophen (Percocet 5mg/ 325mg Tablet) 1 tab Q4HP PRN PO MODERATE PAIN (PS 5-7) 02/27/19 14:15 03/01/19 17:23 Oxycodone/ Acetaminophen (Percocet 5mg/ 325mg Tablet) 2 tab Q6HP PRN PO SEVERE PAIN (PS 8-10) 02/27/19 14:15 03/03/19 04:06 Pantoprazole Sodium (Protonix) 40 mg DAILY IV 02/27/19 09:00 03/03/19 08:40 Promethazine HCl (PHENERGAN INJection) 25 mg Q6HP PRN IV NAUSEA 02/27/19 19:45 02/28/19 00:18 DC 02/27/19 19:58 Senna/Docusate Sodium (Senokot S) 1 tab BID PO 02/28/19 09:00 03/03/19 20:18 VS,Fishbone, I+O VS, Fishbone, I+O Laboratory Tests 03/04/19 03:31 Red Blood Count 3.96 L, Mean Corpuscular Volume 91.4, Mean Corpuscular Hemoglobin 29.5, Mean Corpuscular Hemoglobin Concent 32.3, Red Cell Distribution Width 24.1 H, Neutrophils (%) (Auto) 54.6, Lymphocytes (%) (Auto) 13.4 L, Monocytes (%) (Auto) 18.4 H, Eosinophils (%) (Auto) 8.0 H, Basophils (%) (Auto) 1.0, Neutrophils # (Auto) 4.7, Lymphocytes # (Auto) 1.2 L, Monocytes # (Auto) 1.6 H, Eosinophils # (Auto) 0.7 H, Basophils # (Auto) 0.1, Calcium Level 8.4 L Vital Signs Date Time Temp Pulse Resp B/P (MAP) Pulse Ox O2 Delivery O2 Flow Rate FiO2 03/04/19 09:00 127/62 03/04/19 06:00 70 16 95 2.0 03/04/19 04:00 98.2 02/27/19 11:27 Room Air I&O- Last 24 Hours up to 6 AM 03/04/19 06:00 Intake Total 2180 ml Output Total 1550 ml Balance 630 ml RAYO RUSH DO Mar 04, 2019 10:40
[2019-03-04] MEDS: SENOKOT S TAB PO SCH ×2 (11:28→21:41)
[2019-03-04] MEDS: ATORVASTATIN 10 MG TAB PO SCH (11:28)
[2019-03-04] MEDS: BISACODYL 10 MG SUPP PR SCH (11:29)
[2019-03-04] MEDS: MOM 30ML SUSPENSION UDC PO SCH (11:29)
[2019-03-04] MEDS: PANTOPRAZOLE 40MG INJ (PROTONIX) (C9113) IV SCH (11:29)
[2019-03-04] MEDS: PERCOCET 5MG/325MG TAB PO PRN ×2 (11:32→20:06)
--- NOTE | 2019-03-04 12:47 | REP ---
REASON: Postop evaluation. COMPARISON: 02/27/2019, a preoperative exam. The lack of intravenous contrast decreases the sensitivity of the exam. There are small bilateral pleural effusions, left greater than right but representing a change from the prior exam. The gallbladder is hydropic and increased in size from the prior exam. This is seen in conjunction with intrahepatic and extrahepatic ductal dilatation also increased from the prior exam. The liver is otherwise unchanged. The spleen, pancreas, adrenal glands, and kidneys are unchanged. There is a left parasagittal colostomy which represents a change from the prior exam. There is no intestinal obstruction. There is no change in the abdominal aorta or para-aortic regions. There is no change in the Rogers filter. A drainage tube is seen ending in the left hemipelvis representing a change from the prior exam. There is no change in the osseous structures. IMPRESSION: 1. Bilateral pleural effusions as described above. 2. Postop colostomy without evidence of intestinal obstruction. 3. Surgical drainage tube on the left. 4. Other findings as described above. ? Electronically Signed by Joseph Patrick DO 03/04/2019 03:42 P
[2019-03-04] MEDS: KETOROLAC 30 MG/ML VIAL (J1885) IV PRN (15:26)
--- NOTE | 2019-03-04 16:14 | IPNPDOC ---
Subjective General Date/Time Seen The patient was seen on 03/04/19 at 16:05. Subject Chief Complaint/History The patient is a 73-year-old female admitted with a reason for visit of Perforated Viscus. Patient looks more awake today. She is complaining of pain all over especially when moving around including of her abdomen. She denies any nausea. She was suspected to have some aspiration when she was taken her medications last night but she did okay this morning. A CT scan of the abdomen and pelvis was done at the request of the hospitalist for workup the abdominal pain. No function yet on her colostomy. Current Medications Current Medications Current Medications Medications (Trade) Dose Ordered Sig/Katelyn Route PRN Reason Start Time Stop Time Status Last Admin Dose Admin Acetaminophen (Tylenol Tab) 650 mg Q4HP PRN PO MILD PAIN or TEMP > 101 02/27/19 14:15 Albuterol Sulfate (Proventil, Ventolin Hfa) 2 puff Q4H PRN INH SHORTNESS OF BREATH 02/27/19 14:15 Amino Ac/Electrol/ Dextrose/Calcium 2,000 ml @ 60 mls/hr ONCE@1800 IV 03/02/19 18:00 03/03/19 17:59 DC 03/02/19 17:31 Amino Ac/Electrol/ Dextrose/Calcium 2,000 ml @ 60 mls/hr ONCE@1800 IV 03/03/19 18:00 03/04/19 17:59 03/03/19 18:59 Amino Ac/Electrol/ Dextrose/Calcium 2,000 ml @ 60 mls/hr ONCE@1800 IV 03/04/19 18:00 03/05/19 17:59 Amlodipine Besylate (Norvasc) 5 mg QHS PO 02/27/19 21:00 03/03/19 20:18 Apixaban (Eliquis) 2.5 mg BID PO 03/02/19 21:00 03/03/19 20:18 Atorvastatin Calcium (Lipitor) 10 mg DAILY PO 02/28/19 09:00 03/04/19 11:28 Bisacodyl (Dulcolax Suppository) 10 mg DAILY IN 02/28/19 09:00 03/04/19 11:29 Clonidine HCl (Catapres) 0.1 mg TID PO 02/27/19 16:00 03/03/19 20:18 Dextrose (Dextrose 50%) 25 ml ASDIRECTED PRN IV SEE LABEL COMMENTS 02/27/19 14:15 Dextrose (Dextrose 50%) 50 ml STAT STAT IV 02/28/19 07:15 02/28/19 07:16 DC 02/28/19 08:48 Dextrose (Dextrose 50%) 50 ml STAT STAT IV 02/28/19 12:07 02/28/19 12:09 DC 02/28/19 12:33 Dextrose (Dextrose 50%) 50 ml STAT STAT IV 02/28/19 16:07 02/28/19 16:08 DC 02/28/19 17:52 Dextrose/Sodium Chloride 1,000 ml @ 30 mls/hr Q24H IV 02/27/19 15:00 02/27/19 16:00 DC Dextrose/Sodium Chloride 1,000 ml @ 30 mls/hr Q24H IV 02/28/19 14:00 03/02/19 17:59 DC 03/01/19 14:22 Dextrose/Sodium Chloride 1,000 ml @ 50 mls/hr Q20H IV 02/27/19 15:45 02/28/19 11:44 DC 02/27/19 17:39 Dextrose/Sodium Chloride 1,000 ml @ 100 mls/hr Q10H IV 02/27/19 11:00 02/27/19 14:16 DC Dextrose/Sodium Chloride 1,000 ml @ 100 mls/hr Q10H IV 02/27/19 14:01 02/27/19 15:35 DC Dextrose/Sodium Chloride 1,000 ml @ 125 mls/hr Q8H IV 02/27/19 14:01 02/27/19 14:35 DC Diphenhydramine HCl (Benadryl Elixir) 12.5 mg Q6H PRN PO ITCHING 02/27/19 14:15 Divalproex Sodium (Depakote Er) 1,000 mg QHS PO 02/27/19 21:00 03/02/19 20:32 Enoxaparin Sodium (Lovenox) 30 mg DAILY SC 03/01/19 09:00 03/01/19 09:00 DC Enoxaparin Sodium (Lovenox) 30 mg DAILY SC 03/01/19 09:00 03/01/19 09:00 DC Ertapenem 0.5 gm/ Sodium Chloride 50 ml @ 100 mls/hr Q24H IV 02/28/19 16:00 03/03/19 18:59 Ertapenem 1 gm/ Sodium Chloride 50 ml @ 100 mls/hr Q24H IV 02/27/19 14:15 02/27/19 14:40 DC Fat Emulsion Intravenous 500 ml @ 20 mls/hr ONCE@1800 IV 03/02/19 18:00 03/03/19 17:59 DC 03/02/19 17:32 Fat Emulsion Intravenous 500 ml @ 20 mls/hr ONCE@1800 IV 03/03/19 18:00 03/04/19 17:59 03/03/19 19:00 Fat Emulsion Intravenous 500 ml @ 20 mls/hr ONCE@1800 IV 03/04/19 18:00 03/05/19 17:59 Fentanyl Citrate (Sublimaze) 25 mcg Q5MP PRN IV MODERATE PAIN (PS 4-7) 02/27/19 15:00 02/27/19 16:00 DC Glucagon (Glucagon) 1 mg ASDIRECTED PRN SC SEE LABEL COMMENTS 02/27/19 14:15 Glucose (Glucose) 16 GM ASDIRECTED PRN PO SEE LABEL COMMENTS 02/27/19 14:15 Heparin Sodium (Porcine) (Heparin) 5,000 units Q12H SQ 03/01/19 09:00 03/02/19 10:30 DC 03/02/19 09:28 Home Med (Med Rec Complete!) ASDIRECTED XX 02/27/19 10:45 02/27/19 10:45 DC Hydromorphone HCl (Dilaudid) 0.2 mg Q5MP PRN IV MODERATE/SEVERE PAIN (PS 5-10) 02/27/19 15:00 02/27/19 16:00 DC 02/27/19 15:35 Insulin Human Lispro (HumaLOG INSULIN) SEE PROTOCOL TABLE QHS SC 02/27/19 21:00 02/27/19 21:00 DC Insulin Human Lispro (HumaLOG INSULIN) See Protocol Table AC SC 02/27/19 17:30 02/28/19 07:16 DC Insulin Human Lispro (HumaLOG INSULIN) See Protocol Table Q6H SC 03/03/19 18:00 03/04/19 12:01 DC Insulin Human Lispro (HumaLOG INSULIN) See Protocol Table Q6H SC 03/04/19 18:00 03/05/19 12:01 Ketorolac Tromethamine (ToRADol) 10 mg Q12H PRN IV pain 03/03/19 09:00 03/08/19 08:59 03/04/19 15:26 Ketorolac Tromethamine (ToRADol) 15 mg Q12H PRN IV pain 03/03/19 09:15 03/03/19 10:16 DC Magnesium Hydroxide (Milk Of Magnesia) 30 ml DAILY PO 02/28/19 09:00 03/04/19 11:29 Metoclopramide HCl (REGLAN INJection) 5 mg Q6HP PRN IV NAUSEA OR VOMITING 02/27/19 15:00 02/27/19 16:00 DC 02/27/19 14:50 Morphine Sulfate (Morphine Sulfate Inj) 4 mg Q3HP PRN IV SEVERE PAIN (PS 8-10) 02/27/19 14:15 03/03/19 13:54 DC 03/02/19 20:31 Nicotine (Nicoderm Cq 14mg) 1 patch DAILY TD 03/03/19 09:00 03/03/19 09:00 DC Ondansetron HCl (ZOFRAN INJection) 4 mg Q4HP PRN IV NAUSEA OR VOMITING 02/27/19 15:00 02/27/19 16:00 DC Ondansetron HCl (ZOFRAN INJection) 4 mg Q6HP PRN IV NAUSEA OR VOMITING 02/27/19 14:15 03/03/19 09:48 Oxycodone/ Acetaminophen (Percocet 5mg/ 325mg Tablet) 1 tab Q4HP PRN PO MODERATE PAIN (PS 5-7) 02/27/19 14:15 03/04/19 11:32 Oxycodone/ Acetaminophen (Percocet 5mg/ 325mg Tablet) 2 tab Q6HP PRN PO SEVERE PAIN (PS 8-10) 02/27/19 14:15 03/03/19 04:06 Pantoprazole Sodium (Protonix) 40 mg DAILY IV 02/27/19 09:00 03/04/19 11:29 Promethazine HCl (PHENERGAN INJection) 25 mg Q6HP PRN IV NAUSEA 02/27/19 19:45 02/28/19 00:18 DC 02/27/19 19:58 Senna/Docusate Sodium (Senokot S) 1 tab BID PO 02/28/19 09:00 03/04/19 11:28 Allergies Coded Allergies: Penicillins (Verified Allergy, Intermediate, RASH, 02/27/19) ciprofloxacin (Verified Adverse Reaction, Mild, NV, 02/27/19) Objective Physical Examination Examination GENERAL APPEARANCE: When she shows slightly now she looks uncomfortable with whenever we tried to move her she complains of pain all over otherwise not in any acute distress. SKIN: Warm and dry NECK: Supple, no thyromegaly. No obvious jugular venous distention. LUNGS: Clear to auscultation bilaterally. No wheezing appreciated. Shallow respiratory effort. HEART: No chest wall abnormalities. Regular rate and rhythm with no murmurs appreciated. ABDOMEN: Abdomen is round, soft, still mildly distended some more fullness over the right upper quadrant area. Seems less distended than yesterday. Left lower quadrant ostomy pale pink without otherwise viable. Small amount of air. No gross stool function yet. Midline incision is clean, dry and intact. SABINA drainage is pink serosanguineous EXTREMITIES: Extremities have no deformities. No edema identified. Vital Signs Vital Signs Date Time Temp Pulse Resp B/P (MAP) Pulse Ox O2 Delivery O2 Flow Rate FiO2 03/04/19 15:52 2.0 03/04/19 15:50 129/67 03/04/19 15:00 70 96 03/04/19 12:02 20 03/04/19 12:00 97.9 02/27/19 11:27 Room Air I&Os I&O- Last 24 Hours up to 6 AM 03/04/19 05:59 Intake Total 2180 ml Output Total 1550 ml Balance 630 ml Laboratory Data Labs 24H Laboratory Tests 2 03/03/19 16:20: Bedside Glucose (Misc Panel) 73L 03/03/19 19:16: Bedside Glucose (Misc Panel) 115H 03/03/19 23:06: Bedside Glucose (Misc Panel) 95 03/04/19 03:30: Bedside Glucose (Misc Panel) 98 03/04/19 03:31: Immature Granulocyte % (Auto) 4.6H, White Blood Count 8.7, Red Blood Count 3.96 L, Hemoglobin 11.7#L, Hematocrit 36.2, Mean Corpuscular Volume 91.4, Mean Corpuscular Hemoglobin 29.5, Mean Corpuscular Hemoglobin Concent 32.3, Red Cell Distribution Width 24.1H, Platelet Count 172, Neutrophils (%) (Auto) 54.6, Lymphocytes (%) (Auto) 13.4L, Monocytes (%) (Auto) 18.4H, Eosinophils (%) (Auto) 8.0H, Basophils (%) (Auto) 1.0, Neutrophils # (Auto) 4.7, Lymphocytes # (Auto) 1.2L, Monocytes # (Auto) 1.6H, Eosinophils # (Auto) 0.7H, Basophils # (Auto) 0.1, Nucleated Red Blood Cells % (auto) 0.0, Anion Gap 8, Glomerular Filtration Rate 16.7L, Blood Urea Nitrogen 34H, Creatinine 2.92H, Sodium Level 138, Potassium Level 4.1, Chloride Level 103, Carbon Dioxide Level 27, Calcium Level 8.4L 03/04/19 06:16: Bedside Glucose (Misc Panel) 101 03/04/19 10:37: Bedside Glucose (Misc Panel) 95 CBC/BMP Laboratory Tests 03/04/19 03:31 Red Blood Count 3.96 L, Mean Corpuscular Volume 91.4, Mean Corpuscular Hemoglobin 29.5, Mean Corpuscular Hemoglobin Concent 32.3, Red Cell Distribution Width 24.1 H, Neutrophils (%) (Auto) 54.6, Lymphocytes (%) (Auto) 13.4 L, Monocytes (%) (Auto) 18.4 H, Eosinophils (%) (Auto) 8.0 H, Basophils (%) (Auto) 1.0, Neutrophils # (Auto) 4.7, Lymphocytes # (Auto) 1.2 L, Monocytes # (Auto) 1.6 H, Eosinophils # (Auto) 0.7 H, Basophils # (Auto) 0.1, Calcium Level 8.4 L Microbiology Microbiology 02/27/19 Anaerobic Culture - Final, Complete Clostridium Perfringens Eubacterium Lentum Porphyromonas Asaccharolytica Actinomyces Israelii Fusobacterium Varium 03/03/19 Stool Occult Blood (SHANTHI) - Final, Complete 02/27/19 Urine Culture - Final, Complete 02/27/19 Gram Stain - Final, Complete 02/27/19 Abscess Culture - Final, Complete Klebsiella Pneumoniae Escherichia Coli Enterococcus Avium Streptococcus Mitis Streptococcus Anginosus Grp Impression POD5 Ex Lap, Sigmoid colon resection, colostomy for perforation at sigmoid colon d/t diverticulitis/fecal impaction still with episodes of hypoglycemia though not symptomatic, on D10 IVF ESRD on dialysis anemia multifactorial constipation/fecal impaction She is more awake today which I think is an improvement. We did have to come down on her narcotics and therefore she is having more pain. Her pain though is not distended in the abdomen that she complains of pain all over her body. She still is distended and stones no function yet from her colostomy. Overall she remains hemodynamically stable not septic appearing. She was voicing some frustration was even considering being placed on comfort measures only and this was brought up to her daughter who is her healthcare proxy was surprised by that. She is awake, alert and oriented though I'm not sure if she just prefers to be comfortable into being prodded and move around with this treatment. I think this will take a prolonged discussion to really figure out what she would eventually want. For now I'll thinks remains status quo with the treatment. I'll give her a dose of lactulose to try and see if we can get her colostomy to work much better. I reviewed the images on her CT scan and did not find anything unexpected. She has disc gallbladder distention which seems to be increased but she's been not eating well for the past few days so am not totally surprised by this. I will check her LFTs tomorrow with the labs. may resume eliquis dialysis today per nerphrology - would get a unit of blood with dialysis. Patient remains on Invanz. I reviewed the microbiology results. Should be adequate coverage. This will be difficult to confer to orals given allergy to both penicillin and 14 on screening reported by the patient. Continue with TPN Plan / VTE VTE Prophylaxis Ordered?: Yes CARL TAPIA MD Mar 04, 2019 16:14
[2019-03-04] MEDS ORDERED: LACTULOSE 20 GM/30 ML SYRUP UD PO ONE (16:15)
[2019-03-04] MEDS: ERTAPENEM SODIUM 0.5 GM in NS 50 ML IV SCH (16:48)
--- NOTE | 2019-03-04 17:59 | IPN ---
DATE: 03/03/2019 Mrs. Teague is seen this morning on her bedside. Nursing staff reports that she has been confused at times and not feeling well. Her blood pressure has been on the low side but she is afebrile. She had a CT scan of the head done last night which did not show any acute infarct or bleed. Her colostomy is still not putting out anything. PHYSICAL EXAMINATION: Temperature is 98.5 degrees Fahrenheit, heart rate 72 per minute and respiratory rate 16 per minute. Blood pressure 100/56 mmHg and oxygen saturation 96% on two liters of oxygen. Head is atraumatic. Right internal jugular vein dialysis catheter is present. Neck veins are not abnormally distended. Heart sounds are regular. Lungs with diminished breath sounds and poor inspiratory effort. Abdomen is soft and bowel sounds are hypoactive. Colostomy is present in the left lower quadrant. Neurologically, she does seem somewhat confused. LABORATORY DATA: Today's laboratories show WBC count 9.4, hemoglobin 8.0 and hematocrit 26.0. Platelets 184. Sodium 136, potassium 4.7, CO2 27, BUN 56 and creatinine 5.63. Glucose 111 and calcium 9.3. PROBLEMS: 1. End-stage renal disease. The patient will be dialyzed this afternoon. Her electrolytes are still within normal range and does not have any evidence of metabolic acidosis on her chemistry. Her blood pressure is somewhat low and I have advised the nursing staff to hold her clonidine for systolic blood pressure less than 130. We will try to remove one liter of fluid if tolerated. 2. Anemia. Her anemia did get worse following surgery. She will be transfused two units of packed red blood cells (RBCs) during dialysis today. 3. Pain. She does have pain and has not tolerated narcotics very well. She is somewhat lethargic. Dr. March has ordered Toradol. I feel that 10 mg of Toradol should be tried first and see how she responds. 4. Nutrition. She is already receiving total parenteral nutrition (TPN) as ordered by surgery.
[2019-03-04] MEDS ORDERED: AMINO AC/ELECTROLYTE/DEX/CALC 2,000 ML IV SCH (18:00)
[2019-03-04] MEDS ORDERED: FAT EMULSION IV 20% 500 ML IV SCH (18:00)
[2019-03-04] MEDS: ONDANSETRON 4MG/2ML VIAL (J2405) IV PRN (20:06)
--- NOTE | 2019-03-04 20:52 | IPN ---
DATE: 03/04/2019 Mrs. Teague is seen this morning on her bedside. She reports feeling somewhat better today though her daughter does not agree with her. The patient had hemodialysis yesterday which she tolerated very well. Her colostomy has not put out anything and abdomen is distended. Nursing staff reports that she aspirated last evening. Due to which, she has been made nothing by mouth. She is receiving total parenteral nutrition (TPN). PHYSICAL EXAMINATION: Temperature 98.2 degrees Fahrenheit, heart rate 70 per minute and respiratory rate 16 per minute. Blood pressure 120/57 mmHg and oxygen saturation 95% on two liters of oxygen. Head is atraumatic. She is using oxygen via nasal cannula. Neck is supple and jugular venous distention (JVD) is not abnormally elevated. Internal jugular vein catheter in the right side is present without any signs of infection at the site. Heart sounds are regular. Lungs with diminished breath sounds at bases. Abdomen is protuberant and mildly tender. Bowel sounds are hypoactive. Colostomy in left lower quadrant is present. Extremities have no cyanosis or clubbing. LABORATORY DATA: Today's laboratories show WBC count 8.7, hemoglobin 11.7 and hematocrit 36.2. Platelets 172. Sodium 138, potassium 4.1, CO2 27, BUN 34 and creatinine 2.92. Glucose 93 and calcium 8.4. PROBLEMS: 1. End-stage renal disease. The patient was dialyzed yesterday and we will reevaluate her tomorrow for another dialysis treatment. Her electrolytes are within normal range and volume status is reasonably well-compensated. 2. Abdominal pain, status post colostomy for perforated viscus and fecal impaction. Colostomy has not functioned. She just had a CT scan of abdomen and pelvis done and results are pending. She has been made nothing by mouth due to aspiration. She is receiving total parenteral nutrition (TPN). 3. Anemia. She received two units of packed red blood cells (RBCs) yesterday and anemia has improved significantly. No intervention is needed at this point.
[2019-03-04] MEDS: DIVALPROEX 500MG *ER* TAB PO SCH (21:40)
[2019-03-04] MEDS: amLODIPine 5 MG TAB PO SCH (21:41)
[2019-03-05] VITALS (8 sets, daily range): BP systolic 133–156; BP diastolic 66–104
[2019-03-05] MEDS: PERCOCET 5MG/325MG TAB PO PRN ×2 (00:06→04:31)
[2019-03-05 05:01] LABS: HEMATOCRIT 35.5 % (36.0-47.0); HEMOGLOBIN 11.6 g/dl (12.0-15.5); MEAN CORPUSCULAR HEMOGLOBIN 29.3 pg (27.0-33.0); MEAN CORPUSCULAR HGB CONC 32.7 g/dl (32.0-36.5); MEAN CORPUSCULAR VOLUME 89.6 fl (80.0-96.0); PLATELET COUNT, AUTOMATED 231 10^3/uL (150-450); RED BLOOD COUNT 3.96 10^6/uL (4.00-5.40); WHITE BLOOD COUNT 10.4 10^3/uL (4.0-10.0)
[2019-03-05 05:29] LABS: ANISOCYTOSIS 3+; BASOPHILS 2 % (0-4); EOSINOPHILS 8 % (0-5); LYMPHOCYTES 12 % (16-52); METAMYELOCYTES 3 % (0-0); MONOCYTES 5 % (0-8); MYELOCYTES 1 % (0-0); NEUTROPHILS 66 % (35-75); PLATELET ESTIMATE NORMAL (NORMAL)
[2019-03-05 05:30] LABS: OVALOCYTES 1+; POLYCHROMASIA 1+
[2019-03-05 05:33] LABS: ALBUMIN 1.6 GM/DL (3.2-5.2); BILIRUBIN,TOTAL 0.4 MG/DL (0.2-1.0); CALCIUM LEVEL 9.7 MG/DL (8.8-10.2); CREATININE FOR GFR 3.85 MG/DL (0.55-1.30); GLOMERULAR FILTRATION RATE 12.1 (>39); POTASSIUM SERUM 4.7 MEQ/L (3.5-5.1); TOTAL PROTEIN 5.1 GM/DL (6.4-8.2)
[2019-03-05] MEDS: HumaLOG INSULIN (NovoLOG) PER UNIT SC SCH ×2 (05:40)
[2019-03-05] MEDS: ONDANSETRON 4MG/2ML VIAL (J2405) IV PRN (07:46)
[2019-03-05] MEDS ORDERED: SCOPOLAMINE 1MG TRANSDERMAL PATCH TOP PRN (09:00)
[2019-03-05] MEDS: APIXABAN 2.5 MG TAB (ELIQUIS) PO SCH ×2 (09:00→20:29)
[2019-03-05] MEDS: ATORVASTATIN 10 MG TAB PO SCH (09:00)
[2019-03-05] MEDS: cloNIDine 0.1 MG TAB PO SCH ×3 (09:00→20:29)
[2019-03-05] MEDS: BISACODYL 10 MG SUPP PR SCH (09:00)
[2019-03-05] MEDS: PANTOPRAZOLE 40MG INJ (PROTONIX) (C9113) IV SCH (09:00)
[2019-03-05] MEDS: MOM 30ML SUSPENSION UDC PO SCH (09:00)
[2019-03-05] MEDS: SENOKOT S TAB PO SCH ×2 (09:00→20:30)
--- NOTE | 2019-03-05 09:11 | IPNPDOC ---
Text Note Date of Service The patient was seen on 03/05/19. NOTE Patient again voices and wished be made comfort measures only. Her daughter who is her healthcare proxy was at the bedside during this discussion and she has been clear she doesn't want any active treatment at this time and just be made comfortable. We will stop all all active treatment including dialysis VS,Fishbone, I+O VS, Fishbone, I+O Laboratory Tests 03/05/19 04:46 Red Blood Count 3.96 L, Mean Corpuscular Volume 89.6, Mean Corpuscular Hemoglobin 29.3, Mean Corpuscular Hemoglobin Concent 32.7, Red Cell Distribution Width 23.3 H, Calcium Level 9.7 #, Aspartate Amino Transf (AST/SGOT) 24, Alanine Aminotransferase (ALT/SGPT) 18, Alkaline Phosphatase 340 H, Total Bilirubin 0.4, Total Protein 5.1 L, Albumin 1.6 L Vital Signs Date Time Temp Pulse Resp B/P (MAP) Pulse Ox O2 Delivery O2 Flow Rate FiO2 03/05/19 06:00 67 17 134/67 (89) 98 2.0 03/05/19 04:00 98.3 02/27/19 11:27 Room Air I&O- Last 24 Hours up to 6 AM 03/05/19 06:00 Intake Total 2020 ml Output Total 50 ml Balance 1970 ml CARL TAPIA MD Mar 05, 2019 09:11
[2019-03-05] MEDS: MORPHINE 4 MG/ML 1ML VIAL/SYRINGE (J2270) IV PRN ×5 (09:25→20:29)
[2019-03-05] MEDS ORDERED: ONDANSETRON 4 MG ORAL DISINTEGRATING TAB (Q0162 PER 1MG) PO PRN (10:45)
[2019-03-05] MEDS ORDERED: ATROPINE SULFATE 1% OP SOLN 2 ML BTL SL PRN (10:45)
[2019-03-05] MEDS ORDERED: LORazepam 1 MG TAB PO PRN (10:45)
[2019-03-05] MEDS ORDERED: HYOSCYAMINE SULFATE 0.125 MG SUBL TABLET PO PRN (10:45)
[2019-03-05] MEDS ORDERED: LORazepam 2 MG/ML VIAL (J2060) IV PRN (10:45)
--- NOTE | 2019-03-05 10:55 | IPNPDOC ---
Text Note Date of Service The patient was seen on 03/05/19. 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 states pain is controlled , just wants all proced ures and tests to stop. Duaghter in room and in agreement O:Vitals as below General: poor eye contact, NAD AAOx3 HRRR Ext: no edema A/P: COMMUNITY ORGANIZATION WORKER per attending Will maintain BP and seizure meds (patient advised she can refuse medications) for patient comfort dc TPN, Insulin, accucheck and non essential medications. pain medications adjusted. Continue to follow VS,Guilhermebone, I+O VS, Fishbone, I+O Laboratory Tests 03/05/19 04:46 Red Blood Count 3.96 L, Mean Corpuscular Volume 89.6, Mean Corpuscular Hemoglobin 29.3, Mean Corpuscular Hemoglobin Concent 32.7, Red Cell Distribution Width 23.3 H, Calcium Level 9.7 #, Aspartate Amino Transf (AST/SGOT) 24, Alanine Aminotransferase (ALT/SGPT) 18, Alkaline Phosphatase 340 H, Total Bilirubin 0.4, Total Protein 5.1 L, Albumin 1.6 L Vital Signs Date Time Temp Pulse Resp B/P (MAP) Pulse Ox O2 Delivery O2 Flow Rate FiO2 03/05/19 08:00 2.0 03/05/19 06:00 67 17 134/67 (89) 98 03/05/19 04:00 98.3 02/27/19 11:27 Room Air I&O- Last 24 Hours up to 6 AM 03/05/19 06:00 Intake Total 2020 ml Output Total 50 ml Balance 1970 ml RAYO RUSH DO Mar 05, 2019 10:08
[2019-03-05] MEDS: DIVALPROEX 500MG *ER* TAB PO SCH (20:29)
[2019-03-05] MEDS: amLODIPine 5 MG TAB PO SCH (20:29)
[2019-03-06] MEDS: MORPHINE 4 MG/ML 1ML VIAL/SYRINGE (J2270) IV PRN ×2 (05:22→21:37)
[2019-03-06] MEDS: APIXABAN 2.5 MG TAB (ELIQUIS) PO SCH ×2 (09:00→21:37)
[2019-03-06] MEDS: BISACODYL 10 MG SUPP PR SCH (09:00)
[2019-03-06] MEDS: MOM 30ML SUSPENSION UDC PO SCH (09:00)
[2019-03-06] MEDS: cloNIDine 0.1 MG TAB PO SCH ×3 (09:00→21:00)
[2019-03-06] MEDS: SENOKOT S TAB PO SCH ×2 (09:00→21:36)
--- NOTE | 2019-03-06 09:04 | IPNPDOC ---
Text Note Date of Service The patient was seen on 03/06/19. NOTE No acute events overnight. She is slightly uncomfortable, but does not want me to do anything for her. She just wants "to get it over with". I asked if there was anything I could do to make her more comfortable and she denied anything. VSSAF NAD A) 73y/o female s/p ex lap for perforated viscus. ESRD P) GRAPHIC TECHNICIAN Edvin Porter DO VS,Fishbone, I+O VS, Fishbone, I+O Vital Signs Date Time Temp Pulse Resp B/P (MAP) Pulse Ox O2 Delivery O2 Flow Rate FiO2 03/06/19 05:32 16 03/05/19 23:00 2.0 03/05/19 08:00 97.7 70 133/67 (89) 96 I&O- Last 24 Hours up to 6 AM 03/06/19 05:59 Intake Total 190 ml Output Total 10 ml Balance 180 ml HERSON PORTER DO Mar 06, 2019 09:04
[2019-03-06] MEDS: MORPHINE 10MG/0.5ML ORAL CONCENTRATE SOLUTION U/D SL PRN ×2 (09:13→11:32)
--- NOTE | 2019-03-06 18:34 | IPNPDOC ---
Text Note Date of Service The patient was seen on 03/06/19. 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 she states pain is controlled. She is inquiring about getting a family tree put together with daughter. Lacy has questions and concerns about medications being received. Patient is aware she can refuse all medications. We discussed that BP medication were to keep her from having HTN HAMLIN, seizure medications to prevent active seizure from keeping her comfortable (she declined seizure med yesterday but requested today). Patient inquired about getting dialysis done. O: no vitals No physical exam - patient DRY LUMBER GRADER A/P: Patient is currently on DRY LUMBER GRADER after choosing to stop all treatments for her post op recovery of repaired sigmoid perforation, ESRD , etc She had visit from her brother which boosted her spirits and ate greater than 50% dinner. Discussed with patient and jamelhter that she can rescind DRY LUMBER GRADER but that she can not have dialysis and be on DRY LUMBER GRADER. Patient main concern is pain and not wanting aggressive physical therapy. She will think about it tonight. WIll meet with daughter and patient tomorrow to further discuss DRY LUMBER GRADER status vs rescinding DRY LUMBER GRADER. Time spend with patient and family 30 minutes VS,Patito, I+O VS, Carlose, I+O Vital Signs Date Time Temp Pulse Resp B/P (MAP) Pulse Ox O2 Delivery O2 Flow Rate FiO2 03/06/19 12:22 16 03/05/19 23:00 2.0 03/05/19 08:00 97.7 70 133/67 (89) 96 I&O- Last 24 Hours up to 6 AM 03/06/19 05:59 Intake Total 190 ml Output Total 10 ml Balance 180 ml RAYO RUSH DO Mar 06, 2019 18:34
[2019-03-06] MEDS: amLODIPine 5 MG TAB PO SCH (21:00)
[2019-03-06] MEDS: DIVALPROEX 500MG *ER* TAB PO SCH (21:37)
[2019-03-07] MEDS: MORPHINE 4 MG/ML 1ML VIAL/SYRINGE (J2270) IV PRN ×5 (06:13→22:14)
[2019-03-07] MEDS: cloNIDine 0.1 MG TAB PO SCH ×3 (09:00→21:00)
[2019-03-07] MEDS: APIXABAN 2.5 MG TAB (ELIQUIS) PO SCH (10:32)
[2019-03-07] MEDS: SENOKOT S TAB PO SCH ×2 (10:32→21:00)
[2019-03-07] MEDS: BISACODYL 10 MG SUPP PR SCH (10:33)
[2019-03-07] MEDS: MOM 30ML SUSPENSION UDC PO SCH (10:34)
--- NOTE | 2019-03-07 11:49 | IPNPDOC ---
Text Note Date of Service The patient was seen on 03/07/19. NOTE No acute events overnight. She is slightly uncomfortable, but does not want me to do anything for her still. We had a long conversation about FLUID JET CUTTER OPERATOR vs. restarting dialysis and trying to diagnose her swelling and pain. She would still like to continue the FLUID JET CUTTER OPERATOR for now. If anything changes they will call me. VSSAF NAD A) 73y/o female s/p ex lap for perforated viscus. ESRD P) FLUID JET CUTTER OPERATOR Edvin Porter DO VS,Fishbone, I+O VS, Fishbone, I+O Vital Signs Date Time Temp Pulse Resp B/P (MAP) Pulse Ox O2 Delivery O2 Flow Rate FiO2 03/07/19 10:44 18 03/06/19 20:30 2.0 03/05/19 08:00 97.7 70 133/67 (89) 96 I&O- Last 24 Hours up to 6 AM 03/07/19 05:59 Intake Total 600 ml Output Total 10 ml Balance 590 ml HERSON PORTER DO Mar 07, 2019 11:49
--- NOTE | 2019-03-07 16:41 | IPNPDOC ---
Text Note Date of Service The patient was seen on 03/07/19. NOTE received call from nursing staff stating patient and daughter wanted to discuss HOBBER status with me. They had already discussed HOBBER status with surgeon this AM. Spoke with patient and daughter at 1445 today. daughter is having difficulty accepting HOBBER status but will "support whatever decision" the patient makes. Daughter inquired about check blood pressure, art line, etc. Patient states does not want BP checked because too painful with inflation of cuff on fibromyalgia arms. Patient does not want invasive procedures like art line. Patient states she does not want dialysis and only wants to be kept comfortable. Patient had difficulty swallowing depakote pill last night and daughter is requesting liquid medications. Discussed patient that she has the right and choice to decline medications. patient states she will try liquid medications if available. Discussed morphine OBSTETRICS TECHNICIAN if pain is out of control and patient is declining. She is satisfied with current treatment. MOLST updated to reflect HOBBER change in status. 20 minutes spent discussing HOBBER status [id number] VS,Fishbone, I+O VS, Fishbone, I+O Vital Signs Date Time Temp Pulse Resp B/P (MAP) Pulse Ox O2 Delivery O2 Flow Rate FiO2 03/07/19 14:00 18 03/07/19 09:00 2.0 03/05/19 08:00 97.7 70 133/67 (89) 96 I&O- Last 24 Hours up to 6 AM 03/07/19 06:00 Intake Total 540 ml Output Total 10 ml Balance 530 ml RAYO RUSH DO Mar 07, 2019 16:41
[2019-03-07] MEDS: amLODIPine 5 MG TAB PO SCH (21:00)
[2019-03-07] MEDS: DIVALPROEX SPRINKLE 125 MG CAP PO SCH ×2 (21:00→22:15)
[2019-03-08] MEDS: MORPHINE 4 MG/ML 1ML VIAL/SYRINGE (J2270) IV PRN ×3 (05:16→15:45)
[2019-03-08] MEDS: DIVALPROEX SPRINKLE 125 MG CAP PO SCH (08:52)
[2019-03-08] MEDS: cloNIDine 0.1 MG TAB PO SCH ×2 (08:52→16:00)
[2019-03-08] MEDS: MOM 30ML SUSPENSION UDC PO SCH (08:53)
[2019-03-08] MEDS: BISACODYL 10 MG SUPP PR SCH (08:53)
[2019-03-08] MEDS: SENOKOT S TAB PO SCH (08:53)
--- NOTE | 2019-03-08 09:51 | IPNPDOC ---
Subjective General Date/Time Seen The patient was seen on 03/08/19 at 09:23. Subject Chief Complaint/History The patient is a 73-year-old female admitted with a reason for visit of Perforated Viscus. Patient seen very lethargic, barely awake. Current Medications Current Medications Current Medications Medications (Trade) Dose Ordered Sig/Katelyn Route PRN Reason Start Time Stop Time Status Last Admin Dose Admin Acetaminophen (Tylenol Tab) 650 mg Q4HP PRN PO MILD PAIN or TEMP > 101 02/27/19 14:15 Albuterol Sulfate (Proventil, Ventolin Hfa) 2 puff Q4H PRN INH SHORTNESS OF BREATH 02/27/19 14:15 Amino Ac/Electrol/ Dextrose/Calcium 2,000 ml @ 60 mls/hr ONCE@1800 IV 03/02/19 18:00 03/03/19 17:59 DC 03/02/19 17:31 Amino Ac/Electrol/ Dextrose/Calcium 2,000 ml @ 60 mls/hr ONCE@1800 IV 03/03/19 18:00 03/04/19 17:59 DC 03/03/19 18:59 Amino Ac/Electrol/ Dextrose/Calcium 2,000 ml @ 60 mls/hr ONCE@1800 IV 03/04/19 18:00 03/05/19 10:11 DC 03/04/19 17:57 Amlodipine Besylate (Norvasc) 5 mg QHS PO 02/27/19 21:00 03/04/19 21:41 Apixaban (Eliquis) 2.5 mg BID PO 03/02/19 21:00 03/07/19 18:11 DC 03/07/19 10:32 Atorvastatin Calcium (Lipitor) 10 mg DAILY PO 02/28/19 09:00 03/05/19 10:51 DC 03/04/19 11:28 Atropine Sulfate (Isopto Atropine 1%) 1 drop Q2HP PRN SL TERMINAL SECRETIONS 03/05/19 10:45 Bisacodyl (Dulcolax Suppository) 10 mg DAILY IA 02/28/19 09:00 03/07/19 10:33 Clonidine HCl (Catapres) 0.1 mg TID PO 02/27/19 16:00 03/04/19 21:41 Dextrose (Dextrose 50%) 25 ml ASDIRECTED PRN IV SEE LABEL COMMENTS 02/27/19 14:15 03/05/19 10:56 DC Dextrose (Dextrose 50%) 50 ml STAT STAT IV 02/28/19 07:15 02/28/19 07:16 DC 02/28/19 08:48 Dextrose (Dextrose 50%) 50 ml STAT STAT IV 02/28/19 12:07 02/28/19 12:09 DC 02/28/19 12:33 Dextrose (Dextrose 50%) 50 ml STAT STAT IV 02/28/19 16:07 02/28/19 16:08 DC 02/28/19 17:52 Dextrose/Sodium Chloride 1,000 ml @ 30 mls/hr Q24H IV 02/27/19 15:00 02/27/19 16:00 DC Dextrose/Sodium Chloride 1,000 ml @ 30 mls/hr Q24H IV 02/28/19 14:00 03/02/19 17:59 DC 03/01/19 14:22 Dextrose/Sodium Chloride 1,000 ml @ 50 mls/hr Q20H IV 02/27/19 15:45 02/28/19 11:44 DC 02/27/19 17:39 Dextrose/Sodium Chloride 1,000 ml @ 100 mls/hr Q10H IV 02/27/19 11:00 02/27/19 14:16 DC Dextrose/Sodium Chloride 1,000 ml @ 100 mls/hr Q10H IV 02/27/19 14:01 02/27/19 15:35 DC Dextrose/Sodium Chloride 1,000 ml @ 125 mls/hr Q8H IV 02/27/19 14:01 02/27/19 14:35 DC Diphenhydramine HCl (Benadryl Elixir) 12.5 mg Q6H PRN PO ITCHING 02/27/19 14:15 03/06/19 09:29 Divalproex Sodium (Depakote Sprinkles) 500 mg BID PO 03/07/19 21:00 Divalproex Sodium (Depakote Er) 1,000 mg QHS PO 02/27/19 21:00 03/07/19 18:29 DC 03/06/19 21:37 Enoxaparin Sodium (Lovenox) 30 mg DAILY SC 03/01/19 09:00 03/01/19 09:00 DC Enoxaparin Sodium (Lovenox) 30 mg DAILY SC 03/01/19 09:00 03/01/19 09:00 DC Ertapenem 0.5 gm/ Sodium Chloride 50 ml @ 100 mls/hr Q24H IV 02/28/19 16:00 03/05/19 10:11 DC 03/04/19 16:48 Ertapenem 1 gm/ Sodium Chloride 50 ml @ 100 mls/hr Q24H IV 02/27/19 14:15 02/27/19 14:40 DC Fat Emulsion Intravenous 500 ml @ 20 mls/hr ONCE@1800 IV 03/02/19 18:00 03/03/19 17:59 DC 03/02/19 17:32 Fat Emulsion Intravenous 500 ml @ 20 mls/hr ONCE@1800 IV 03/03/19 18:00 03/04/19 17:59 DC 03/03/19 19:00 Fat Emulsion Intravenous 500 ml @ 20 mls/hr ONCE@1800 IV 03/04/19 18:00 03/05/19 10:11 DC 03/04/19 17:57 Fentanyl Citrate (Sublimaze) 25 mcg Q5MP PRN IV MODERATE PAIN (PS 4-7) 02/27/19 15:00 02/27/19 16:00 DC Glucagon (Glucagon) 1 mg ASDIRECTED PRN SC SEE LABEL COMMENTS 02/27/19 14:15 03/05/19 10:56 DC Glucose (Glucose) 16 GM ASDIRECTED PRN PO SEE LABEL COMMENTS 02/27/19 14:15 03/05/19 10:56 DC Heparin Sodium (Porcine) (Heparin) 5,000 units Q12H SQ 03/01/19 09:00 03/02/19 10:30 DC 03/02/19 09:28 Home Med (Med Rec Complete!) ASDIRECTED XX 02/27/19 10:45 02/27/19 10:45 DC Hydromorphone HCl (Dilaudid) 0.2 mg Q5MP PRN IV MODERATE/SEVERE PAIN (PS 5-10) 02/27/19 15:00 02/27/19 16:00 DC 02/27/19 15:35 Hyoscyamine Sulfate (Levsin) 0.125 mg Q4HP PRN PO TERMINAL SECRETIONS 03/05/19 10:45 Insulin Human Lispro (HumaLOG INSULIN) SEE PROTOCOL TABLE QHS SC 02/27/19 21:00 02/27/19 21:00 DC Insulin Human Lispro (HumaLOG INSULIN) See Protocol Table AC ME 02/27/19 17:30 02/28/19 07:16 DC Insulin Human Lispro (HumaLOG INSULIN) See Protocol Table Q6H ME 03/03/19 18:00 03/04/19 12:01 DC Insulin Human Lispro (HumaLOG INSULIN) See Protocol Table Q6H ME 03/04/19 18:00 03/05/19 10:11 DC Ketorolac Tromethamine (ToRADol) 10 mg Q12H PRN IV pain 03/03/19 09:00 03/08/19 08:59 DC 03/04/19 15:26 Ketorolac Tromethamine (ToRADol) 15 mg Q12H PRN IV pain 03/03/19 09:15 03/03/19 10:16 DC Lorazepam (Ativan) 1 mg Q2HP PRN IV ANXIETY 03/05/19 10:45 Lorazepam (Ativan) 1 mg Q2HP PRN PO ANXIETY 03/05/19 10:45 Magnesium Hydroxide (Milk Of Magnesia) 30 ml DAILY PO 02/28/19 09:00 03/07/19 10:34 Metoclopramide HCl (REGLAN INJection) 5 mg Q6HP PRN IV NAUSEA OR VOMITING 02/27/19 15:00 02/27/19 16:00 DC 02/27/19 14:50 Miscellaneous (Unresolved Clarification Entry) SEE LABEL COMMENTS DAILY XX 03/05/19 09:00 03/06/19 08:08 DC Miscellaneous (Unresolved Clarification Entry) SEE LABEL COMMENTS DAILY XX 03/06/19 09:00 03/06/19 11:17 DC Morphine Sulfate (Morphine Sulfate Inj) 2 mg Q2HP PRN IV SEVERE PAIN (PS 8-10) 03/05/19 09:00 03/08/19 05:16 Morphine Sulfate (Morphine Sulfate Inj) 4 mg Q3HP PRN IV SEVERE PAIN (PS 8-10) 02/27/19 14:15 03/03/19 13:54 DC 03/02/19 20:31 Morphine Sulfate (Roxanol) 3 mg Q2HP PRN SL SEVERE PAIN (PS 8-10) 03/05/19 09:00 03/06/19 11:32 Nicotine (Nicoderm Cq 14mg) 1 patch DAILY TD 03/03/19 09:00 03/03/19 09:00 DC Ondansetron HCl (ZOFRAN INJection) 4 mg Q4HP PRN IV NAUSEA OR VOMITING 02/27/19 15:00 02/27/19 16:00 DC Ondansetron HCl (ZOFRAN INJection) 4 mg Q6HP PRN IV NAUSEA OR VOMITING 02/27/19 14:15 03/05/19 07:46 Ondansetron HCl (Zofran Odt) 4 mg Q6HP PRN PO NAUSEA OR VOMITING 03/05/19 10:45 Oxycodone/ Acetaminophen (Percocet 5mg/ 325mg Tablet) 1 tab Q4HP PRN PO MODERATE PAIN (PS 5-7) 02/27/19 14:15 03/05/19 04:31 Oxycodone/ Acetaminophen (Percocet 5mg/ 325mg Tablet) 2 tab Q6HP PRN PO SEVERE PAIN (PS 8-10) 02/27/19 14:15 03/03/19 04:06 Pantoprazole Sodium (Protonix) 40 mg DAILY IV 02/27/19 09:00 03/05/19 10:51 DC 03/04/19 11:29 Promethazine HCl (PHENERGAN INJection) 25 mg Q6HP PRN IV NAUSEA 02/27/19 19:45 02/28/19 00:18 DC 02/27/19 19:58 Scopolamine (Scopolamine) 1 mg Q3DP PRN TOP EXCESSIVE SECRETIONS 03/05/19 09:00 Senna/Docusate Sodium (Senokot S) 1 tab BID PO 02/28/19 09:00 03/07/19 10:32 Allergies Coded Allergies: Penicillins (Verified Allergy, Intermediate, RASH, 02/27/19) ciprofloxacin (Verified Adverse Reaction, Mild, NV, 02/27/19) Objective Physical Examination Examination GENERAL APPEARANCE:lethargic, occasional spontaneous eye opening. some secretions on mouth. Vital Signs Vital Signs Date Time Temp Pulse Resp B/P (MAP) Pulse Ox O2 Delivery O2 Flow Rate FiO2 03/07/19 22:00 2.0 03/07/19 17:11 18 03/05/19 08:00 97.7 70 133/67 (89) 96 I&Os I&O- Last 24 Hours up to 6 AM 03/08/19 05:59 Intake Total 0 ml Balance 0 ml Laboratory Data Microbiology Microbiology 02/27/19 Anaerobic Culture - Final, Complete Clostridium Perfringens Eubacterium Lentum Porphyromonas Asaccharolytica Actinomyces Israelii Fusobacterium Varium 03/03/19 Stool Occult Blood (SHANTHI) - Final, Complete 02/27/19 Urine Culture - Final, Complete 02/27/19 Gram Stain - Final, Complete 02/27/19 Abscess Culture - Final, Complete Klebsiella Pneumoniae Escherichia Coli Enterococcus Avium Streptococcus Mitis Streptococcus Anginosus Grp Impression POD9 Ex Lap Sigmoid Colectomy, Colostomy for Perforated Diverticulitis, fecal i mpaction 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 Plan / VTE VTE Prophylaxis Ordered?: Yes CARL TAPIA MD Mar 08, 2019 09:24
--- NOTE | 2019-03-17 03:16 | DS.PDOC ---
Discharge Summary General Date of Admission Feb 27, 2019 at 10:12 Date of Discharge 2018 Attending Physician: CARL TAPIA MD Specialist/Consultants Involve: OG JUNE MD @ Specialist/Consultants Inv[facility] Discharge Summary PROCEDURES PERFORMED DURING STAY: Exploratory laparotomy, sigmoid colon resection, colostomy. ADMITTING DIAGNOSES: 1. Perforated viscus with generalized peritonitis 2. End-stage renal disease on dialysis 3. Hypoglycemia 4. Constipation and fecal impaction DISCHARGE DIAGNOSES: 1. Perforated sigmoid colon. 2. End-stage renal disease and dialysis 3. Hypoglycemia 4. Constipation and fecal impaction COMPLICATIONS/CHIEF COMPLAINT: Perforated Viscus. HISTORY OF PRESENT ILLNESS: 73 F on hemodialysis presented to the ER at about 2:00 this morning with continuous crampy abdominal pain since at 3 am with nausea, though no vomiting found to have evidence for free air in the CT consistent with perforated viscus. Her daughter reports history of constipation. She felt constipated yesterday that she wanted to get some labs to disimpact herself. 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 She denies prior episodes similar to this. HOSPITAL COURSE: Patient was taken to the operating room after being evaluated in the emergency room. She was given extra dose of D50 for hypoglycemia. She was given IV antibiotics. She underwent abdominal exploration was found to have perforated sigmoid colon. She underwent sigmoid colon resection with placement of an end colostomy. She remained hemodynamically stable. She was admitted to the ICU for close monitoring. She continued to have problems with hypoglycemia and she was switched to a D5 containing IV fluids. Consultation with nephrology she underwent ultrafiltration the first night and subsequent dialysis determined by nephrology. He continued on IV antibiotics. She was also manage with the hospitalist medical service to manage all her other review these. She remained hemodynamically stable but slow to recover mainly given her age and baseline health status. She felt weak. She remained distended and her colostomy never really functioned efficiently which I thought was from her fecal impaction. She was given scheduled doses of multiple laxatives without good consistent results. Another problem was giving her pain medications. Initially she was becoming more lethargic and as we taper down her narcotic pain medications she then started having more than abdominal pain. She Complaining of pain throughout her body when she attached by a nurse mainly from her fibromyalgia. This complicated the care as she would not participate with physical therapy or occupational therapy multiple times due to the discomfort. She continued on as needed dialysis. 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 She was made comfortable as best as we can and eventually she succumbed most likely to the electrode derangements that should she has for gone hemodialysis. DISCHARGE MEDICATIONS: Please see below. ALLERGIES: Please see below. PHYSICAL EXAMINATION ON DISCHARGE: VITAL SIGNS: Please see below. Patient is diseased LABORATORY DATA: Please see below. IMAGING: CT scan of the abdomen and pelvis DISPOSITION: 20 . DISCHARGE CONDITION: TIME SPENT ON DISCHARGE: Greater than 30 minutes. Discharge Medications Scheduled Amlodipine Besylate (Amlodipine Besylate) 5 Mg Tablet, 5 MG PO QHS, (Reported) Apixaban (Eliquis) 2.5 Mg Tablet, 2.5 MG PO BID, (Reported) Atorvastatin Calcium (Atorvastatin Calcium) 10 Mg Tablet, 10 MG PO DAILY, (Reported) Bupropion HCl (Bupropion Xl) 150 Mg Tab.er.24h, 150 MG PO DAILY, (Reported) Clonidine Hcl (Clonidine HCl) 0.1 Mg Tablet, 0.1 MG PO TID, (Reported) Divalproex Sodium (Depakote ER) 500 Mg Tab.er.24h, 2 TAB PO QHS, (Reported) Pantoprazole Sodium (Pantoprazole Sodium) 40 Mg Tablet.dr, 40 MG PO DAILY, (Reported) Sevelamer Carbonate (Renvela) 800 Mg Tablet, 1,600 MG PO WM, (Reported) Vit B Comp No.3/Folic/C/Biotin (Mariza-Janak Rx Tablet) 1 Each Tablet, 1 TAB PO DAILY, (Reported) Scheduled PRN Acetaminophen (Mapap) 325 Mg Tablet, 650 MG PO Q4H PRN for PAIN, (Reported) Albuterol Sulfate (Proair Hfa) 8.5 Gm Hfa.aer.ad, 2 PUFF INH Q4H PRN for SHORTNESS OF BREATH, (Reported) Diphenhydramine HCl (Benadryl) 25 Mg Capsule, 12.5 MG PO PRN PRN for ITCHING, (Reported) Docusate Sodium (Colace) 100 Mg Capsule, 100 MG PO DAILY PRN for CONSTIPATION, (Reported) Hydrocodone/Acetaminophen (Hydrocodone-Acetamin 5-325 mg) 1 Each Tablet, 1 TAB PO BID PRN for PAIN, (Reported) Naproxen Sodium (Aleve) 220 Mg Tablet, 220 MG PO QHS PRN for PAIN, (Reported) Ondansetron (Ondansetron Odt) 4 Mg Tab.rapdis, 4 MG PO Q6H PRN for NAUSEA OR VOMITING, (Reported) Peppermint Oil (Ibgard) 90 Mg Capdr...er, 90 MG PO for IBS, (Reported) Allergies Coded Allergies: Penicillins (Verified Allergy, Intermediate, RASH, 02/27/19) ciprofloxacin (Verified Adverse Reaction, Mild, NV, 02/27/19) CARL TAPIA MD Mar 17, 2019 03:16
== END 2019-03-08 17:30 | disposition expired | DRG 329 ==
LOC: M ED 02:19 → M ED INP 10:12 → M ICU 16:11 → M MS5PR 03-05 22:50
PROVIDERS: ADMIT Surgery; ATTEND Surgery
PROC: 0D1N0J4 Bypass Sigmoid Colon to Cutaneous with Synthetic Substitute, Open Approach (ICD-10-PCS; 2019-02-27)
PROC: 5A1D70Z Performance of Urinary Filtration, Intermittent, Less than 6 Hours Per Day (ICD-10-PCS; 2019-02-27)
PROC: 0DBN0ZZ Excision of Sigmoid Colon, Open Approach (ICD-10-PCS; principal; 2019-02-27 12:00)
PROC: 30233N1 Transfusion of Nonautologous Red Blood Cells into Peripheral Vein, Percutaneous Approach (ICD-10-PCS; 2019-03-02)
DX: K57.20 Diverticulitis of large intestine with perforation and abscess without bleeding (principal); N18.6 End stage renal disease; I12.0 Hypertensive chronic kidney disease with stage 5 chronic kidney disease or end stage renal disease; N25.81 Secondary hyperparathyroidism of renal origin; K56.41 Fecal impaction; F32.9 Major depressive disorder, single episode, unspecified; E78.5 Hyperlipidemia, unspecified; E16.2 Hypoglycemia, unspecified; K21.9 Gastro-esophageal reflux disease without esophagitis; Z51.5 Encounter for palliative care; D63.1 Anemia in chronic kidney disease; B96.1 Klebsiella pneumoniae [K. pneumoniae] as the cause of diseases classified elsewhere; B96.20 Unspecified Escherichia coli [E. coli] as the cause of diseases classified elsewhere; E87.5 Hyperkalemia; Z53.31 Laparoscopic surgical procedure converted to open procedure; Z86.718 Personal history of other venous thrombosis and embolism; Z99.2 Dependence on renal dialysis; Z95.828 Presence of other vascular implants and grafts; Z88.0 Allergy status to penicillin; Z88.1 Allergy status to other antibiotic agents; Z79.01 Long term (current) use of anticoagulants; Z79.899 Other long term (current) drug therapy